=== PATIENT | male | born 1970 | race Caucasian/White ===

== ENCOUNTER 2016-04-13 20:04 | Inpatient (IN) | payer OTHER ==
[2016-04-13] MEDS ORDERED: Ondansetron INJ* 2 MG/ML VIAL IV ONE (20:39)
[2016-04-13] MEDS ORDERED: NS 0.9% 1000 ML* 1,000 ML IV ONE (20:39)
[2016-04-13] MEDS ORDERED: Morphine INJ* 4 MG/ML 1 ML CARPUJECT IV ONE (20:39)
[2016-04-13] MEDS ORDERED: HYDROmorphone INJ* 1 MG/ML CARPUJECT SYRINGE IV SLOW PU ONE ×3 (20:53→22:13)
--- NOTE | 2016-04-13 20:53 | ED ---
Pepe Looney Erika, scribed for Wagner Karimi MD on 04/13/16 at 2050 . Abdominal Pain/Male - HPI Summary HPI Summary: Patient is a 45-year-old male presenting to the ED with a CC of constant, diffuse abdominal pain starting this morning. Pt reports pain began to significantly worsen around 18:00 today, after he took Pepto. Pt also reports diarrhea 10x/day for the past week, for which he tried taking imodium. He notes nausea, and denies vomiting. - History of Current Complaint Chief Complaint: EDAbdPain Stated Complaint: ABD PAIN Time Seen by Provider: 04/13/16 20:29 Hx Obtained From: Patient Onset/Duration: Gradual Onset, Lasting Hours, Worse Since Timing: Constant Severity Initially: Mild Severity Currently: Moderate Pain Intensity: 9 Pain Scale Used: 0-10 Numeric Location: Diffuse Aggravating Factor(s): Other: - possibly Pepto Alleviating Factor(s): Nothing Associated Signs And Symptoms: Positive: Nausea, Diarrhea. Negative: Vomiting - Allergies/Home Medications Allergies/Adverse Reactions: Allergies Allergy/AdvReac Type Severity Reaction Status Date / Time No Known Allergies Allergy Verified 01/06/16 14:38 PMH/Surg Hx/FS Hx/Imm Hx Cardiovascular History: Reports: Hx Hypertension Denies: Hx Pacemaker/ICD Sensory History: Denies: Hx Hearing Aid Psychiatric History: Denies: Hx Panic Disorder - Surgical History Surgery Procedure, Year, and Place: RIGHT KNEE ORTHO X 4 ; BACK 2000 ; LEFT SHOULDER 2011 ; RIGHT SHOULDER 11/22/2015 - Immunization History Date of Tetanus Vaccine: up to date Date of Influenza Vaccine: not yet Infectious Disease History: No Infectious Disease History: Denies: Traveled Outside the [place] in Last 30 Days - Family History Known Family History: Positive: Hypertension, Diabetes Negative: Cardiac Disease - Social History Alcohol Use: Daily Alcohol Amount: 8 BEERS DAILY Substance Use Type: Reports: None Hx Tobacco Use: No Smoking Status (MU): Never Smoked Tobacco Have You Smoked in the Last Year: No Review of Systems Negative: Fever Positive: Abdominal Pain, Diarrhea, Nausea. Negative: Vomiting All Other Systems Reviewed And Are Negative: Yes Physical Exam Triage Information Reviewed: Yes Vital Signs On Initial Exam: Initial Vitals Temp Pulse Resp BP Pulse Ox 97.7 F 110 20 110/80 99 04/13/16 20:19 04/13/16 20:19 04/13/16 20:19 04/13/16 20:19 04/13/16 20:19 Vital Signs Reviewed: Yes Appearance: Positive: Well-Appearing, Pain Distress - moderate discomfort Skin: Positive: Warm, Dry Head/Face: Positive: Normal Head/Face Inspection Eyes: Positive: ARANZA ENT: Positive: Hearing grossly normal Neck: Positive: Supple Respiratory/Lung Sounds: Positive: Clear to Auscultation, Breath Sounds Present Cardiovascular: Positive: Normal Abdomen Description: Positive: Soft, Other: - moderate upper abd tenderness. Negative: Distended, Guarding Bowel Sounds: Positive: Present Musculoskeletal: Positive: Strength/ROM Intact Neurological: Positive: Sensory/Motor Intact, Alert, Oriented to Person Place, Time Psychiatric: Positive: Normal Diagnostics - Vital Signs Vital Signs Temp Pulse Resp BP Pulse Ox 04/13/16 20:19 97.7 F 110 20 110/80 99 - Laboratory Result Diagrams: 04/13/16 20:45 04/13/16 20:45 Lab Statement: Any lab studies that have been ordered have been reviewed, and results considered in the medical decision making process. Re-Evaluation - Re-Evaluation First Eval Re-Evaluation Time: 22:48 - results d/w pt, mildly improved Change: Improved Abdominal Pain Fem Course/Dx - Course Assessment/Plan: A 45 y/o M presents to the ED with a CC of abdominal pain starting today, and diarrhea 10x/day for the past week. Blood work reveals a lactic acid of 4.6 and lipase of 1204. I will discuss my findings with Dr. Mujica for admission. - Diagnoses Provider Diagnoses: Pancreatitis - Provider Notifications Discussed Care Of Patient With: Dr. Mujica (hospitalist) at 21:51 - agrees to admit, pending CT result Instructed by Provider To: Admit As Inpatient - Critical Care Time Critical Care Time: 30-74 min Discharge - Discharge Plan Condition: Fair Disposition: ADMITTED TO [facility] documentation as recorded by the Pepe fierro Erika accurately reflects the service I personally performed and the decisions made by me, Wagner Karimi MD.
[2016-04-13 20:59] LABS: Hematocrit 49 % (42-52); Hemoglobin 16.7 g/dl (14.0-18.0); Mean Corpuscular HGB Conc 34 g/dl (31-36); Mean Corpuscular Hemoglobin 33 pg (27-31); Mean Corpuscular Volume 95 fL (80-94); Mean Platelet Volume 8 um3 (7.4-10.4); Red Blood Count 5.15 10^6/ul (4.0-5.4); Red Cell Distribution Width 13 % (10.5-15)
[2016-04-13] MEDS ORDERED: HYDROmorphone INJ* 1 MG/ML CARPUJECT SYRINGE ONE (21:05)
[2016-04-13 21:07] LABS: Add Diff/Slide Review? Slide Review Added; Comments Flag Yes
[2016-04-13 21:16] LABS: ALT 31 U/L (7-52); AST 87 U/L (13-39); Alkaline Phosphatase 59 U/L (34-104); Anion Gap 15 mmol/L (2-11); BUN/Creatinine Ratio 12.8 (8-20); Blood Urea Nitrogen 15 mg/dL (6-24); C Reactive Protein < 1.00 mg/L (< 5.00); CO2 Carbon Dioxide 19 mmol/L (22-32); Calcium 8.3 mg/dL (8.6-10.3); Chloride 99 mmol/L (101-111); EGFR African American 85.9 (>60); EGFR Non-African American 66.8 (>60); Glucose 157 mg/dL (70-100); Magnesium 1.9 mg/dL (1.9-2.7); Sodium 133 mmol/L (133-145)
[2016-04-13] MEDS ORDERED: Iohexol 300* (CONTRAST) 10 ML SDV IV ONE (21:21)
[2016-04-13 21:36] LABS: Lipase 1204 U/L (11.0-82.0)
[2016-04-13 22:32] LABS: Alcohol 326 mg/dL (<10)
--- NOTE | 2016-04-13 23:13 | RAD ---
INDICATION: Lower abdominal pain. Diarrhea for one week. COMPARISON: None. TECHNIQUE: Multidetector CT images were obtained from the lung bases to the ischial tuberosities with 141 mL Omnipaque 300 IV and oral contrast. Multiplanar reformation. REPORT: The visualized inferior thorax is remarkable for cardiomegaly and mild dependent subsegmental atelectasis. Diffuse decreased density of the liver consistent with fatty infiltration. No focal hepatic lesions or biliary dilatation. Moderately distended gallbladder without suspicious CT finding. Severe peripancreatic inflammatory change and small volume of nonloculated anterior pararenal space retroperitoneal fluid without evidence for a loculated fluid collection. Suggestion of approximate 3 cm transverse by 2.1 cm AP hypoenhancing region at the head of the pancreas concerning for potential necrosis in setting of acute pancreatitis. Extension of the inflammatory process to the small bowel mesentery as well as the gastrohepatic and gastrosplenic ligaments. Unremarkable spleen. Moderate gastric distention with enteric contrast. Negative for small bowel dilatation or mural thickening. Unremarkable appendix visualized extending medially anterior from the cecum. Decompressed colon. Small volume of ascites tracks down RIGHT paracolic gutter from the peripancreatic inflammation. Negative for free air. Negative for hernias. Unremarkable adrenal glands. Symmetric nephrograms and pyelograms. Negative for focal renal lesions or hydronephrosis. Unremarkable ureters and moderately distended urinary bladder. Negative for lymphadenopathy. Normal diameter abdominal aorta and iliac arteries. Partial physiologic distention of the IVC. Normal opacification of the portal, splenic, and superior mesenteric veins. IMPRESSION: 1. Acute pancreatitis with significant peripancreatic inflammation and suggestion of potential pancreatic necrosis involving approximate 15 - 20% of the pancreas. 2. Small volume of nonloculated anterior pararenal space retroperitoneal fluid with intraperitoneal extension down the RIGHT paracolic gutter. Negative for loculated peripancreatic fluid. 3. Fatty infiltration of the liver. 4. Negative for biliary dilatation. Results discussed with Dr. Karimi 04/13/2016 11:06 PM EST
[2016-04-14] MEDS ORDERED: Acetaminophen TAB* 325 MG PO PRN (00:03)
[2016-04-14] MEDS ORDERED: Thiamine IV* 100 MG/ML 2 ML VIAL IM ONE (00:03)
[2016-04-14] MEDS: HYDROmorphone INJ* 2 MG/ML CARPUJECT SYRINGE IV SLOW PU PRN ×6 (00:10→20:01)
[2016-04-14] MEDS ORDERED: NS 0.9% 1000 ML* 1,000 ML IV SCH ×2 (00:15→10:30)
[2016-04-14] MEDS ORDERED: NS 0.9% w/ 20 Meq KCL 1000 ML* 1,000 ML IV SCH ×2 (01:00→10:08)
[2016-04-14] MEDS: LORazepam INJ* 2 MG/ML 1 ML VIAL IV SCH ×9 (01:44→22:09)
[2016-04-14 02:54] LABS: Urine Bilirubin Negative (Negative); Urine Glucose Negative (Negative); Urine Nitrite Negative (Negative)
--- NOTE | 2016-04-14 03:32 | HP ---
HISTORY AND PHYSICAL: DATE OF ADMISSION: 04/14/16 CHIEF COMPLAINT: Abdominal pain. HISTORY OF PRESENT ILLNESS: The patient is a 45-year-old gentleman who said this started this morning when he woke up with stomachache, but it never left, stayed constant throughout the day and then became worse, about 5 or 6 p.m. where it started to become 9/10 in severity. The pain in the abdomen as a sharp pain. He also had diarrhea today. No nausea or vomiting today. No fevers or chills. He was unable to eat today because of the pain. He does admit to drinking alcohol daily. In the ED, the patient was evaluated and found to have lipase of 1000 and a CAT scan consistent with pancreatitis. PAST MEDICAL HISTORY: Significant for high blood pressure. PAST SURGICAL HISTORY: Five surgeries to his right knee with no hardware, low back surgery to L4-L5, shoulder surgeries bilaterally. CURRENT MEDICATIONS: 1. Hydrochlorothiazide 12.5 mg daily. 2. Amlodipine/benazepril 5/20 one tablet daily. ALLERGIES: He has no known drug allergies. FAMILY HISTORY: Reviewed and noncontributory. SOCIAL HISTORY: No tobacco or drug use. He states he drinks alcohol daily. His is his healthcare proxy. REVIEW OF SYSTEMS: A 14-point review of system was completed with the patient. All pertinent positives and negatives are in the history of present illness, otherwise negative. PHYSICAL EXAMINATION GENERAL: Pleasant gentleman lying in bed, in no acute distress. VITAL SIGNS: Heart rate 102 beats per minute, respiratory rate 16 breaths per minute, pulse ox 95%, blood pressure 139/84, and temperature 97.7 degrees. HEENT: Normocephalic and atraumatic. Pupils equal, round, reactive to light. Moist mucous membranes. NECK: Supple. No JVD, bruits, palpable thyroid, or lymphadenopathy. CHEST: Clear to auscultation and percussion bilaterally. CARDIOVASCULAR: S1 and S2 appreciated. Regular rate and rhythm. ABDOMEN: Positive bowel sounds in all 4 quadrants. Soft, nontender, and nondistended. No hepatosplenomegaly. EXTREMITIES: No cyanosis, clubbing, or edema. +2 peripheral pulses bilaterally. NEUROLOGIC: Alert and oriented x3, moves all extremities. SKIN: No rashes or abnormalities. LABORATORY DATA/DIAGNOSTIC STUDIES: White count 13, hemoglobin 16.7, hematocrit 49, and platelets 224. Sodium 133, potassium 3.0, CO2 19, BUN 15, creat 1.17, glucose 157, lactic acid 4.6, total bili 1.2, AST is 87, ALT is 31, lipase is 204, serum alcohol 326. CT of the abdomen and pelvis shows acute pancreatitis with significant peripancreatic inflammation suggestive of potential pancreatic necrosis involving approximately 15% to 20% of the pancreas, small volume of non- loculated anterior pararenal space, retroperitoneal fluid with intraperitoneal extension down the right paracolic gutter. Negative for loculated pancreatic fluid, fatty infiltration of liver, negative for biliary dilatation. ASSESSMENT AND PLAN: 1. Pancreatitis. Make the patient n.p.o., Dilaudid p.r.n. for pain, Zofran p.r.n. for nausea, normal saline with 20 mEq K at 125 cc an hour, recheck lipase in the a.m., recheck basic metabolic profile in the a.m. 2. Alcohol abuse. Concerned this patient could go an alcohol withdrawal, placed on [facility] protocol, counseled the patient on alcohol use. He understands what he is doing to himself and will consider stopping. 3. Hypertension. Continue current regimen. 4. FEN. N.p.o. normal saline with 20 mEq of KCl as noted. 5. Lactic acidosis. Recheck in the morning. 6. The patient is a full code. TIME SPENT: Over 80 minutes was spent on this H and P, more than 40 minutes were spent in direct [id number] contact with the patient in evaluation, physical exam, and counselling and coordination of care. CC: Gloria Catalan MD * [id number]/[facility] #: [id number] [facility] CAMPUSDelicia
[2016-04-14] MEDS: Ondansetron INJ* 2 MG/ML VIAL IV PRN ×4 (03:49→20:01)
[2016-04-14] MEDS: Heparin VIAL(*) 5000 UNITS/ML VIAL (FIVE THOUSAND) SUBCUT SCH ×3 (05:29→22:09)
[2016-04-14 05:54] LABS: BUN/Creatinine Ratio 14.5 (8-20); Calcium 7.6 mg/dL (8.6-10.3); EGFR African American 80.4 (>60); EGFR Non-African American 62.5 (>60); Potassium 3.7 mmol/L (3.5-5.0)
[2016-04-14] MEDS ORDERED: Lisinopril TAB* 10 MG PO SCH (09:00)
[2016-04-14] MEDS ORDERED: amLODIPine TAB* 5 MG PO SCH (09:00)
[2016-04-14] MEDS ORDERED: Hydrochlorothiazide TAB* 25 MG PO SCH (09:00)
[2016-04-14] MEDS: Multivitamins/Minerals TAB PO SCH (09:17)
[2016-04-14] MEDS: Thiamine TAB* 100 MG TAB PO SCH (09:17)
[2016-04-14] MEDS: Folic Acid TAB* 1 MG PO SCH (09:18)
[2016-04-14] MEDS ORDERED: NS 0.9% 1000 ML* 1,000 ML IV ONE (10:10)
[2016-04-14] MEDS ORDERED: NS 0.9% 1000 ML* 2,000 ML IV ONE (10:14)
--- NOTE | 2016-04-14 10:39 | PN ---
Subjective Date of Service: 04/14/16 Interval History: Patient seen this morning. A bit lethargic but appropriate. Asking for water. Still with abdominal pain. No nausea/vomiting on the floor. He cannot tell me how much he has been drinking (12 beers/day in the past) but he says he has been sneaking vodka past his . Says his last drink was on 04/12 but EtOH was 326 on admission on 04/13 evening. Family History: Unchanged from Admission Social History: Unchanged from Admission Past Medical History: Unchanged from Admission Objective Active Medications: Acetaminophen (Tylenol Tab*) 650 mg PO Q4H PRN Amlodipine Besylate (Norvasc Tab*) 5 mg PO DAILY [facility] Folic Acid (Folvite Tab*) 1 mg PO DAILY [facility] Heparin Sodium (Porcine) (Heparin Vial(*)) 5,000 units SUBCUT Q8HR FREDDY Hydrochlorothiazide (Hydrodiuril Tab*) 12.5 mg PO DAILY [facility] Hydromorphone HCl (Dilaudid Iv*) 2 mg IV SLOW PU Q4H PRN Sodium Chloride (Ns 0.9% 1000 Ml*) 2,000 mls @ 1,000 mls/hr IV .PER RATE ONE Sodium Chloride (Ns 0.9% 1000 Ml*) 1,000 mls @ 200 mls/hr IV PER RATE FREDDY Lisinopril (Prinivil Tab*) 20 mg PO DAILY [facility] Lorazepam (Ativan Inj*) 0 mg IV .PER WAM SCORE FREDDY Lorazepam (Ativan Inj*) 1 mg IV Q8H FREDDY Multivitamins/Minerals (Theragran/Minerals Tab*) 1 tab PO DAILY [facility] Ondansetron HCl (Zofran Inj*) 4 mg IV Q4H PRN Thiamine HCl (Vitamin B-1 Tab*) 100 mg PO DAILY [facility] Vital Signs 04/14/16 04/14/16 04/14/16 01:11 01:44 01:55 Temperature 98.1 F Pulse Rate 105 Respiratory 16 16 16 Rate Blood Pressure 147/106 (mmHg) O2 Sat by Pulse 99 Oximetry 04/14/16 04/14/16 04/14/16 02:02 02:44 03:20 Temperature Pulse Rate 113 Respiratory 16 16 18 Rate Blood Pressure 151/99 (mmHg) O2 Sat by Pulse 95 Oximetry 04/14/16 04/14/16 09:04 09:18 Temperature 98.4 F Pulse Rate 135 Respiratory 14 16 Rate Blood Pressure 137/89 (mmHg) O2 Sat by Pulse 95 Oximetry Oxygen Devices in Use Now: None Appearance: Middle-aged, obese, M, laying in bed in mild distress, slightly lethargic Eyes: No Scleral Icterus Ears/Nose/Mouth/Throat: - - Dry MM Neck: NL Appearance and Movements; NL JVP Respiratory: Symmetrical Chest Expansion and Respiratory Effort, Clear to Auscultation Cardiovascular: NL Sounds; No Murmurs; No JVD, - - Tachycardic Abdominal: - - Soft, distended, TTP throughout, BS+, no rebound/guarding Lymphatic: No Cervical Adenopathy Extremities: No Edema Skin: No Rash or Ulcers Neurological: - - Lethargic but oriented x3 Result Diagrams: 04/13/16 20:45 04/14/16 05:05 Assess/Plan/Problems-Billing Assessment: Severe acute pancreatitis with necrosis in a 45 yo M with hx of EtOH abuse and HTN - Patient Problems (1) Acute pancreatic necrosis Current Visit: Yes Comment: Lipase trending down but tachycardia and lactic acidosis persist. I think he is under-resuscitated, will give 2L bolus now and increase NS to 200 cc/hr. GI consult. Will transfer patient to ICU for closer monitoring. No clear signs of infection at this point, will hold on ABx but will get GI input. NPO except ice chips. Recheck lactate and BMP this afternoon. (2) Alcohol withdrawal Current Visit: Yes Comment: Scoring slightly on WAM. Continue prn ativan, thiamine, folate, MVM. (3) HTN (hypertension) Current Visit: No Comment: Continue home medications. (4) DVT prophylaxis Current Visit: No Comment: HSQ
[2016-04-14 14:03] LABS: Hematocrit 49 % (42-52); Hemoglobin 16.7 g/dl (14.0-18.0); Mean Corpuscular HGB Conc 34 g/dl (31-36); Mean Corpuscular Hemoglobin 33 pg (27-31); Mean Corpuscular Volume 96 fL (80-94); Mean Platelet Volume 8 um3 (7.4-10.4); Red Cell Distribution Width 13 % (10.5-15); White Blood Count 19.7 10^3/ul (3.5-10.8)
[2016-04-14 14:18] LABS: BUN/Creatinine Ratio 14.5 (8-20); Blood Urea Nitrogen 22 mg/dL (6-24); Calcium 7.6 mg/dL (8.6-10.3); Chloride 105 mmol/L (101-111); EGFR African American 63.5 (>60); EGFR Non-African American 49.4 (>60); Glucose 147 mg/dL (70-100); Sodium 134 mmol/L (133-145)
--- NOTE | 2016-04-14 14:24 | PN ---
Progress Note - Progress Note Note: Critical Care Medicine Consultation Asked to see this 45 yo male with known EtOH abuse who was admitted with severe pancreatitis. Patient moved to ICU short while ago. Per patient was a former drinker of beer but more recently she has found vodka bottles at home. Developed progressive abdominal pain at home over the prior day and apparently had been experiencing diarrhea over the prior week. On admission his EtOH level was elevated and CT Scan revealed pancreatic inflammation with evidence of necrosis involving 15-20% of the pancreas. Patient had received a liter of IV fluids overnight and these have been increased now. He has been receiving Ativan in small doses for EtOH withdrawal. NKDA PMH HTN Soc , negative for tobacco and drugs SBP 124 HR 130-140 reg RR 20 SpO2 95-96 Skin no diaphoresis, no cyanosis Sclerae anicteric Oral mucosa pink Lungs with good air entry, no wheezes, no rhonchi Cor RRR tachy, no rub, no murmur Abd mild distension Ext no edema Neuro tremulous with movements WBC 19.7 Hgb 16.7 HCT 49 Plt 169 HCO3 14 Creat 1.5 Lactate 3.5 (formerly 5.0) Ca 7.6 Lipase 490 (formerly 1204) Bili 1.2 AlkPhos 59 AST 87 ALT 31 Urine SG 1.032 IMP: Clinical Toxicity as a consequence of both severe pancreatitis and EtOH withdrawal Suspect patient still quite behind on fluids after a week of diarrhea and sequestration into abdomen due to pancreatitis as supported by concentrated H/H and concentrated urine Lactic acidosis improved with augmentation of fluids...need to continue to "catch up" Narrowing of strong ion difference consistent with component of hyperchloremic acidosis due NS infusions PLAN/REC: Continued aggressive IV fluids Am ordering PICC line for additional IV access Once additional access in place to order bicarb gtt Collect blood cultures Meropenem ordered empirically Continue benzodiazepines to assist in abating EtOH withdrawal Keep HOB raised NPO for now DVT prophyl
[2016-04-14 14:26] LABS: CO2 Carbon Dioxide 14 mmol/L (22-32)
[2016-04-14 14:41] LABS: PCO2 Arterial 32 mmHg (35-45)
[2016-04-14] MEDS: Meropenem 1 GM PREMIX(*) 1 GM/50 ML BAG IV SCH (15:45)
[2016-04-14] MEDS ORDERED: Sodium Bicarbonate 8.4% IV* 150 MEQ in D5W 1000 ML BAG* 1,000 ML IVPB SCH ×2 (16:30→17:03)
--- NOTE | 2016-04-14 16:43 | CONS ---
GASTROENTEROLOGY CONSULTATION DATE OF CONSULT: 04/14/2016. INDICATION: Acute pancreatitis. HISTORY OF PRESENT ILLNESS: Mr. Fierro is a 45-year-old alcoholic who presents to the ED last night with worsening abdominal pain, diarrhea, and anorexia. He was unable to eat because of the pain. His states that he had been drinking beer, however had switched over to vodka. He drinks on a daily basis. Most of the information is gathered from his . He has never had pancreatitis in the past; however, he has been having symptoms for the past few weeks. PAST MEDICAL HISTORY: Significant for hypertension. PAST SURGICAL HISTORY: Numerous orthopedic surgeries. MEDICATIONS: Amlodipine Benazepril and Hydrochlorothiazide. ALLERGIES: None. FAMILY HISTORY: No alcoholism in the family. SOCIAL HISTORY: No smoking or IV drug use, but he drinks alcohol on a regular basis. REVIEW OF SYSTEMS: Twelve systems were reviewed. Other than that mentioned in the HPI were unremarkable. PHYSICAL EXAM: General: Slightly ill-appearing male in no apparent distress. He is alert and oriented. Vital Signs: Temperature 99.2, blood [id number]/97, respiratory rate 21, pulse 144. Heart: Regular rate and rhythm, tachycardic. Lungs: Clear to auscultation. Abdomen: Obese, hypoactive bowel sounds, soft, mildly distended. No rebound, no guarding, tender throughout. Skin: Warm and dry. LAB DATA OF NOTE/DIAGNOSTIC STUDIES: AST is 87, ALT 31; white count elevated at 19.7, hemoglobin 16.7, platelets 169; sodium 134, BUN 22, creatinine 1.52, glucose 157, lipase went from 1204 to 490, his lactate went from 5 to 3.8, calcium 7.6. He has a CT from yesterday that shows acute pancreatitis with approximately 15 to 20 percent necrosis. ASSESSMENT AND PLAN: This is a 45-year-old gentleman with acute alcoholic pancreatitis. Currently his Abebe score is only 1. We do not have an LDH to properly calculate it, however. He does have an elevated white count. He has fairly severe pancreatitis by CT criteria. Currently, he is getting fluid at 200 an hour which is very appropriate. He has pain control. He is NPO. He was started empirically on antibiotics. We will continue to monitor him very closely and we should recalculate his [place] score tomorrow. [id number]/[facility] #: [id number] [facility]
[2016-04-14] MEDS: Sodium Bicarbonate 8.4% IV* 150 MEQ in D5W 1000 ML BAG* 1,000 ML IVPB SCH ×2 (18:24→22:21)
[2016-04-14 19:01] LABS: Albumin 2.9 g/dL (3.2-5.2); BUN/Creatinine Ratio 12.2 (8-20); Calcium 6.7 mg/dL (8.6-10.3); EGFR African American 49.4 (>60); EGFR Non-African American 38.4 (>60); Globulin 2.2 g/dL (2-4); Potassium 3.9 mmol/L (3.5-5.0); Total Bilirubin 5.7 mg/dL (0.2-1.0); Total Protein 5.1 g/dL (6.4-8.9)
[2016-04-15] MEDS: Meropenem 1 GM PREMIX(*) 1 GM/50 ML BAG IV SCH
[2016-04-15] MEDS: LORazepam INJ* 2 MG/ML 1 ML VIAL IV SCH ×13 (00:01→23:48)
[2016-04-15] MEDS: HYDROmorphone INJ* 2 MG/ML CARPUJECT SYRINGE IV SLOW PU PRN ×5 (00:15→20:09)
[2016-04-15] MEDS: Sodium Bicarbonate 8.4% IV* 150 MEQ in D5W 1000 ML BAG* 1,000 ML IVPB SCH ×3 (03:59→16:24)
[2016-04-15 05:12] LABS: Hematocrit 45 % (42-52); Hemoglobin 15.3 g/dl (14.0-18.0); Mean Corpuscular HGB Conc 34 g/dl (31-36); Mean Corpuscular Hemoglobin 33 pg (27-31); Mean Corpuscular Volume 96 fL (80-94); Mean Platelet Volume 9 um3 (7.4-10.4); Red Blood Count 4.66 10^6/ul (4.0-5.4); Red Cell Distribution Width 13 % (10.5-15); White Blood Count 14.6 10^3/ul (3.5-10.8)
[2016-04-15 05:14] LABS: Add Diff/Slide Review? Slide Review Added; Comments Flag Yes
[2016-04-15 05:23] LABS: Albumin 2.8 g/dL (3.2-5.2); BUN/Creatinine Ratio 10.5 (8-20); Calcium 6.7 mg/dL (8.6-10.3); EGFR African American 29.6 (>60); Globulin 2.6 g/dL (2-4); Potassium 3.7 mmol/L (3.5-5.0); Total Bilirubin 4.9 mg/dL (0.2-1.0); Total Protein 5.4 g/dL (6.4-8.9)
[2016-04-15] MEDS: Ondansetron INJ* 2 MG/ML VIAL IV PRN ×3 (05:58→20:09)
[2016-04-15] MEDS: Heparin VIAL(*) 5000 UNITS/ML VIAL (FIVE THOUSAND) SUBCUT SCH ×3 (05:58→21:32)
[2016-04-15] MEDS ORDERED: Meropenem 1 GM PREMIX(*) 1 GM/50 ML BAG IV SCH (08:00)
--- NOTE | 2016-04-15 08:25 | PN ---
Progress Note - Progress Note Note: [facility] Progress Note Calm at present SBP [address] on monitor RR 20-25 SpO2 94-95 (NC) UO ~1175 ml I/Os (+)2.2 liters Skin no diaphoresis, no cyanosis Oral mucosa pink Lungs with good air entry, no wheezes, (+) rhonchi Cor RRR tachy, no rub, no murmur Abd mild-mod distension, BS present Ext mild edema Rt hand PIV LUE PIV WBC 14.6 Hgb 15.3 Plt 128 HCO3 19 BUN/Creat 31/2.95 Lactate 3.7 Ca 6.7 Bili 4.9 AST 1034 ALT 135 Alb 2.8 IMP: Clinical Toxicity as a consequence of both severe pancreatitis and EtOH withdrawal Lactic acidosis improved initially, now at a plateau Metabolic acidosis better with change of IV fluids Acute Kidney Injury EtOH dependence going through withdrawal Hyperbilirubinemia/Cholestasis Hypocalcemia and Transaminitis c/w severe pancreatitis PLAN/REC: Continued IV fluids with bicarb PICC line for additional IV access Dose adjust Meropenem down to reflect decline in renal function Continue benzodiazepines to assist in abating EtOH withdrawal Analgesia PRN Keep HOB raised NPO for now DVT prophyl Abd Sonogram Trend Lactate, LFTs, BMP Check Mg and Phos Check UA, Urine -lytes and osm Discussed with Dr Best
[2016-04-15] MEDS: Meropenem 500MG PREMIX(*) 500 MG/50 ML BAG IV SCH ×3 (08:29→23:49)
[2016-04-15 09:54] LABS: Urine Bacteria Absent (Absent); Urine Bilirubin 1+ (Negative); Urine Glucose 1+(50 mg/dL) (Negative); Urine Nitrite Negative (Negative)
--- NOTE | 2016-04-15 09:55 | PN ---
Subjective Date of Service: 04/15/16 Interval History: Patient seen this morning shortly after he received Dilaudid and he was lethargic. At this time denied pain but was clearly tender to palpation. and mother at bedside updated. Family History: Unchanged from Admission Social History: Unchanged from Admission Past Medical History: Unchanged from Admission Objective Active Medications: Acetaminophen (Tylenol Tab*) 650 mg PO Q4H PRN PRN Reason: PAIN Heparin Sodium (Porcine) (Heparin Vial(*)) 5,000 units SUBCUT Q8HR [facility] Last Admin: 04/15/16 05:58 Dose: 5,000 units Hydromorphone HCl (Dilaudid Iv*) 2 mg IV SLOW PU Q4H PRN PRN Reason: PAIN Last Admin: 04/15/16 09:29 Dose: 2 mg Sodium Bicarbonate 150 meq/ (Dextrose) 1,150 mls @ 200 mls/hr IVPB Q6H [facility] Last Admin: 04/15/16 03:59 Dose: 200 mls/hr Lactated Ringer's (Lactated Ringers 1000 Ml Bag*) 1,000 mls @ 0 mls/hr IV WIDE OPEN [facility] PRN Reason: Wide Open Stop: 04/15/16 23:59 Last Admin: 04/15/16 05:38 Dose: 999 mls/hr Meropenem (Merrem 500mg Premix(*)) 500 mg in 50 mls @ 100 mls/hr IV Q8H [facility] Last Admin: 04/15/16 08:29 Dose: 100 mls/hr Lorazepam (Ativan Inj*) 0 mg IV .PER WAM SCORE [facility] PRN Reason: Protocol Last Admin: 04/15/16 08:06 Dose: 5 mg Lorazepam (Ativan Inj*) 1 mg IV Q12H [facility] PRN Reason: Taper Stop: 04/16/16 20:59 Last Admin: 04/15/16 05:57 Dose: Not Given Ondansetron HCl (Zofran Inj*) 4 mg IV Q4H PRN PRN Reason: NAUSEA Last Admin: 04/15/16 09:32 Dose: 4 mg Pantoprazole Sodium (Protonix Iv*) 40 mg IV Q24H [facility] Vital Signs 04/14/16 04/14/16 04/14/16 10:18 11:15 11:18 Temperature Pulse Rate 129 Respiratory 19 19 Rate Blood Pressure 126/87 (mmHg) O2 Sat by Pulse 95 Oximetry 04/14/16 04/14/16 04/14/16 16:45 16:51 16:54 Temperature Pulse Rate 147 Respiratory 18 18 17 Rate Blood Pressure 100/79 (mmHg) O2 Sat by Pulse 93 Oximetry 04/15/16 04/15/16 04/15/16 00:15 01:00 02:00 Temperature Pulse Rate Respiratory 16 22 16 Rate Blood Pressure 124/86 118/88 (mmHg) O2 Sat by Pulse 92 93 Oximetry 04/15/16 04/15/16 04/15/16 02:09 03:00 03:53 Temperature Pulse Rate Respiratory 18 19 20 Rate Blood Pressure 115/84 (mmHg) O2 Sat by Pulse 93 Oximetry 04/15/16 04/15/16 04/15/16 08:15 08:30 08:45 Temperature 101.4 F 101.3 F 101.0 F Pulse Rate 128 128 119 Respiratory 21 19 19 Rate Blood Pressure 135/89 145/95 155/99 (mmHg) O2 Sat by Pulse 95 94 94 Oximetry Oxygen Devices in Use Now: Nasal Cannula Appearance: Middle-aged, M, laying in bed, lethargic Eyes: No Scleral Icterus Ears/Nose/Mouth/Throat: - - Dry MM Neck: NL Appearance and Movements; NL JVP Respiratory: Symmetrical Chest Expansion and Respiratory Effort, - - Some diminised BS in bases Cardiovascular: - - Tachycardic Abdominal: - - Obese, distended, soft, TTP diffusely, BS+, no rebound/guarding Lymphatic: No Cervical Adenopathy Extremities: No Edema Skin: No Rash or Ulcers Neurological: - - Lethargic, no focal deficits Lines/Tubes/Other Access: Clean, Dry and Intact Hendrix Result Diagrams: 04/15/16 05:00 04/15/16 05:00 Microbiology and Other Data: Microbiology 04/14/16 12:00 Nasal Screen MRSA (PCR)([facility]) - Final Nasal Mrsa Negative Assess/Plan/Problems-Billing Assessment: Severe acute pancreatitis with necrosis, lactic acidosis, LUPIS, transaminitis in a 45 yo M with hx of EtOH abuse and HTN - Patient Problems (1) Acute pancreatic necrosis Current Visit: Yes Comment: Appreciate, ICU and GI assistance. Lactic acid persistent, received additional 1L bolus this morning. Continue IVF at 200 cc/ hr. Will continue to trend lactate. Will get RUQ US to evaluate for any obstruction with elevated LFTs and bili which seem to be trending down. Continue Meropenem. (2) Alcohol withdrawal Current Visit: Yes Comment: Continue ativan taper and prn as per protocol. (3) LUPIS (acute kidney injury) Current Visit: Yes Comment: Renal fucntion worsening from severe pancreatitis. Continue to trend and continue aggressive fluid repletion. UA and urine electrolytes ordered by Dr. Avitia and pending. (4) Metabolic acidosis Current Visit: Yes Comment: 2/2 NS infusion, lactic acidosis. Improving with bicarb gtt, continue. (5) HTN (hypertension) Current Visit: No Comment: Holding home medications. (6) DVT prophylaxis Current Visit: No Comment: HSQ
[2016-04-15 09:56] LABS: Magnesium 1.2 mg/dL (1.9-2.7)
[2016-04-15 09:57] LABS: Urine Random Chloride 22 mmol/L; Urine Random Potassium 78.9 mmol/L; Urine Random Sodium < 18 mmol/L
[2016-04-15] MEDS: Pantoprazole IV* 40 MG IV SCH (10:45)
[2016-04-15] MEDS ORDERED: Magnesium Sulfate IV* 3 GM in NS 0.9% 100 ML* 100 ML IVPB ONE (10:47)
[2016-04-15] MEDS ORDERED: Potassium Phosphate IV* 10 MMOLE in NS 0.9% 250 ML* 250 ML IVPB ONE (10:48)
[2016-04-15 11:01] LABS: Albumin 2.6 g/dL (3.2-5.2); Calcium 6.6 mg/dL (8.6-10.3); EGFR African American 32.1 (>60); EGFR Non-African American 24.9 (>60); Globulin 2.3 g/dL (2-4); Potassium 3.3 mmol/L (3.5-5.0); Total Bilirubin 4.2 mg/dL (0.2-1.0); Total Protein 4.9 g/dL (6.4-8.9)
--- NOTE | 2016-04-15 11:28 | RAD ---
INDICATION: Right upper quadrant pain. COMPARISON: Comparison is made with a prior CT study of the abdomen and pelvis from April 13, 2016. TECHNIQUE: Multiple real-time images of the right upper quadrant were obtained. FINDINGS: The gallbladder appear normal. No gallbladder wall thickening or pericholecystic fluid is present. No intra or extrahepatic ductal distention is present. The common bile duct measured 0.2 cm in diameter. The liver is mildly enlarged and increased in echogenicity consistent with fatty infiltration correlating with the prior CT study. No significant focal abnormality is seen. The pancreas is obscured by overlying bowel gas. The right kidney is normal in size without evidence for hydronephrosis. There is a small amount of free intraperitoneal fluid correlating with the prior CT study and the patient's history of pancreatitis. IMPRESSION: 1. NORMAL EXAMINATION OF THE GALLBLADDER. 2. MILD HEPATOMEGALY AND FINDINGS CONSISTENT WITH FATTY INFILTRATION. 3. SMALL AMOUNT OF FREE INTRAPERITONEAL FLUID.
[2016-04-15 16:57] LABS: Albumin 2.7 g/dL (3.2-5.2); Calcium 6.8 mg/dL (8.6-10.3); EGFR African American 33.6 (>60); EGFR Non-African American 26.1 (>60); Globulin 2.3 g/dL (2-4); Potassium 3.2 mmol/L (3.5-5.0); Total Bilirubin 3.7 mg/dL (0.2-1.0)
[2016-04-15] MEDS ORDERED: Insulin REGULAR(*) 1 UNITS UNIT SUBCUT ONE (17:18)
[2016-04-15] MEDS ORDERED: Insulin REGULAR(*) 1 UNITS UNIT ONE (17:21)
[2016-04-15] MEDS: NS 0.9% 1000 ML* 1,000 ML IV SCH ×2 (17:25→22:23)
[2016-04-15] MEDS: Insulin REGULAR(*) 1 UNITS UNIT SUBCUT SCH ×2 (17:28→23:49)
[2016-04-16] MEDS: Ondansetron INJ* 2 MG/ML VIAL IV PRN
[2016-04-16] MEDS: HYDROmorphone INJ* 2 MG/ML CARPUJECT SYRINGE IV SLOW PU PRN ×6 (00:21→22:57)
[2016-04-16] MEDS: Acetaminophen ADULT LIQ* 650 MG/20.3 ML UDC PO PRN ×2 (00:21→04:04)
[2016-04-16] MEDS: NS 0.9% 1000 ML* 1,000 ML IV SCH ×4 (03:11→19:37)
[2016-04-16] MEDS: LORazepam INJ* 2 MG/ML 1 ML VIAL IV SCH ×13 (04:01→23:46)
[2016-04-16] MEDS: Insulin REGULAR(*) 1 UNITS UNIT SUBCUT SCH ×4 (05:57→23:45)
[2016-04-16] MEDS: Heparin VIAL(*) 5000 UNITS/ML VIAL (FIVE THOUSAND) SUBCUT SCH ×3 (05:59→21:47)
[2016-04-16 06:29] LABS: Hematocrit 37 % (42-52); Hemoglobin 12.6 g/dl (14.0-18.0); Mean Corpuscular HGB Conc 34 g/dl (31-36); Mean Corpuscular Hemoglobin 33 pg (27-31); Mean Corpuscular Volume 97 fL (80-94); Mean Platelet Volume 9 um3 (7.4-10.4); Red Cell Distribution Width 13 % (10.5-15); White Blood Count 11.3 10^3/ul (3.5-10.8)
[2016-04-16 06:36] LABS: Add Diff/Slide Review? Slide Review Added; Comments Flag Yes
[2016-04-16 06:43] LABS: Albumin 2.6 g/dL (3.2-5.2); BUN/Creatinine Ratio 18.7 (8-20); Calcium 6.8 mg/dL (8.6-10.3); EGFR African American 45.5 (>60); EGFR Non-African American 35.4 (>60); Globulin 2.8 g/dL (2-4); Total Bilirubin 2.2 mg/dL (0.2-1.0); Total Protein 5.4 g/dL (6.4-8.9)
[2016-04-16 06:47] LABS: Potassium 3.5 mmol/L (3.5-5.0)
--- NOTE | 2016-04-16 07:56 | PN ---
Progress Note - Progress Note Note: [facility] Progress Note Resting calmly SBP [address] on monitor RR 12 Temp 100.0 SpO2 95 (NC) UO ~1225 ml I/Os (+)2.8 liters Skin no diaphoresis, no cyanosis Oral mucosa pink Lungs with good air entry, no wheezes Cor RRR tachy, no rub, no murmur Abd mild-mod distension, few BS noted Ext mild edema RUE PICC LUE PIV WBC 11.3 Hgb 12.6 Plt 100 HCO3 30 BUN/Creat 38/2.0 Lactate 2.4 Ca 6.8 Bili 2.0 AST 88 ALT 51 Alb 2.6 Urine Na <18 Urine SG 1.036 Abd Sono..no biliary ductal or GB pathology noted IMP: SIRS secondary to Severe Pancreatitis ....clinical picture and toxicity subsiding ....Lactic acid improved further ....tachycardia subsiding ....Transaminitis and Hyperbilirubinemia subsiding....conceivably also could have had contribution of alcoholic hepatitis in addition to pancreatitis ....Hypocalcemia stable Acute Kidney Injury.....subsiding EtOH dependence going through withdrawal...manageable Metabolic alkalosis secondary to bicarb gtt which was discontinued ytdy afternoon/evening and IV NS resumed Hypokalemia, Hypomagnesemia, and Hypophosphatemia....supplemented ytdy Urine Na and SG ytdy suggest patient was still hypovolemic Hyperglycemia...due to toxic syndrome plus may become diabetic as a consequence of pancreatic necrosis Also given patient's diarrhea for a week pre-admission would look for signs of pancreatic exocrine deficiency as may need pancreatic enzyme tbs pre- meals Would expect evolution to a pancreatic pseudocyst over time which might need drainage by Interventional radiology or General Surgery PLAN/REC: Continue IV hydration with NS Meropenem ...dose adjust in relation to renal indices...can decide on cont'd therapy vs discontinuation after next CT Scan CT Scan Abdomen in next few days for follow-up...as long as all is improving would allow hopefully for full recovery of renal function so as to obtain a CT with contrast to better assess pancreatic viability Benzodiazepines to assist in abating EtOH withdrawal Analgesia PRN Keep HOB raised DVT prophyl Track Mg & Phos intermittently and supplement accordingly Glycemic control with Insulin as needed Discussed with Dr Best...will no longer follow actively at this point. Dr Martínez assumes coverage of ICU tomorrow should condition change and further CCM related input desired.
[2016-04-16 08:10] LABS: Eosinophils % 1 % (0-6); Immature Granulocytes 11 % (0-9); Neutrophil % 70 % (38-83)
[2016-04-16 08:11] LABS: RBC Morphology Normal (Normal)
[2016-04-16] MEDS: Meropenem 500MG PREMIX(*) 500 MG/50 ML BAG IV SCH ×3 (08:48→23:26)
[2016-04-16] MEDS: Pantoprazole IV* 40 MG IV SCH (08:48)
--- NOTE | 2016-04-16 09:09 | PN ---
Subjective Date of Service: 04/16/16 Interval History: Patient seen this morning. Lethargic, denies pain at this time, thought he was at home. Recently received ativan. Mother at bedside giving moist swabs. Family History: Unchanged from Admission Social History: Unchanged from Admission Past Medical History: Unchanged from Admission Objective Active Medications: Acetaminophen (Tylenol Adult Liq*) 650 mg PO Q4H PRN Heparin Sodium (Porcine) (Heparin Vial(*)) 5,000 units SUBCUT Q8HR [facility] Heparin Sodium (Porcine) (Heparin Flush Picc/Ml/Cvc(*)) 1 - 3 ml FLUSH 0600, 1800 [facility] Hydromorphone HCl (Dilaudid Iv*) 2 mg IV SLOW PU Q4H PRN Meropenem (Merrem 500mg Premix(*)) 500 mg in 50 mls @ 100 mls/hr IV Q8H [facility] Sodium Chloride (Ns 0.9% 1000 Ml*) 1,000 mls @ 200 mls/hr IV PER RATE [facility] Insulin Human Regular (Insulin Regular(*)) 0 - 8 units SUBCUT FS Q6 ICU [facility] Lorazepam (Ativan Inj*) 0 mg IV .PER WAM SCORE [facility] Lorazepam (Ativan Inj*) 0.5 mg IV Q12H [facility] Ondansetron HCl (Zofran Inj*) 4 mg IV Q4H PRN Pantoprazole Sodium (Protonix Iv*) 40 mg IV Q24H [facility] Vital Signs 04/15/16 04/15/16 04/15/16 09:15 09:29 09:30 Temperature 101.1 F 101.1 F Pulse Rate 128 131 Respiratory 20 23 25 Rate Blood Pressure 148/93 139/108 (mmHg) O2 Sat by Pulse 94 95 Oximetry 04/15/16 04/15/16 04/15/16 09:45 10:00 10:30 Temperature 101.2 F 101.3 F 101.5 F Pulse Rate 130 132 132 Respiratory 14 16 15 Rate Blood Pressure 121/89 108/77 135/79 (mmHg) O2 Sat by Pulse 95 95 95 Oximetry 04/15/16 04/15/16 04/15/16 10:45 11:00 11:15 Temperature 101.5 F 101.3 F 101.0 F Pulse Rate 127 126 125 Respiratory 22 14 23 Rate Blood Pressure 113/78 117/86 110/80 (mmHg) O2 Sat by Pulse 94 94 95 Oximetry 04/15/16 04/15/16 04/15/16 11:30 11:45 12:00 Temperature 100.8 F 101.0 F 100.9 F Pulse Rate 127 123 126 Respiratory 18 15 14 Rate Blood Pressure 122/78 120/71 125/89 (mmHg) O2 Sat by Pulse 95 94 94 Oximetry 04/15/16 04/15/16 04/15/16 12:15 12:30 12:33 Temperature 100.6 F 100.6 F Pulse Rate 125 120 Respiratory 20 16 19 Rate Blood Pressure 120/80 128/84 (mmHg) O2 Sat by Pulse 95 95 Oximetry 04/15/16 04/15/16 04/15/16 12:45 13:00 13:15 Temperature 100.7 F 100.7 F 100.8 F Pulse Rate 125 127 125 Respiratory 17 18 18 Rate Blood Pressure 121/83 136/98 115/78 (mmHg) O2 Sat by Pulse 93 93 94 Oximetry 04/15/16 04/15/16 04/15/16 13:30 13:45 14:00 Temperature 100.8 F 100.7 F 100.9 F Pulse Rate 125 125 129 Respiratory 16 16 19 Rate Blood Pressure 114/82 118/81 108/80 (mmHg) O2 Sat by Pulse 93 93 93 Oximetry 04/15/16 04/15/16 04/15/16 14:25 14:30 15:00 Temperature 101.0 F 100.8 F Pulse Rate 130 124 Respiratory 19 20 19 Rate Blood Pressure 128/86 128/74 (mmHg) O2 Sat by Pulse 94 93 Oximetry 04/15/16 04/15/16 04/15/16 15:30 16:00 16:13 Temperature 100.9 F 100.8 F Pulse Rate 128 126 Respiratory 21 18 22 Rate Blood Pressure 119/82 127/90 (mmHg) O2 Sat by Pulse 93 93 Oximetry 04/15/16 04/15/16 04/15/16 16:15 16:30 16:57 Temperature 100.8 F Pulse Rate 124 Respiratory 22 15 14 Rate Blood Pressure 113/69 (mmHg) O2 Sat by Pulse 92 Oximetry 04/15/16 04/15/16 04/15/16 17:00 17:30 18:00 Temperature 100.9 F 100.9 F 100.9 F Pulse Rate 122 125 125 Respiratory 12 15 15 Rate Blood Pressure 104/71 117/81 109/86 (mmHg) O2 Sat by Pulse 94 93 93 Oximetry 04/15/16 04/15/16 04/15/16 18:30 19:00 19:30 Temperature 100.9 F 100.9 F 100.9 F Pulse Rate 121 Respiratory 28 14 14 Rate Blood Pressure 109/77 113/79 107/76 (mmHg) O2 Sat by Pulse 94 93 93 Oximetry 04/15/16 04/15/16 04/15/16 20:00 20:09 20:30 Temperature 100.9 F 101.2 F Pulse Rate 123 Respiratory 19 26 11 Rate Blood Pressure 119/80 113/79 (mmHg) O2 Sat by Pulse 92 93 Oximetry 04/15/16 04/15/16 04/15/16 20:48 21:00 21:30 Temperature 101.4 F 101.4 F Pulse Rate Respiratory 29 11 16 Rate Blood Pressure 107/84 115/77 (mmHg) O2 Sat by Pulse 93 93 Oximetry 04/15/16 04/15/16 04/15/16 22:00 22:30 23:00 Temperature 101.5 F 101.6 F 101.5 F Pulse Rate Respiratory 12 13 12 Rate Blood Pressure 115/83 117/89 109/76 (mmHg) O2 Sat by Pulse 93 92 92 Oximetry 04/15/16 04/15/16 04/16/16 23:30 23:48 00:00 Temperature 101.6 F 101.6 F Pulse Rate 125 Respiratory 16 16 13 Rate Blood Pressure 125/84 (mmHg) O2 Sat by Pulse 93 92 Oximetry 04/16/16 04/16/16 04/16/16 00:01 00:09 00:21 Temperature 101.6 F 101.5 F Pulse Rate 129 Respiratory 18 15 14 Rate Blood Pressure 144/82 (mmHg) O2 Sat by Pulse 94 93 Oximetry 04/16/16 04/16/16 04/16/16 00:30 01:00 01:30 Temperature 101.4 F 101.4 F 101.2 F Pulse Rate Respiratory 14 9 15 Rate Blood Pressure 127/95 112/88 120/90 (mmHg) O2 Sat by Pulse 92 93 94 Oximetry 04/16/16 04/16/16 04/16/16 02:00 02:30 03:00 Temperature 100.9 F 100.8 F 100.6 F Pulse Rate Respiratory 10 13 15 Rate Blood Pressure 128/86 105/90 135/87 (mmHg) O2 Sat by Pulse 94 96 94 Oximetry 04/16/16 04/16/16 04/16/16 03:45 04:00 04:01 Temperature 100.3 F Pulse Rate Respiratory 16 12 16 Rate Blood Pressure 138/79 (mmHg) O2 Sat by Pulse 93 Oximetry 04/16/16 04/16/16 04/16/16 04:30 04:31 05:00 Temperature 100.3 F Pulse Rate Respiratory 18 18 9 Rate Blood Pressure 123/88 (mmHg) O2 Sat by Pulse 94 Oximetry 04/16/16 04/16/16 04/16/16 05:47 05:59 06:00 Temperature 100.4 F Pulse Rate Respiratory 16 14 10 Rate Blood Pressure 123/95 (mmHg) O2 Sat by Pulse 95 Oximetry 04/16/16 04/16/16 04/16/16 07:00 07:28 08:00 Temperature 100.2 F 99.9 F Pulse Rate 109 122 Respiratory 9 18 Rate Blood Pressure 112/92 147/94 (mmHg) O2 Sat by Pulse 95 94 93 Oximetry 04/16/16 08:20 Temperature Pulse Rate Respiratory 14 Rate Blood Pressure (mmHg) O2 Sat by Pulse Oximetry Oxygen Devices in Use Now: Nasal Cannula Appearance: Middle-aged, M, laying in bed, lethargic Eyes: No Scleral Icterus Ears/Nose/Mouth/Throat: - - Dry MM Neck: NL Appearance and Movements; NL JVP Respiratory: Symmetrical Chest Expansion and Respiratory Effort, - - diminshed in bases Cardiovascular: NL Sounds; No Murmurs; No JVD, - - Tachycardia Abdominal: - - Soft, distended, non-tender, BS hypoactive Lymphatic: No Cervical Adenopathy Extremities: - - Some abdominal edema, not much in LEs Skin: No Rash or Ulcers Neurological: - - Lethargic, no focal deficits Result Diagrams: 04/16/16 06:15 04/16/16 06:15 Microbiology and Other Data: Microbiology 04/14/16 12:00 Nasal Screen MRSA (PCR)(ALEENA) - Final Nasal Mrsa Negative Assess/Plan/Problems-Billing Assessment: Severe acute pancreatitis with necrosis, lactic acidosis, LUPIS, transaminitis in a 45 yo M with hx of EtOH abuse and HTN - Patient Problems (1) Acute pancreatic necrosis Current Visit: Yes Comment: Appreciate, ICU and GI assistance. Continue IVF at 200 cc/hr, changed to NS with resolution of acidosis and hyperglycemia. Started on regular insulin sliding scale. LFTs trending down. Continue Meropenem. HR slowly improving. Consider post-pyloric (N-J) DHT at some point in the next few days. CT abd/pelvis with contrast once renal function returns to baseline. (2) Alcohol withdrawal Current Visit: Yes Comment: Continue ativan taper and prn as per protocol. Still requiring significant doses of Ativan. (3) LUPIS (acute kidney injury) Current Visit: Yes Comment: Renal function improving, continue aggressive fluid repletion. FeNa c/w pre-renal. (4) Metabolic acidosis Current Visit: Yes Comment: Resolved, stopped bicarb (5) HTN (hypertension) Current Visit: No Comment: Holding home medications. (6) Electrolyte abnormality Current Visit: Yes Comment: Monitor K, Mg, Ph. Replete as needed. (7) DVT prophylaxis Current Visit: No Comment: HSQ
[2016-04-16 11:00] LABS: Magnesium 2.2 mg/dL (1.9-2.7); Phosphorus 2.4 mg/dL (2.5-5.0)
[2016-04-16] MEDS: Thiamine TAB* 100 MG TAB PO SCH (21:31)
[2016-04-16] MEDS: Folic Acid TAB* 1 MG PO SCH (21:31)
[2016-04-16] MEDS: Multivitamins/Minerals TAB PO SCH (21:31)
[2016-04-17] MEDS: NS 0.9% 1000 ML* 1,000 ML IV SCH ×4 (00:54→21:43)
[2016-04-17] MEDS: LORazepam INJ* 2 MG/ML 1 ML VIAL IV SCH ×7 (01:54→23:28)
[2016-04-17] MEDS: HYDROmorphone INJ* 2 MG/ML CARPUJECT SYRINGE IV SLOW PU PRN (02:41)
[2016-04-17] MEDS: Heparin VIAL(*) 5000 UNITS/ML VIAL (FIVE THOUSAND) SUBCUT SCH ×3 (05:41→21:27)
[2016-04-17] MEDS: Insulin REGULAR(*) 1 UNITS UNIT SUBCUT SCH ×4 (06:06→23:23)
[2016-04-17 06:39] LABS: Hematocrit 30 % (42-52); Hemoglobin 10.7 g/dl (14.0-18.0); Mean Corpuscular HGB Conc 35 g/dl (31-36); Mean Corpuscular Hemoglobin 34 pg (27-31); Mean Corpuscular Volume 97 fL (80-94); Mean Platelet Volume 9 um3 (7.4-10.4); Red Blood Count 3.13 10^6/ul (4.0-5.4); Red Cell Distribution Width 13 % (10.5-15); White Blood Count 10.8 10^3/ul (3.5-10.8)
[2016-04-17 06:40] LABS: Add Diff/Slide Review? Slide Review Added; Comments Flag Yes
[2016-04-17 06:41] LABS: ALT 28 U/L (7-52); Albumin 2.5 g/dL (3.2-5.2); Alkaline Phosphatase 66 U/L (34-104); BUN/Creatinine Ratio 21.4 (8-20); Blood Urea Nitrogen 21 mg/dL (6-24); CO2 Carbon Dioxide 30 mmol/L (22-32); Chloride 108 mmol/L (101-111); EGFR African American 105.4 (>60); Globulin 2.8 g/dL (2-4); Glucose 145 mg/dL (70-100); Sodium 144 mmol/L (133-145); Total Protein 5.3 g/dL (6.4-8.9)
[2016-04-17] MEDS: Meropenem 500MG PREMIX(*) 500 MG/50 ML BAG IV SCH ×3 (08:59→23:27)
--- NOTE | 2016-04-17 09:51 | PN ---
Subjective Date of Service: 04/17/16 Interval History: Seen with and mother at bedside They feel he is more verbal today but remains confused Pt rates abdominal pain as 8/10 in severity Still confused, thinks his is his uncle. Family History: Unchanged from Admission Social History: Unchanged from Admission Past Medical History: Unchanged from Admission Objective Active Medications: Acetaminophen (Tylenol Adult Liq*) 650 mg PO Q4H PRN PRN Reason: PAIN Last Admin: 04/16/16 04:04 Dose: 650 mg Heparin Sodium (Porcine) (Heparin Vial(*)) 5,000 units SUBCUT Q8HR [facility] Last Admin: 04/17/16 05:41 Dose: 5,000 units Heparin Sodium (Porcine) (Heparin Flush Picc/Ml/Cvc(*)) 1 - 3 ml FLUSH 0600, 1800 [facility] PRN Reason: Protocol Last Admin: 04/17/16 05:44 Dose: 2 ml Hydromorphone HCl (Dilaudid Iv*) 2 mg IV SLOW PU Q4H PRN PRN Reason: PAIN Last Admin: 04/17/16 02:41 Dose: 2 mg Meropenem (Merrem 500mg Premix(*)) 500 mg in 50 mls @ 100 mls/hr IV Q8H [facility] Last Admin: 04/17/16 08:59 Dose: 100 mls/hr Sodium Chloride (Ns 0.9% 1000 Ml*) 1,000 mls @ 200 mls/hr IV PER RATE [facility] Last Admin: 04/17/16 05:42 Dose: 200 mls/hr Potassium Chloride (Potassium Chloride 20 Meq/100 Ml Ivpremix*) 20 meq in 100 mls @ 50 mls/hr IV Q2H [facility] Stop: 04/17/16 13:59 Insulin Human Regular (Insulin Regular(*)) 0 - 8 units SUBCUT FS Q6 ICU [facility] PRN Reason: Protocol Last Admin: 04/17/16 06:06 Dose: 2 units Lactulose (Lactulose*) 30 ml PO TID [facility] Last Admin: 04/17/16 04:27 Dose: 30 ml Lorazepam (Ativan Inj*) 0 mg IV .PER WAM SCORE [facility] PRN Reason: Protocol Last Admin: 04/17/16 08:36 Dose: 4 mg Ondansetron HCl (Zofran Inj*) 4 mg IV Q4H PRN PRN Reason: NAUSEA Last Admin: 04/16/16 00:00 Dose: 4 mg Pantoprazole Sodium (Protonix Iv*) 40 mg IV Q24H [facility] Last Admin: 04/16/16 08:48 Dose: 40 mg Vital Signs 04/16/16 04/16/16 04/16/16 10:00 10:22 11:00 Temperature 100.1 F 100.3 F Pulse Rate 116 121 Respiratory 11 11 15 Rate Blood Pressure 144/96 134/85 (mmHg) O2 Sat by Pulse 92 92 Oximetry 04/16/16 04/16/16 04/16/16 11:14 11:37 12:00 Temperature 100.7 F Pulse Rate 127 Respiratory 13 13 17 Rate Blood Pressure 137/98 (mmHg) O2 Sat by Pulse 93 Oximetry 04/16/16 04/16/16 04/16/16 12:55 13:00 14:00 Temperature 101.3 F 101.1 F Pulse Rate 127 131 Respiratory 17 19 25 Rate Blood Pressure 140/87 154/76 (mmHg) O2 Sat by Pulse 92 93 Oximetry 04/16/16 04/16/16 04/16/16 15:00 15:02 15:56 Temperature 101.4 F 101.6 F Pulse Rate 128 132 Respiratory 12 15 19 Rate Blood Pressure 148/124 150/86 (mmHg) O2 Sat by Pulse 95 86 Oximetry 04/16/16 04/16/16 04/16/16 16:00 16:21 16:22 Temperature 101.7 F Pulse Rate 138 Respiratory 18 12 12 Rate Blood Pressure (mmHg) O2 Sat by Pulse 93 Oximetry 04/16/16 04/16/16 04/16/16 17:00 18:00 18:51 Temperature 101.6 F 101.6 F Pulse Rate 127 125 Respiratory 17 22 20 Rate Blood Pressure 157/97 143/85 (mmHg) O2 Sat by Pulse 93 93 Oximetry 04/16/16 04/16/16 04/16/16 19:00 19:36 19:37 Temperature 101.5 F Pulse Rate Respiratory 27 22 22 Rate Blood Pressure 146/87 (mmHg) O2 Sat by Pulse 93 Oximetry 04/16/16 04/16/16 04/16/16 19:58 19:59 20:17 Temperature 101.5 F Pulse Rate Respiratory 22 14 Rate Blood Pressure (mmHg) O2 Sat by Pulse 92 93 Oximetry 04/16/16 04/16/16 04/16/16 21:00 22:00 22:57 Temperature 100.7 F 100.3 F Pulse Rate Respiratory 12 25 22 Rate Blood Pressure 153/96 (mmHg) O2 Sat by Pulse 94 95 Oximetry 04/16/16 04/16/16 04/16/16 23:00 23:33 23:37 Temperature 100.6 F 100.5 F Pulse Rate Respiratory 21 16 13 Rate Blood Pressure 154/88 163/105 (mmHg) O2 Sat by Pulse 92 96 Oximetry 04/16/16 04/16/16 04/17/16 23:40 23:46 00:00 Temperature 100.5 F 100.4 F Pulse Rate Respiratory 17 16 17 Rate Blood Pressure 154/101 (mmHg) O2 Sat by Pulse 96 96 Oximetry 04/17/16 04/17/16 04/17/16 00:01 00:11 00:36 Temperature 100.4 F 100.3 F 100.2 F Pulse Rate Respiratory 17 9 15 Rate Blood Pressure 160/107 153/96 (mmHg) O2 Sat by Pulse 98 96 96 Oximetry 04/17/16 04/17/16 04/17/16 01:00 01:41 01:54 Temperature 100.3 F 100.3 F Pulse Rate Respiratory 19 18 16 Rate Blood Pressure 149/102 (mmHg) O2 Sat by Pulse 99 97 Oximetry 04/17/16 04/17/16 04/17/16 02:00 02:41 03:00 Temperature 100.4 F 100.4 F Pulse Rate Respiratory 17 16 11 Rate Blood Pressure 128/84 149/101 (mmHg) O2 Sat by Pulse 96 98 Oximetry 04/17/16 04/17/16 04/17/16 03:09 04:00 04:04 Temperature 99.9 F 99.9 F Pulse Rate Respiratory 12 16 Rate Blood Pressure 128/84 153/101 (mmHg) O2 Sat by Pulse 96 97 Oximetry 04/17/16 04/17/16 04/17/16 04:28 05:00 05:57 Temperature 100.1 F Pulse Rate Respiratory 18 14 16 Rate Blood Pressure 142/109 (mmHg) O2 Sat by Pulse 96 Oximetry 04/17/16 04/17/16 04/17/16 06:00 06:06 07:00 Temperature 100.0 F 100.0 F Pulse Rate 110 Respiratory 17 18 17 Rate Blood Pressure 149/106 (mmHg) O2 Sat by Pulse 97 98 Oximetry 04/17/16 04/17/16 04/17/16 08:00 08:16 08:36 Temperature 100.0 F Pulse Rate 120 Respiratory 24 16 21 Rate Blood Pressure (mmHg) O2 Sat by Pulse 95 Oximetry 04/17/16 04/17/16 04/17/16 09:00 09:05 09:34 Temperature 100.1 F 100.1 F Pulse Rate 113 111 Respiratory 19 18 16 Rate Blood Pressure 154/99 (mmHg) O2 Sat by Pulse 95 96 Oximetry Oxygen Devices in Use Now: Nasal Cannula Appearance: 30 deg in bed, interactive, NAD Eyes: PERRLA, - - trace scleral icterus Neck: NL Appearance and Movements; NL JVP, Trachea Midline Respiratory: Symmetrical Chest Expansion and Respiratory Effort, - - decreased in bases b/l Cardiovascular: - - tachy, tegular, no mrg Abdominal: - - distened, no TTP, no rebound/guarding Extremities: - - trace LE edema Skin: No Rash or Ulcers Neurological: - - AOx1 to self, thinks he is in [place], thinks his mother and are his uncles, moves all extremities, minimal tremor Result Diagrams: 04/17/16 05:54 04/17/16 06:59 Microbiology and Other Data: Microbiology 04/14/16 12:00 Nasal Screen MRSA (PCR)(ALEENA) - Final Nasal Mrsa Negative Assess/Plan/Problems-Billing Assessment: 45 yo M with hx of active EtOH abuse and HTN p/w severe acute pancreatitis with necrosis based on CT, lactic acidosis, LUPIS, transaminitis - Patient Problems (1) Acute pancreatic necrosis Comment: Continue IVF at 200 cc/hr Dilaudid for pain control. Remains NPO. Doubt [place] tube would stay in place with current lvl of aggitation from etoh withdrawal. C/w regular insulin sliding scale. Pancreatic necrosis now on Meropenem day 3 (not clear there was ever concern for infected necrosis) Plan on repeat CT abd/pelvis with contrast tomorrow (2) Alcohol withdrawal Comment: WAM with ativan protocol Reportedly drinking at least 12 beers/day in addition to unknown quantity of vodka (3) Transaminitis Comment: In distribution of alcoholic hepatitis which also fits clinical picture continue to trend (4) LUPIS (acute kidney injury) Comment: Renal function improving, continue aggressive fluid repletion (5) Metabolic acidosis Comment: Resolved, stopped bicarb (6) DVT prophylaxis Comment: HSQ
[2016-04-17] MEDS: Pantoprazole IV* 40 MG IV SCH (11:25)
[2016-04-17] MEDS: KCL 20 MEQ/100 ML IVPREMIX* 20 MEQ/100 ML BAG IV SCH ×2 (11:25→14:14)
[2016-04-18] MEDS: Acetaminophen ADULT LIQ* 650 MG/20.3 ML UDC PO PRN ×3 (00:31→16:28)
[2016-04-18] MEDS: HYDROmorphone INJ* 2 MG/ML CARPUJECT SYRINGE IV SLOW PU PRN ×5 (00:45→20:37)
[2016-04-18] MEDS: LORazepam INJ* 2 MG/ML 1 ML VIAL IV SCH ×7 (03:22→23:50)
[2016-04-18] MEDS: NS 0.9% 1000 ML* 1,000 ML IV SCH ×3 (03:42→17:34)
[2016-04-18 05:51] LABS: Hematocrit 33 % (42-52); Hemoglobin 11.1 g/dl (14.0-18.0); Mean Corpuscular HGB Conc 34 g/dl (31-36); Mean Corpuscular Hemoglobin 34 pg (27-31); Mean Corpuscular Volume 98 fL (80-94); Mean Platelet Volume 9 um3 (7.4-10.4); Red Blood Count 3.31 10^6/ul (4.0-5.4); Red Cell Distribution Width 13 % (10.5-15); White Blood Count 10.8 10^3/ul (3.5-10.8)
[2016-04-18 05:53] LABS: Add Diff/Slide Review? Slide Review Added; Comments Flag Yes
[2016-04-18] MEDS: Heparin VIAL(*) 5000 UNITS/ML VIAL (FIVE THOUSAND) SUBCUT SCH ×3 (05:56→20:40)
[2016-04-18] MEDS: Insulin REGULAR(*) 1 UNITS UNIT SUBCUT SCH ×4 (05:57→23:53)
[2016-04-18 06:12] LABS: Albumin 2.4 g/dL (3.2-5.2); BUN/Creatinine Ratio 21.3 (8-20); Calcium 7.5 mg/dL (8.6-10.3); Direct Bilirubin 0.5 mg/dL (0.03-0.18); EGFR African American 143.6 (>60); EGFR Non-African American 111.6 (>60); Globulin 2.7 g/dL (2-4); Indirect Bilirubin 0.9 mg/dL (0.3-1.0); Potassium 2.9 mmol/L (3.5-5.0); Total Bilirubin 1.4 mg/dL (0.2-1.0); Total Protein 5.1 g/dL (6.4-8.9)
[2016-04-18] MEDS: Meropenem 500MG PREMIX(*) 500 MG/50 ML BAG IV SCH (08:11)
[2016-04-18] MEDS: Pantoprazole IV* 40 MG IV SCH (08:56)
[2016-04-18] MEDS: KCL 10 MEQ/50 ML IVPREMIX* 10 MEQ/50 ML BAG IV SCH ×3 (10:43→13:46)
--- NOTE | 2016-04-18 10:50 | PN ---
Subjective Date of Service: 04/18/16 Interval History: Seen and examined with and mother at bedside Endorses abdominal pain States "I want a beer" + BMs noted that are not recorded in I/Os Family History: Unchanged from Admission Social History: Unchanged from Admission Past Medical History: Unchanged from Admission Objective Active Medications: Acetaminophen (Tylenol Adult Liq*) 650 mg PO Q4H PRN PRN Reason: PAIN Last Admin: 04/18/16 09:07 Dose: 650 mg Heparin Sodium (Porcine) (Heparin Vial(*)) 5,000 units SUBCUT Q8HR [facility] Last Admin: 04/18/16 05:56 Dose: 5,000 units Heparin Sodium (Porcine) (Heparin Flush Picc/Ml/Cvc(*)) 1 - 3 ml FLUSH 0600, 1800 [facility] PRN Reason: Protocol Last Admin: 04/18/16 05:52 Dose: 2 ml Hydromorphone HCl (Dilaudid Iv*) 2 mg IV SLOW PU Q4H PRN PRN Reason: PAIN Last Admin: 04/18/16 05:58 Dose: 2 mg Sodium Chloride (Ns 0.9% 1000 Ml*) 1,000 mls @ 200 mls/hr IV PER RATE [facility] Last Admin: 04/18/16 09:03 Dose: 200 mls/hr Potassium Chloride (Potassium Chloride 10 Meq/50 Ml Ivpremix*) 10 meq in 50 mls @ 50 mls/hr IV Q1H [facility] Stop: 04/18/16 13:59 Insulin Human Regular (Insulin Regular(*)) 0 - 8 units SUBCUT FS Q6 ICU [facility] PRN Reason: Protocol Last Admin: 04/18/16 05:57 Dose: 2 units Lactulose (Lactulose*) 30 ml PO TID [facility] Lorazepam (Ativan Inj*) 0 mg IV .PER WAM SCORE [facility] PRN Reason: Protocol Ondansetron HCl (Zofran Inj*) 4 mg IV Q4H PRN PRN Reason: NAUSEA Last Admin: 04/16/16 00:00 Dose: 4 mg Pantoprazole Sodium (Protonix Iv*) 40 mg IV Q24H [facility] Last Admin: 04/18/16 08:56 Dose: 40 mg Vital Signs 04/17/16 04/17/16 04/17/16 11:00 11:27 12:00 Temperature 100.0 F 100.1 F Pulse Rate 113 112 Respiratory 20 16 19 Rate Blood Pressure 157/98 135/83 (mmHg) O2 Sat by Pulse 95 97 Oximetry 04/17/16 04/17/16 04/17/16 12:30 12:33 13:00 Temperature 99.9 F Pulse Rate 111 Respiratory 22 18 18 Rate Blood Pressure (mmHg) O2 Sat by Pulse 94 Oximetry 04/17/16 04/17/16 04/17/16 13:02 13:48 14:00 Temperature 100.1 F 100.2 F Pulse Rate 113 112 Respiratory 21 26 22 Rate Blood Pressure 156/101 144/77 (mmHg) O2 Sat by Pulse 94 96 Oximetry 04/17/16 04/17/16 04/17/16 14:06 15:00 16:00 Temperature 100.3 F 100.5 F Pulse Rate 115 114 Respiratory 20 28 26 Rate Blood Pressure 155/100 153/94 (mmHg) O2 Sat by Pulse 96 96 Oximetry 04/17/16 04/17/16 04/17/16 16:51 17:00 18:00 Temperature 100.6 F 100.7 F Pulse Rate 114 112 Respiratory 22 22 22 Rate Blood Pressure 148/91 166/102 (mmHg) O2 Sat by Pulse 95 96 Oximetry 04/17/16 04/17/16 04/17/16 19:00 19:02 20:00 Temperature 100.9 F 101.2 F Pulse Rate 119 112 Respiratory 20 22 18 Rate Blood Pressure 152/104 (mmHg) O2 Sat by Pulse 97 96 Oximetry 04/17/16 04/17/16 04/17/16 21:00 21:31 22:00 Temperature 101.0 F 101.2 F Pulse Rate 110 116 Respiratory 22 19 18 Rate Blood Pressure 144/97 (mmHg) O2 Sat by Pulse 97 99 Oximetry 04/17/16 04/17/16 04/17/16 22:01 23:00 23:14 Temperature 101.2 F 101.3 F 101.4 F Pulse Rate 112 109 114 Respiratory 20 25 22 Rate Blood Pressure 153/102 140/96 (mmHg) O2 Sat by Pulse 98 97 98 Oximetry 04/17/16 04/18/16 04/18/16 23:28 00:00 00:02 Temperature 101.4 F 101.4 F Pulse Rate 110 114 Respiratory 25 22 18 Rate Blood Pressure 129/83 (mmHg) O2 Sat by Pulse 97 98 Oximetry 04/18/16 04/18/16 04/18/16 00:45 01:00 01:44 Temperature 101.4 F Pulse Rate 102 Respiratory 22 13 Rate Blood Pressure 134/72 (mmHg) O2 Sat by Pulse 96 98 Oximetry 04/18/16 04/18/16 04/18/16 02:00 02:11 03:00 Temperature 101.0 F 100.9 F 100.6 F Pulse Rate 95 98 110 Respiratory 9 9 15 Rate Blood Pressure 115/91 125/78 (mmHg) O2 Sat by Pulse 96 97 99 Oximetry 04/18/16 04/18/16 04/18/16 03:22 04:00 04:15 Temperature 99.9 F 99.8 F Pulse Rate 106 101 Respiratory 19 14 17 Rate Blood Pressure 153/101 150/92 (mmHg) O2 Sat by Pulse 97 94 Oximetry 04/18/16 04/18/16 04/18/16 05:00 05:54 05:58 Temperature 99.9 F Pulse Rate 109 Respiratory 22 24 21 Rate Blood Pressure 145/98 (mmHg) O2 Sat by Pulse 94 Oximetry 04/18/16 04/18/16 04/18/16 06:00 07:00 08:00 Temperature 99.5 F 99.3 F Pulse Rate 95 94 Respiratory 10 8 10 Rate Blood Pressure 136/92 (mmHg) O2 Sat by Pulse 96 97 Oximetry 04/18/16 04/18/16 09:00 10:00 Temperature 99.2 F 99.3 F Pulse Rate 93 107 Respiratory 9 18 Rate Blood Pressure (mmHg) O2 Sat by Pulse 95 97 Oximetry Oxygen Devices in Use Now: Nasal Cannula Appearance: lying 30 deg, NAD Eyes: No Scleral Icterus, PERRLA Ears/Nose/Mouth/Throat: Clear Oropharnyx, Mucous Membranes Moist, - Neck: NL Appearance and Movements; NL JVP, Trachea Midline Respiratory: Symmetrical Chest Expansion and Respiratory Effort, Clear to Auscultation, - - decreased in bases Cardiovascular: NL Sounds; No Murmurs; No JVD, - - tachy Abdominal: - - distended, mild TTP, +bs. no rebound/guarding Neurological: - - knows name and year, thinks he is in a boat, can name and mother today improved from yesterday. No tremor/asterixis Result Diagrams: 04/18/16 05:35 04/18/16 05:35 Microbiology and Other Data: Microbiology 04/14/16 12:00 Nasal Screen MRSA (PCR)([facility]) - Final Nasal Mrsa Negative Assess/Plan/Problems-Billing Assessment: 45 yo M with hx of active EtOH abuse and HTN p/w severe acute pancreatitis with necrosis based on CT, lactic acidosis, LUPIS, transaminitis - Patient Problems (1) Acute pancreatic necrosis Comment: Continue IVF at 200 cc/hr Dilaudid for pain control. Remains NPO. Doubt [place] tube would stay in place with current lvl of aggitation from etoh withdrawal. C/w regular insulin sliding scale. Pancreatic necrosis now on s/p Meropenem x 3 days (not clear there was ever concern for infected necrosis) - discontinued abx 04/18/[address] abd/pelvis with contrast - hold now 2/2 concern for renal injury and in setting of improving pancreatitis symptoms (2) Alcohol withdrawal Comment: WAM with ativan protocol - decrease dosing given with WAM protocol Reportedly drinking at least 12 beers/day in addition to unknown quantity of vodka (3) Transaminitis Comment: In distribution of alcoholic hepatitis which also fits clinical picture continue to trend QOD (4) LUPIS (acute kidney injury) Comment: Renal function improving, continue aggressive fluid repletion (5) Metabolic acidosis Comment: Resolved, stopped bicarb (6) DVT prophylaxis Comment: HSQ
[2016-04-18] MEDS ORDERED: LORazepam INJ* 2 MG/ML 1 ML VIAL IV ONE (22:56)
[2016-04-19] MEDS: Ondansetron INJ* 2 MG/ML VIAL IV PRN ×3 (00:34→12:34)
[2016-04-19] MEDS: LORazepam INJ* 2 MG/ML 1 ML VIAL IV SCH ×10 (01:29→22:26)
[2016-04-19] MEDS: Acetaminophen ADULT LIQ* 650 MG/20.3 ML UDC PO PRN (03:25)
[2016-04-19] MEDS: NS 0.9% 1000 ML* 1,000 ML IV SCH (04:56)
[2016-04-19 05:03] LABS: Hematocrit 32 % (42-52); Hemoglobin 10.6 g/dl (14.0-18.0); Mean Corpuscular HGB Conc 33 g/dl (31-36); Mean Corpuscular Hemoglobin 33 pg (27-31); Mean Corpuscular Volume 99 fL (80-94); Mean Platelet Volume 8 um3 (7.4-10.4); Red Cell Distribution Width 14 % (10.5-15)
[2016-04-19 05:04] LABS: Add Diff/Slide Review? Slide Review Added; Comments Flag Yes
[2016-04-19 05:20] LABS: BUN/Creatinine Ratio 16.4 (8-20); Calcium 7.5 mg/dL (8.6-10.3); EGFR African American 163.5 (>60); EGFR Non-African American 127.1 (>60); Potassium 2.6 mmol/L (3.5-5.0)
[2016-04-19 05:46] LABS: Immature Granulocytes 4 % (0-9); Metamyelocytes % 1 % (0-2); Myelocytes % 2 % (0-1); Neutrophil % 66 % (38-83)
[2016-04-19 05:47] LABS: RBC Morphology Normal (Normal)
[2016-04-19 05:48] LABS: Toxic Granulation 1+
[2016-04-19] MEDS: Insulin REGULAR(*) 1 UNITS UNIT SUBCUT SCH ×4 (05:59→23:59)
[2016-04-19] MEDS: KCL 20 MEQ/100 ML IVPREMIX* 20 MEQ/100 ML BAG IV SCH ×5 (06:02→22:26)
[2016-04-19] MEDS: Heparin VIAL(*) 5000 UNITS/ML VIAL (FIVE THOUSAND) SUBCUT SCH ×3 (06:05→22:26)
[2016-04-19] MEDS ORDERED: Potassium Chlor TAB* 20 MEQ TAB.ER PO ONE ×2 (08:24→17:16)
[2016-04-19] MEDS: Pantoprazole IV* 40 MG IV SCH (08:53)
[2016-04-19] MEDS ORDERED: Iohexol 300* (CONTRAST) 10 ML SDV IV ONE (13:57)
--- NOTE | 2016-04-19 15:11 | RAD ---
CLINICAL HISTORY: Pancreatic necrosis COMPARISON: April 13, 2016 TECHNIQUE: Multiple contiguous axial CT scans were obtained of the abdomen and pelvis after the administration of intravenous contrast. Coronal and sagittal multiplanar reformations are submitted for review. Oral contrast was administered. Delayed images were obtained through the abdomen FINDINGS: The study is limited by patient motion artifact. LUNG BASES: There are moderate bilateral pleural effusions with bibasilar atelectasis. LIVER: The liver is diffusely low in attenuation compared to the spleen. There are no focal hepatic parenchymal masses. BILE DUCTS: There is no intrahepatic or extrahepatic biliary dilatation. GALLBLADDER: The gallbladder is normal, without pericholecystic inflammatory change. PANCREAS: The pancreas is diffusely edematous with stranding of the peripancreatic fat. There are no loculated fluid collections. There is fluid tracking along the anterior pararenal fascia on the left. The portal vein and splenic arteries are patent. SPLEEN: Normal in size and appearance. UPPER GI TRACT: Evaluation of the gastrointestinal tract is limited by incomplete gastric distention. The upper GI tract is unremarkable. SMALL BOWEL AND MESENTERY: There is mild distention of the small bowel without transition point. COLON: The colon is normal in contour, course, caliber. There is no pericolonic inflammatory change. ADRENALS: Normal bilaterally. KIDNEYS: The kidneys are normal in shape, size, contour, and axis. There is no hydronephrosis or nephrolithiasis. BLADDER: The bladder is collapsed rounded Hendrix catheter. PELVIC ORGANS: The prostate gland is normal. The seminal vesicles are symmetric. AORTA: The aorta is normal. IVC: Unremarkable LYMPH NODES: There is no lymphadenopathy by size criteria. ABDOMINAL WALL: There is no evidence for abdominal wall hernia. BONES AND SOFT TISSUES: Mild degenerative changes are noted. There is diffuse subcutaneous edema. OTHER: None IMPRESSION: 1. PERIPANCREATIC INFLAMMATORY CHANGE AND EDEMA WITH FLUID TRACKING ALONG THE RETROPERITONEUM, CONSISTENT WITH HISTORY OF PANCREATITIS.. THERE IS NO LOCULATED FLUID COLLECTION. 2. BILATERAL PLEURAL EFFUSIONS WITH BIBASILAR ATELECTASIS. 3. FATTY INFILTRATION OF LIVER. 4. DIFFUSE SMALL BOWEL DISTENTION WITHOUT TRANSITION POINT SUGGESTIVE OF AN ILEUS PATTERN
[2016-04-19 16:48] LABS: BUN/Creatinine Ratio 13.2 (8-20); EGFR African American 160.7 (>60)
[2016-04-19 16:49] LABS: Potassium 2.7 mmol/L (3.5-5.0)
--- NOTE | 2016-04-19 17:50 | PN ---
Subjective Date of Service: 04/19/16 Interval History: Pain improved Feels thirsty Denies SOB, cough Endorses that he was drinking up to 12 beers daily in addition to vodka and whiskey Daughter and at bedside think his mental status is improved today Family History: Unchanged from Admission Social History: Unchanged from Admission Past Medical History: Unchanged from Admission Objective Active Medications: Acetaminophen (Tylenol Adult Liq*) 650 mg PO Q4H PRN PRN Reason: PAIN Last Admin: 04/19/16 03:25 Dose: 650 mg Heparin Sodium (Porcine) (Heparin Vial(*)) 5,000 units SUBCUT Q8HR [facility] Last Admin: 04/19/16 14:06 Dose: 5,000 units Heparin Sodium (Porcine) (Heparin Flush Picc/Ml/Cvc(*)) 1 - 3 ml FLUSH 0600, 1800 [facility] PRN Reason: Protocol Last Admin: 04/19/16 05:20 Dose: Not Given Hydromorphone HCl (Dilaudid Iv*) 2 mg IV SLOW PU Q4H PRN PRN Reason: PAIN Last Admin: 04/18/16 20:37 Dose: 2 mg Lactated Ringer's (Lactated Ringers 1000 Ml Bag*) 1,000 mls @ 100 mls/hr IV PER RATE [facility] Last Admin: 04/19/16 15:46 Dose: 100 mls/hr Potassium Chloride (Potassium Chloride 20 Meq/100 Ml Ivpremix*) 20 meq in 100 mls @ 50 mls/hr IV Q2H [facility] Stop: 04/19/16 23:59 Last Admin: 04/19/16 17:44 Dose: 50 mls/hr Insulin Human Regular (Insulin Regular(*)) 0 - 8 units SUBCUT FS Q6 ICU [facility] PRN Reason: Protocol Last Admin: 04/19/16 12:35 Dose: 2 units Lactulose (Lactulose*) 30 ml PO BID [facility] Lorazepam (Ativan Inj*) 0 mg IV .PER WAM SCORE [facility] PRN Reason: Protocol Last Admin: 04/19/16 17:42 Dose: 2 mg Ondansetron HCl (Zofran Inj*) 4 mg IV Q4H PRN PRN Reason: NAUSEA Last Admin: 04/19/16 12:34 Dose: 4 mg Pantoprazole Sodium (Protonix Iv*) 40 mg IV Q24H [facility] Last Admin: 04/19/16 08:53 Dose: 40 mg Vital Signs 04/18/16 04/18/16 04/18/16 18:00 19:00 20:00 Temperature 100.4 F 100.3 F 100.2 F Pulse Rate 107 114 108 Respiratory 8 19 20 Rate Blood Pressure 118/84 153/106 149/90 (mmHg) O2 Sat by Pulse 95 93 92 Oximetry 04/18/16 04/18/16 04/18/16 20:01 20:37 21:00 Temperature 100.3 F Pulse Rate 104 Respiratory 25 20 24 Rate Blood Pressure 140/76 (mmHg) O2 Sat by Pulse 90 Oximetry 04/18/16 04/18/16 04/18/16 21:50 22:00 23:00 Temperature 100.6 F 100.9 F Pulse Rate 113 118 Respiratory 21 18 22 Rate Blood Pressure 174/103 159/95 (mmHg) O2 Sat by Pulse 90 89 Oximetry 04/18/16 04/18/16 04/18/16 23:06 23:14 23:39 Temperature 101.0 F Pulse Rate Respiratory 23 23 27 Rate Blood Pressure (mmHg) O2 Sat by Pulse Oximetry 04/18/16 04/19/16 04/19/16 23:50 00:00 00:01 Temperature 101.1 F 101.1 F Pulse Rate 114 117 Respiratory 26 27 27 Rate Blood Pressure 165/127 (mmHg) O2 Sat by Pulse 95 95 Oximetry 04/19/16 04/19/16 04/19/16 00:54 01:00 01:29 Temperature 101.4 F 101.4 F Pulse Rate 118 112 Respiratory 26 20 27 Rate Blood Pressure 172/97 160/79 (mmHg) O2 Sat by Pulse 94 95 Oximetry 04/19/16 04/19/16 04/19/16 02:00 03:00 03:12 Temperature 101.4 F 101.7 F Pulse Rate 109 98 Respiratory 21 24 14 Rate Blood Pressure 171/91 145/77 (mmHg) O2 Sat by Pulse 96 96 Oximetry 04/19/16 04/19/16 04/19/16 03:41 04:00 04:25 Temperature 101.8 F Pulse Rate 101 Respiratory 18 25 Rate Blood Pressure 162/91 (mmHg) O2 Sat by Pulse 97 94 Oximetry 04/19/16 04/19/16 04/19/16 05:00 05:18 06:00 Temperature 101.2 F Pulse Rate 100 Respiratory 18 28 22 Rate Blood Pressure 130/86 127/90 (mmHg) O2 Sat by Pulse 97 Oximetry 04/19/16 04/19/16 04/19/16 06:54 07:00 07:05 Temperature 101.3 F 101.3 F Pulse Rate 84 102 Respiratory 19 24 26 Rate Blood Pressure 161/97 (mmHg) O2 Sat by Pulse 97 97 Oximetry 04/19/16 04/19/16 04/19/16 07:07 08:00 08:11 Temperature 101.0 F 101.1 F Pulse Rate 95 99 Respiratory 24 28 Rate Blood Pressure 172/89 149/86 (mmHg) O2 Sat by Pulse 91 91 Oximetry 04/19/16 04/19/16 04/19/16 09:00 09:47 10:00 Temperature 101.1 F 101.0 F Pulse Rate 90 89 Respiratory 30 27 30 Rate Blood Pressure 153/81 (mmHg) O2 Sat by Pulse 92 93 Oximetry 04/19/16 04/19/16 04/19/16 10:21 11:00 11:36 Temperature 101.0 F 100.8 F 100.9 F Pulse Rate 94 81 Respiratory 25 26 24 Rate Blood Pressure 147/85 147/76 157/77 (mmHg) O2 Sat by Pulse 94 96 Oximetry 04/19/16 04/19/16 04/19/16 12:00 13:00 14:00 Temperature 100.5 F 100.8 F Pulse Rate 81 95 Respiratory 23 19 27 Rate Blood Pressure 149/65 (mmHg) O2 Sat by Pulse 97 96 Oximetry 04/19/16 04/19/16 04/19/16 14:02 15:00 15:45 Temperature 100.8 F 100.7 F Pulse Rate 84 89 Respiratory 28 32 32 Rate Blood Pressure 151/84 121/98 (mmHg) O2 Sat by Pulse 96 92 Oximetry 04/19/16 17:42 Temperature Pulse Rate Respiratory 26 Rate Blood Pressure (mmHg) O2 Sat by Pulse Oximetry Oxygen Devices in Use Now: Nasal Cannula Appearance: NAD Eyes: No Scleral Icterus, PERRLA Ears/Nose/Mouth/Throat: Clear Oropharnyx, Mucous Membranes Moist Neck: NL Appearance and Movements; NL JVP, Trachea Midline Respiratory: Symmetrical Chest Expansion and Respiratory Effort, - - decreased in bases Cardiovascular: NL Sounds; No Murmurs; No JVD, RRR Abdominal: - - tympanic, very mild TTP, distended, +bs Lymphatic: No Cervical Adenopathy Extremities: - - 1+ le edema and 2+ scrotal edema Neurological: Alert and Oriented x 3, - - no tremor or astirixus Result Diagrams: 04/19/16 04:43 04/19/16 16:10 Microbiology and Other Data: Microbiology 04/14/16 12:00 Nasal Screen MRSA (PCR)([facility]) - Final Nasal Mrsa Negative Assess/Plan/Problems-Billing Assessment: 45 yo M with hx of active EtOH abuse and HTN p/w severe acute pancreatitis with necrosis based on CT, lactic acidosis, LUPIS, transaminitis - Patient Problems (1) Acute pancreatic necrosis Comment: decrease IVF to 100 cc/hr Change NS to LR in setting of hypernatremia Dilaudid for pain control. Remains NPO. Doubt NJ tube would stay in place with current lvl of aggitation from etoh withdrawal. C/w regular insulin sliding scale. Pancreatic necrosis now on s/p Meropenem x 3 days (not clear there was ever concern for infected necrosis) - discontinued abx 04/18/[address] abd/pelvis with contrast - without e/o necrosis (2) Alcohol withdrawal Comment: WAM with ativan protocol - decrease dosing given with WAM protocol Reportedly drinking at least 12 beers/day in addition to unknown quantity of vodka (3) Transaminitis Comment: In distribution of alcoholic hepatitis which also fits clinical picture continue to trend QOD (4) LUPIS (acute kidney injury) Comment: Renal function improving, continue aggressive fluid repletion (5) Metabolic acidosis Comment: Resolved, stopped bicarb (6) Hypokalemia Comment: replete and trend (7) DVT prophylaxis Comment: HSQ
[2016-04-19] MEDS: HYDROmorphone INJ* 2 MG/ML CARPUJECT SYRINGE IV SLOW PU PRN (18:42)
[2016-04-20] MEDS: LORazepam INJ* 2 MG/ML 1 ML VIAL IV SCH ×5 (00:55→18:18)
[2016-04-20] MEDS: HYDROmorphone INJ* 2 MG/ML CARPUJECT SYRINGE IV SLOW PU PRN ×2 (04:07→18:45)
[2016-04-20 05:01] LABS: Hematocrit 30 % (42-52); Hemoglobin 10.1 g/dl (14.0-18.0); Mean Corpuscular HGB Conc 34 g/dl (31-36); Mean Corpuscular Hemoglobin 33 pg (27-31); Mean Corpuscular Volume 98 fL (80-94); Mean Platelet Volume 8 um3 (7.4-10.4); Red Blood Count 3.05 10^6/ul (4.0-5.4); Red Cell Distribution Width 14 % (10.5-15); White Blood Count 10.3 10^3/ul (3.5-10.8)
[2016-04-20 05:05] LABS: Add Diff/Slide Review? Slide Review Added; Comments Flag Yes
[2016-04-20 05:16] LABS: BUN/Creatinine Ratio 11.3 (8-20); Calcium 7.8 mg/dL (8.6-10.3); EGFR African American 178.8 (>60); EGFR Non-African American 139.1 (>60)
[2016-04-20 05:18] LABS: Potassium 2.7 mmol/L (3.5-5.0)
[2016-04-20] MEDS: Insulin REGULAR(*) 1 UNITS UNIT SUBCUT SCH ×3 (05:34→19:17)
[2016-04-20] MEDS: Heparin VIAL(*) 5000 UNITS/ML VIAL (FIVE THOUSAND) SUBCUT SCH ×3 (05:38→22:23)
[2016-04-20] MEDS: KCL 20 MEQ/100 ML IVPREMIX* 20 MEQ/100 ML BAG IV SCH ×2 (05:38→09:08)
[2016-04-20] MEDS: NS 0.45% 1000 ML BAG* 1,000 ML IV SCH ×2 (09:08→17:49)
[2016-04-20] MEDS: Pantoprazole IV* 40 MG IV SCH (09:08)
[2016-04-20] MEDS: Potassium Chlor TAB* 20 MEQ TAB.ER PO SCH ×3 (09:08→13:57)
--- NOTE | 2016-04-20 17:51 | PN ---
Subjective Date of Service: 04/20/16 Interval History: Seen and examined with and mother at bedside They think he is more lucid today Pt is denying any pain but is asking for alcohol Family History: Unchanged from Admission Social History: Unchanged from Admission Past Medical History: Unchanged from Admission Objective Active Medications: Acetaminophen (Tylenol Adult Liq*) 650 mg PO Q4H PRN PRN Reason: PAIN Last Admin: 04/19/16 03:25 Dose: 650 mg Heparin Sodium (Porcine) (Heparin Vial(*)) 5,000 units SUBCUT Q8HR [facility] Last Admin: 04/20/16 13:56 Dose: 5,000 units Hydromorphone HCl (Dilaudid Iv*) 2 mg IV SLOW PU Q4H PRN PRN Reason: PAIN Last Admin: 04/20/16 04:07 Dose: 2 mg Sodium Chloride (Ns 0.45% 1000 Ml Bag*) 1,000 mls @ 125 mls/hr IV PER RATE [facility] Last Admin: 04/20/16 09:08 Dose: 125 mls/hr Insulin Human Regular (Insulin Regular(*)) 0 - 8 units SUBCUT FS Q6 ICU [facility] PRN Reason: Protocol Last Admin: 04/20/16 13:57 Dose: Not Given Lorazepam (Ativan Inj*) 0 mg IV .PER WAM SCORE [facility] PRN Reason: Protocol Last Admin: 04/20/16 13:56 Dose: 1 mg Ondansetron HCl (Zofran Inj*) 4 mg IV Q4H PRN PRN Reason: NAUSEA Last Admin: 04/19/16 12:34 Dose: 4 mg Pantoprazole Sodium (Protonix Iv*) 40 mg IV Q24H [facility] Last Admin: 04/20/16 09:08 Dose: 40 mg Vital Signs 04/19/16 04/19/16 04/19/16 18:00 18:42 19:00 Temperature 101.0 F Pulse Rate 101 90 Respiratory 31 18 Rate Blood Pressure 172/97 140/78 (mmHg) O2 Sat by Pulse 94 91 Oximetry 04/19/16 04/19/16 04/19/16 20:00 20:14 20:46 Temperature 100.3 F Pulse Rate 77 Respiratory 13 17 24 Rate Blood Pressure 130/89 (mmHg) O2 Sat by Pulse 93 Oximetry 04/19/16 04/19/16 04/19/16 20:56 21:00 21:29 Temperature 100.1 F Pulse Rate 87 Respiratory 19 15 15 Rate Blood Pressure 128/77 (mmHg) O2 Sat by Pulse 93 Oximetry 04/19/16 04/19/16 04/19/16 22:00 22:21 22:26 Temperature 100.2 F Pulse Rate Respiratory 20 16 26 Rate Blood Pressure (mmHg) O2 Sat by Pulse Oximetry 04/19/16 04/19/16 04/19/16 22:40 23:00 23:59 Temperature 100.2 F 100.2 F 100.1 F Pulse Rate 86 93 88 Respiratory 19 20 22 Rate Blood Pressure 159/90 128/97 (mmHg) O2 Sat by Pulse 96 94 97 Oximetry 04/20/16 04/20/16 04/20/16 00:00 00:01 00:48 Temperature 100.1 F Pulse Rate 85 Respiratory 15 23 15 Rate Blood Pressure (mmHg) O2 Sat by Pulse 95 Oximetry 04/20/16 04/20/16 04/20/16 00:55 01:00 01:01 Temperature 100.3 F 100.3 F Pulse Rate 101 102 Respiratory 24 21 20 Rate Blood Pressure 158/96 (mmHg) O2 Sat by Pulse 98 93 Oximetry 04/20/16 04/20/16 04/20/16 02:00 03:00 03:09 Temperature 100.4 F 100.4 F Pulse Rate 77 82 Respiratory 21 23 20 Rate Blood Pressure 148/85 182/75 (mmHg) O2 Sat by Pulse 96 96 Oximetry 04/20/16 04/20/16 04/20/16 03:46 04:00 04:07 Temperature Pulse Rate 79 Respiratory 20 28 25 Rate Blood Pressure (mmHg) O2 Sat by Pulse 96 Oximetry 04/20/16 04/20/16 04/20/16 04:11 04:23 05:00 Temperature 99.8 F Pulse Rate 88 Respiratory 17 16 17 Rate Blood Pressure 134/86 (mmHg) O2 Sat by Pulse 97 Oximetry 04/20/16 04/20/16 04/20/16 05:42 06:00 06:20 Temperature 98.9 F Pulse Rate 86 Respiratory 19 18 12 Rate Blood Pressure 128/94 (mmHg) O2 Sat by Pulse 97 Oximetry 04/20/16 04/20/16 04/20/16 07:00 08:00 09:00 Temperature 98.8 F 99.2 F 99.5 F Pulse Rate 84 80 83 Respiratory 17 14 21 Rate Blood Pressure 128/78 125/78 (mmHg) O2 Sat by Pulse 99 95 95 Oximetry 04/20/16 04/20/16 04/20/16 09:58 10:00 11:00 Temperature 99.5 F 99.5 F 99.9 F Pulse Rate 88 78 85 Respiratory 20 21 18 Rate Blood Pressure 121/71 110/71 (mmHg) O2 Sat by Pulse 92 96 94 Oximetry 04/20/16 04/20/16 04/20/16 12:00 12:07 13:00 Temperature 99.9 F 100.0 F 99.9 F Pulse Rate 95 92 85 Respiratory 21 20 22 Rate Blood Pressure 143/79 153/92 (mmHg) O2 Sat by Pulse 97 95 96 Oximetry 04/20/16 04/20/16 04/20/16 13:47 13:56 14:00 Temperature Pulse Rate Respiratory 24 24 24 Rate Blood Pressure (mmHg) O2 Sat by Pulse Oximetry 04/20/16 04/20/16 15:00 16:15 Temperature 98.5 F 98.5 F Pulse Rate 80 74 Respiratory 22 18 Rate Blood Pressure 152/81 155/87 (mmHg) O2 Sat by Pulse 98 98 Oximetry Oxygen Devices in Use Now: None Appearance: NAD, interactive today Eyes: No Scleral Icterus, PERRLA Ears/Nose/Mouth/Throat: Clear Oropharnyx, Mucous Membranes Moist Neck: NL Appearance and Movements; NL JVP, Trachea Midline Respiratory: Symmetrical Chest Expansion and Respiratory Effort, Clear to Auscultation Cardiovascular: NL Sounds; No Murmurs; No JVD, RRR Abdominal: NL Sounds; No Tenderness; No Distention, No Hepatosplenomegaly, - - + distention, +tympanic Lymphatic: No Cervical Adenopathy, No Axillary Adenopathy Extremities: - - no LE edema, +scrotal edema Neurological: - - AOx2 to self and [facility] but could not say this was a hospital nor why he was here. Result Diagrams: 04/20/16 04:49 04/20/16 04:49 Microbiology and Other Data: Microbiology 04/14/16 12:00 Nasal Screen MRSA (PCR)([facility]EE[facility]) - Final Nasal Mrsa Negative Assess/Plan/Problems-Billing Assessment: 45 yo M with hx of active EtOH abuse and HTN p/w severe acute pancreatitis with necrosis based on CT, lactic acidosis, LUPIS, transaminitis - Patient Problems (1) Acute pancreatic necrosis Comment: change fluids to 1/2NS Dilaudid for pain control. Advance diet to clears C/w regular insulin sliding scale. Pancreatic necrosis on presenting CT not evident on repeat 04/19/16 completed Meropenem x 3 days (not clear there was ever concern for infected necrosis) - discontinued abx 04/18/16 (2) Toxic metabolic encephalopathy Comment: Acute and present on admission 2/2 systemic illness from severe pancreatitis in combination with alcohol withdrawal. Improving with therapy for pancreatitis and etoh withdrawal (3) Alcohol withdrawal Comment: WAM with ativan protocol - decrease dosing given with WAM protocol Reportedly drinking at least 12 beers/day in addition to unknown quantity of vodka (4) Transaminitis Comment: In distribution of alcoholic hepatitis which also fits clinical picture continue to trend QOD (5) LUPIS (acute kidney injury) Comment: Renal function improving, (6) Metabolic acidosis Comment: Resolved, stopped bicarb (7) Hypokalemia Comment: replete and trend (8) DVT prophylaxis Comment: HSQ
[2016-04-20 18:30] LABS: BUN/Creatinine Ratio 10.3 (8-20); EGFR African American 160.7 (>60); Potassium 2.9 mmol/L (3.5-5.0)
[2016-04-21] MEDS: LORazepam INJ* 2 MG/ML 1 ML VIAL IV SCH ×5 (00:31→07:17)
[2016-04-21] MEDS: Acetaminophen ADULT LIQ* 650 MG/20.3 ML UDC PO PRN ×2 (00:38→23:42)
[2016-04-21] MEDS: Insulin REGULAR(*) 1 UNITS UNIT SUBCUT SCH ×3 (01:06→12:42)
[2016-04-21] MEDS: NS 0.45% 1000 ML BAG* 1,000 ML IV SCH (02:13)
[2016-04-21] MEDS ORDERED: Diphenoxylat/Atrop 2.5-0.025M* 1 TAB PO ONE (02:58)
[2016-04-21] MEDS ORDERED: Diphenoxylat/Atrop 2.5-0.025M* 1 TAB PO PRN (02:58)
[2016-04-21] MEDS: Heparin VIAL(*) 5000 UNITS/ML VIAL (FIVE THOUSAND) SUBCUT SCH ×3 (06:07→23:34)
[2016-04-21 07:08] LABS: Hematocrit 30 % (42-52); Hemoglobin 10.2 g/dl (14.0-18.0); Mean Corpuscular HGB Conc 34 g/dl (31-36); Mean Corpuscular Hemoglobin 34 pg (27-31); Mean Corpuscular Volume 98 fL (80-94); Mean Platelet Volume 8 um3 (7.4-10.4); Red Blood Count 3.03 10^6/ul (4.0-5.4); Red Cell Distribution Width 13 % (10.5-15); White Blood Count 12.7 10^3/ul (3.5-10.8)
[2016-04-21 07:19] LABS: Albumin 2.5 g/dL (3.2-5.2); BUN/Creatinine Ratio 7.8 (8-20); Calcium 7.7 mg/dL (8.6-10.3); EGFR African American 172.4 (>60); EGFR Non-African American 134.1 (>60); Globulin 2.7 g/dL (2-4); Magnesium 1.8 mg/dL (1.9-2.7); Total Protein 5.2 g/dL (6.4-8.9)
[2016-04-21 07:20] LABS: Direct Bilirubin 0.4 mg/dL (0.03-0.18); Indirect Bilirubin 0.7 mg/dL (0.3-1.0); Total Bilirubin 1.1 mg/dL (0.2-1.0)
[2016-04-21 07:34] LABS: Potassium 2.7 mmol/L (3.5-5.0)
[2016-04-21] MEDS ORDERED: D5W 1/2 NS KCl 20 Meq 1000 ML* 1,000 ML IV SCH (08:00)
[2016-04-21] MEDS ORDERED: Potassium Chlor TAB* 20 MEQ TAB.ER PO ONE ×2 (08:20→23:00)
[2016-04-21] MEDS ORDERED: Potassium Chlor TAB* 20 MEQ TAB.ER PO SCH (10:00)
[2016-04-21] MEDS: Potassium Chlor TAB* 20 MEQ TAB.ER PO SCH ×4 (10:41→23:33)
[2016-04-21] MEDS: Pantoprazole IV* 40 MG IV SCH (11:09)
[2016-04-21] MEDS: KCL 20 MEQ/100 ML IVPREMIX* 20 MEQ/100 ML BAG IV SCH ×3 (11:10→18:07)
[2016-04-21] MEDS ORDERED: Dextrose 50% Syringe 50 ML* 25 GM/50 ML SYRINGE IV PUSH PRN (14:19)
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
[2016-04-21] MEDS: Insulin LISPRO* 1 UNITS UNIT SUBCUT SCH ×2 (17:46→23:34)
[2016-04-21 22:20] LABS: BUN/Creatinine Ratio 6.2 (8-20); Calcium 7.7 mg/dL (8.6-10.3); EGFR African American 169.3 (>60); EGFR Non-African American 131.7 (>60)
[2016-04-22] MEDS: Nystatin TOP POWDER* 15 GM BTL TOPICAL SCH ×3 (01:06→22:13)
[2016-04-22] MEDS: LORazepam INJ* 2 MG/ML 1 ML VIAL IV SCH ×3 (01:07→06:09)
[2016-04-22] MEDS: Heparin VIAL(*) 5000 UNITS/ML VIAL (FIVE THOUSAND) SUBCUT SCH ×3 (05:52→22:13)
[2016-04-22 05:54] LABS: BUN/Creatinine Ratio 4.8 (8-20); Calcium 7.7 mg/dL (8.6-10.3); EGFR African American 178.8 (>60); EGFR Non-African American 139.1 (>60); Magnesium 1.8 mg/dL (1.9-2.7)
[2016-04-22 05:57] LABS: Potassium 2.7 mmol/L (3.5-5.0)
[2016-04-22] MEDS: Insulin LISPRO* 1 UNITS UNIT SUBCUT SCH ×4 (08:54→22:13)
[2016-04-22] MEDS: Pantoprazole IV* 40 MG IV SCH (08:55)
[2016-04-22] MEDS: KCL 20 MEQ/100 ML IVPREMIX* 100 ML BAG IV SCH ×2 (08:55→11:05)
[2016-04-22] MEDS ORDERED: Potassium Chlor TAB* 20 MEQ TAB.ER PO ONE (09:26)
[2016-04-22] MEDS: KCL 20 MEQ/100 ML IVPREMIX* 20 MEQ/100 ML BAG IV SCH ×5 (11:05→19:17)
--- NOTE | 2016-04-22 15:17 | PN ---
Subjective Date of Service: 04/22/16 Interval History: Much more alert and interactive. Tolerated full liquid diet. No abdominal pain. Diarrhea continues. Per mother he was asking for liquor today. Family History: Unchanged from Admission Social History: Unchanged from Admission Past Medical History: Unchanged from Admission Objective Active Medications: Acetaminophen (Tylenol Adult Liq*) 650 mg PO Q4H PRN PRN Reason: PAIN Last Admin: 04/21/16 23:42 Dose: 650 mg Dextrose (D50w Syringe 50 Ml*) 12.5 gm IV PUSH .FOR FS < 60 - SS PRN PRN Reason: FS < 60 Heparin Sodium (Porcine) (Heparin Vial(*)) 5,000 units SUBCUT Q8HR [facility] Last Admin: 04/22/16 14:03 Dose: 5,000 units Potassium Chloride (Potassium Chloride 20 Meq/100 Ml Ivpremix*) 20 meq in 100 mls @ 50 mls/hr IV Q2H [facility] Stop: 04/22/16 19:59 Last Admin: 04/22/16 14:03 Dose: 50 mls/hr Insulin Human Lispro (Humalog*) 0 units SUBCUT ACHS [facility] PRN Reason: Protocol Last Admin: 04/22/16 12:23 Dose: 2 units Lorazepam (Ativan Inj*) 0 mg IV .PER WAM SCORE [facility] PRN Reason: Protocol Last Admin: 04/22/16 06:09 Dose: 1 mg Nystatin (Nystatin Top Powder*) 1 applic TOPICAL BID [facility] Last Admin: 04/22/16 08:54 Dose: 1 apply Ondansetron HCl (Zofran Inj*) 4 mg IV Q4H PRN PRN Reason: NAUSEA Last Admin: 04/19/16 12:34 Dose: 4 mg Pantoprazole Sodium (Protonix Iv*) 40 mg IV Q24H [facility] Last Admin: 04/22/16 08:55 Dose: 40 mg Vital Signs 04/21/16 04/21/16 04/21/16 16:10 18:34 20:00 Temperature 98.4 F 98.5 F Pulse Rate 105 112 Respiratory 18 Rate Blood Pressure 155/88 147/83 (mmHg) O2 Sat by Pulse 95 95 Oximetry 04/21/16 04/21/16 04/22/16 20:08 22:17 00:00 Temperature 98.3 F 99.1 F Pulse Rate 99 90 Respiratory 18 Rate Blood Pressure 130/111 156/89 (mmHg) O2 Sat by Pulse 96 98 Oximetry 04/22/16 04/22/16 04/22/16 00:23 01:07 02:00 Temperature 99.6 F 97.3 F Pulse Rate 100 85 Respiratory 16 18 24 Rate Blood Pressure 154/81 151/81 (mmHg) O2 Sat by Pulse 97 95 Oximetry 04/22/16 04/22/16 04/22/16 02:07 02:51 03:51 Temperature Pulse Rate Respiratory 24 2 24 Rate Blood Pressure (mmHg) O2 Sat by Pulse Oximetry 04/22/16 04/22/16 04/22/16 04:00 04:05 05:59 Temperature 98.7 F Pulse Rate 84 Respiratory 24 16 26 Rate Blood Pressure 139/85 (mmHg) O2 Sat by Pulse 97 Oximetry 04/22/16 04/22/16 04/22/16 06:09 06:27 07:08 Temperature 97.9 F Pulse Rate 83 Respiratory 26 16 16 Rate Blood Pressure 157/83 (mmHg) O2 Sat by Pulse 97 Oximetry 04/22/16 04/22/16 04/22/16 07:54 08:00 10:53 Temperature 99.8 F 99.3 F Pulse Rate 78 104 Respiratory 16 16 18 Rate Blood Pressure 148/87 116/61 (mmHg) O2 Sat by Pulse 96 98 Oximetry 04/22/16 12:22 Temperature 98.6 F Pulse Rate 99 Respiratory 16 Rate Blood Pressure 137/69 (mmHg) O2 Sat by Pulse 95 Oximetry Oxygen Devices in Use Now: None Appearance: sitting up, interactive, NAD Eyes: No Scleral Icterus, PERRLA Ears/Nose/Mouth/Throat: Clear Oropharnyx, Mucous Membranes Moist Neck: NL Appearance and Movements; NL JVP, Trachea Midline Respiratory: Symmetrical Chest Expansion and Respiratory Effort, Clear to Auscultation Cardiovascular: NL Sounds; No Murmurs; No JVD, RRR Abdominal: - - soft, mild distention, NTTP, +bs Lymphatic: No Cervical Adenopathy Extremities: - - 1+ le edema, large scrotal edema Neurological: Alert and Oriented x 3 Result Diagrams: 04/21/16 07:00 04/22/16 04:54 Microbiology and Other Data: Microbiology 04/14/16 12:00 Nasal Screen MRSA (PCR)(ALEENA) - Final Nasal Mrsa Negative Assess/Plan/Problems-Billing Assessment: 45 yo M with hx of active EtOH abuse and HTN p/w severe acute pancreatitis with necrosis based on CT, lactic acidosis, LUPIS, transaminitis with stay complicated by loose stools, ileus, encephalopathy and hypokalemia - Patient Problems (1) Ileus Comment: suspected based on CT findings as well as abdominal distention Resolving with passage of loose stools. minimize narcotics advance diet to soft 04/22/16 If nausea or vomiting or change in abdominal exam will repeat abdominal XR (2) Acute pancreatic necrosis Comment: stop fluids 04/21/16 Dilaudid for pain control. Advance diet to soft 04/22/16 change insulin to lispro with meals Pancreatic necrosis on presenting CT not evident on repeat 04/19/16 completed Meropenem x 3 days (not clear there was ever concern for infected necrosis) - discontinued abx 04/18/16 (3) Toxic metabolic encephalopathy Comment: Acute and present on admission 2/2 systemic illness from severe pancreatitis in combination with alcohol withdrawal. Improving with therapy for pancreatitis and etoh withdrawal (4) Alcohol withdrawal Comment: WAM with ativan protocol - decreased dosing given with WAM protocol again on 04/21/16 Reportedly drinking at least 30 beers/day in addition to unknown quantity of vodka (5) Transaminitis Comment: In distribution of alcoholic hepatitis which also fits clinical picture largely resolved (6) LUPIS (acute kidney injury) Comment: Renal function resolved (7) Metabolic acidosis Comment: Resolved, stopped bicarb (8) Hypokalemia Comment: Suspect total volume depetion in addition to large amount of urinary output and diarrhea replete and trend (9) DVT prophylaxis Comment: HSQ
[2016-04-22] MEDS ORDERED: Spironolactone TAB* 25 MG PO SCH (15:45)
[2016-04-22] MEDS: Pancrelipase CAP* 5,000 UNITS CAP PO SCH (16:21)
[2016-04-23] MEDS: Heparin VIAL(*) 5000 UNITS/ML VIAL (FIVE THOUSAND) SUBCUT SCH ×3 (06:25→21:44)
[2016-04-23 06:26] LABS: BUN/Creatinine Ratio 4.6 (8-20); Calcium 7.9 mg/dL (8.6-10.3); EGFR African American 169.3 (>60); EGFR Non-African American 131.7 (>60); Magnesium 1.8 mg/dL (1.9-2.7)
[2016-04-23 06:28] LABS: Potassium 2.7 mmol/L (3.5-5.0)
[2016-04-23] MEDS: Pantoprazole IV* 40 MG IV SCH (08:41)
[2016-04-23] MEDS: Potassium Chlor TAB* 20 MEQ TAB.ER PO SCH ×5 (08:41→17:24)
[2016-04-23] MEDS: Insulin LISPRO* 1 UNITS UNIT SUBCUT SCH ×4 (08:42→20:30)
[2016-04-23] MEDS: Pancrelipase CAP* 5,000 UNITS CAP PO SCH ×3 (08:42→17:24)
[2016-04-23] MEDS: Nystatin TOP POWDER* 15 GM BTL TOPICAL SCH ×2 (08:48→20:30)
[2016-04-23] MEDS ORDERED: Spironolactone TAB* 25 MG PO SCH (09:00)
[2016-04-23] MEDS ORDERED: Magnesium Sulfate 2 GM IV* 2 GM/50 ML BAG IVPB ONE (12:30)
--- NOTE | 2016-04-23 14:46 | PN ---
Subjective Date of Service: 04/23/16 Interval History: Seen with mother present Feels much better today Tolerating soft diet Has diarrhea after every meal but not in between Denies pain Last ativan >24hrs prior Family History: Unchanged from Admission Social History: Unchanged from Admission Past Medical History: Unchanged from Admission Objective Active Medications: Acetaminophen (Tylenol Adult Liq*) 650 mg PO Q4H PRN PRN Reason: PAIN Last Admin: 04/21/16 23:42 Dose: 650 mg Amiloride HCl (Midamor Tab*) 10 mg PO DAILY [facility] Dextrose (D50w Syringe 50 Ml*) 12.5 gm IV PUSH .FOR FS < 60 - SS PRN PRN Reason: FS < 60 Heparin Sodium (Porcine) (Heparin Vial(*)) 5,000 units SUBCUT Q8HR [facility] Last Admin: 04/23/16 13:50 Dose: 5,000 units Insulin Human Lispro (Humalog*) 0 units SUBCUT ACHS [facility] PRN Reason: Protocol Last Admin: 04/23/16 13:50 Dose: 2 units Lorazepam (Ativan Inj*) 0 mg IV .PER WAM SCORE [facility] PRN Reason: Protocol Last Admin: 04/22/16 06:09 Dose: 1 mg Nystatin (Nystatin Top Powder*) 1 applic TOPICAL BID [facility] Last Admin: 04/23/16 08:48 Dose: 1 apply Ondansetron HCl (Zofran Inj*) 4 mg IV Q4H PRN PRN Reason: NAUSEA Last Admin: 04/19/16 12:34 Dose: 4 mg Pancrelipase (Zenpep Delayed Cap*) 5,000 units PO TID WITH MEALS [facility] Last Admin: 04/23/16 12:04 Dose: 5,000 units Pantoprazole Sodium (Protonix Iv*) 40 mg IV Q24H [facility] Last Admin: 04/23/16 08:41 Dose: 40 mg Potassium Chloride (Klor Con Er Tab*) 40 meq PO Q2H [facility] Stop: 04/23/16 17:01 Last Admin: 04/23/16 13:50 Dose: 40 meq Vital Signs 04/22/16 04/22/16 04/22/16 15:14 16:10 20:00 Temperature 98.2 F 98.5 F Pulse Rate 84 81 Respiratory 18 17 18 Rate Blood Pressure 154/88 154/79 (mmHg) O2 Sat by Pulse 95 95 Oximetry 04/22/16 04/22/16 04/22/16 20:03 23:36 23:52 Temperature 98.0 F 99.5 F Pulse Rate 81 82 81 Respiratory 17 16 Rate Blood Pressure 156/102 162/95 156/90 (mmHg) O2 Sat by Pulse 97 96 Oximetry 04/23/16 04/23/16 04/23/16 04:19 07:34 08:00 Temperature 98.3 F 98.1 F Pulse Rate 77 78 Respiratory 16 16 16 Rate Blood Pressure 155/85 154/92 (mmHg) O2 Sat by Pulse 95 96 Oximetry Oxygen Devices in Use Now: None Appearance: NAD Eyes: No Scleral Icterus, PERRLA Ears/Nose/Mouth/Throat: NL Teeth, Lips, Gums, Clear Oropharnyx, Mucous Membranes Moist Neck: NL Appearance and Movements; NL JVP, Trachea Midline Respiratory: Symmetrical Chest Expansion and Respiratory Effort, Clear to Auscultation Cardiovascular: NL Sounds; No Murmurs; No JVD, RRR Abdominal: - - soft, NTTP, mild distention, +bs Lymphatic: No Cervical Adenopathy Extremities: - - 1+ le edema, scrotal edema with erythema Neurological: Alert and Oriented x 3 Result Diagrams: 04/21/16 07:00 04/23/16 04:56 Microbiology and Other Data: Microbiology 04/14/16 12:00 Nasal Screen MRSA (PCR)(ALEENA) - Final Nasal Mrsa Negative Assess/Plan/Problems-Billing Assessment: 45 yo M with hx of active EtOH abuse and HTN p/w severe acute pancreatitis with necrosis based on CT, lactic acidosis, LUPIS, transaminitis with stay complicated by loose stools, ileus, encephalopathy and hypokalemia - Patient Problems (1) Hypokalemia Comment: Suspect total volume depetion in addition to large amount of urinary output and diarrhea change spironolactone to amiloride after discussion with Dr. Mary PO potassium 40mew q2hrs x 5 doses today then recheck BMP. Replete additionally as needed. (2) Acute pancreatic necrosis Comment: stopped fluids 04/21/16 Dilaudid discontinued Advance diet to regular 04/23/16 in evening change insulin to lispro with meals Pancreatic necrosis on presenting CT not evident on repeat 04/19/16 (3) Toxic metabolic encephalopathy Comment: Acute and present on admission 2/2 systemic illness from severe pancreatitis in combination with alcohol withdrawal. Resolved with therapy for pancreatitis and etoh withdrawal (4) Ileus Comment: resolved (5) Alcohol withdrawal Comment: WAM on MAR if needed for ativan for symptoms but WAM assessments stopped Resolved Reportedly drinking at least 30 beers/day in addition to unknown quantity of vodka We have been aggressive in attempting to help bridge pt back to community with support of social insurance adviser but to this point he has remained resistant to help (6) Transaminitis Comment: In distribution of alcoholic hepatitis which also fits clinical picture largely resolved (7) LUPIS (acute kidney injury) Comment: Renal function resolved (8) Metabolic acidosis Comment: Resolved, stopped bicarb (9) DVT prophylaxis Comment: HSQ Status and Disposition: Pancreatitis and etoh withdrawal resolved but has remained with severe hypokalemia despite aggressive replacement both IV and PO.
[2016-04-23] MEDS: aMILoride TAB* 5 MG PO SCH (15:32)
[2016-04-23 16:17] LABS: BUN/Creatinine Ratio 4.9 (8-20); Calcium 8.1 mg/dL (8.6-10.3); EGFR African American 182.2 (>60); EGFR Non-African American 141.7 (>60); Potassium 2.9 mmol/L (3.5-5.0)
[2016-04-23] MEDS: KCL 20 MEQ/100 ML IVPREMIX* 20 MEQ/100 ML BAG IV SCH ×3 (17:24→23:11)
[2016-04-23] MEDS ORDERED: Potassium Chlor TAB* 20 MEQ TAB.ER PO ONE (21:00)
[2016-04-24] MEDS: Heparin VIAL(*) 5000 UNITS/ML VIAL (FIVE THOUSAND) SUBCUT SCH ×3 (05:25→22:32)
[2016-04-24] MEDS: Pantoprazole IV* 40 MG IV SCH (09:15)
[2016-04-24] MEDS: Insulin LISPRO* 1 UNITS UNIT SUBCUT SCH ×4 (09:15→22:29)
[2016-04-24] MEDS: Nystatin TOP POWDER* 15 GM BTL TOPICAL SCH ×2 (09:15→23:06)
[2016-04-24] MEDS: aMILoride TAB* 5 MG PO SCH (09:16)
[2016-04-24] MEDS: Pancrelipase CAP* 5,000 UNITS CAP PO SCH ×3 (09:16→17:17)
[2016-04-24 10:16] LABS: BUN/Creatinine Ratio 4.3 (8-20); Calcium 8.4 mg/dL (8.6-10.3); EGFR African American 155.5 (>60); EGFR Non-African American 120.9 (>60); Potassium 3.7 mmol/L (3.5-5.0)
--- NOTE | 2016-04-24 18:06 | PN ---
Subjective Date of Service: 04/24/16 Interval History: Pt feels well. Still c/o bloating and large loose stool 3x/day. Family History: Unchanged from Admission Social History: Unchanged from Admission Past Medical History: Unchanged from Admission Objective Active Medications: Acetaminophen (Tylenol Adult Liq*) 650 mg PO Q4H PRN PRN Reason: PAIN Last Admin: 04/21/16 23:42 Dose: 650 mg Amiloride HCl (Midamor Tab*) 10 mg PO DAILY [facility] Last Admin: 04/24/16 09:16 Dose: 10 mg Dextrose (D50w Syringe 50 Ml*) 12.5 gm IV PUSH .FOR FS < 60 - SS PRN PRN Reason: FS < 60 Heparin Sodium (Porcine) (Heparin Vial(*)) 5,000 units SUBCUT Q8HR [facility] Last Admin: 04/24/16 14:35 Dose: 5,000 units Insulin Human Lispro (Humalog*) 0 units SUBCUT ACHS [facility] PRN Reason: Protocol Last Admin: 04/24/16 17:17 Dose: 2 units Lorazepam (Ativan Inj*) 0 mg IV .PER WAM SCORE [facility] PRN Reason: Protocol Last Admin: 04/22/16 06:09 Dose: 1 mg Nystatin (Nystatin Top Powder*) 1 applic TOPICAL BID [facility] Last Admin: 04/24/16 09:15 Dose: 1 apply Ondansetron HCl (Zofran Inj*) 4 mg IV Q4H PRN PRN Reason: NAUSEA Last Admin: 04/19/16 12:34 Dose: 4 mg Pancrelipase (Zenpep Delayed Cap*) 10,000 units PO AC [facility] Pantoprazole Sodium (Protonix Iv*) 40 mg IV Q24H [facility] Last Admin: 04/24/16 09:15 Dose: 40 mg Vital Signs 04/23/16 04/23/16 04/24/16 20:00 23:28 07:27 Temperature 99.0 F 99.4 F Pulse Rate 86 80 Respiratory 20 16 16 Rate Blood Pressure 154/77 151/87 (mmHg) O2 Sat by Pulse 97 97 Oximetry 04/24/16 04/24/16 04/24/16 08:00 11:33 15:44 Temperature 98.9 F 98.3 F Pulse Rate 79 84 Respiratory 16 17 17 Rate Blood Pressure 146/83 152/91 (mmHg) O2 Sat by Pulse 98 99 Oximetry Oxygen Devices in Use Now: None Appearance: 45 yo M in nAd, aAOx3 Eyes: No Scleral Icterus, PERRLA Ears/Nose/Mouth/Throat: NL Teeth, Lips, Gums, Mucous Membranes Moist Neck: NL Appearance and Movements; NL JVP, Trachea Midline Respiratory: Symmetrical Chest Expansion and Respiratory Effort, Clear to Auscultation Cardiovascular: NL Sounds; No Murmurs; No JVD, RRR Abdominal: - - distended, tympanic, NT, BS+ Lymphatic: No Cervical Adenopathy Extremities: No Edema, No Clubbing, Cyanosis Skin: No Rash or Ulcers, No Nodules or Sclerosis Neurological: Alert and Oriented x 3, NL Muscle Strength and Tone Result Diagrams: 04/21/16 07:00 04/24/16 09:42 Microbiology and Other Data: Microbiology 04/14/16 12:00 Nasal Screen MRSA (PCR)(ALEENA) - Final Nasal Mrsa Negative Assess/Plan/Problems-Billing Assessment: 45 yo M with hx of active EtOH abuse and HTN p/w severe acute pancreatitis with necrosis based on CT, lactic acidosis, LUPIS, transaminitis with stay complicated by loose stools, ileus, encephalopathy and hypokalemia - Patient Problems (1) Hypokalemia Comment: Suspect total volume depetion in addition to large amount of urinary output and diarrhea cont amiloride Resolving (2) Acute pancreatic necrosis Comment: Now with diarrhea and bloating due to pancreatic insufficency as well as hyperglycemia-suspect DM, HbA1C pending will increase pancrelipaze (3) Toxic metabolic encephalopathy Comment: Acute and present on admission 2/2 systemic illness from severe pancreatitis in combination with alcohol withdrawal. Resolved with therapy for pancreatitis and etoh withdrawal (4) Ileus Comment: resolved (5) Metabolic acidosis Comment: Resolved, stopped bicarb (6) LUPIS (acute kidney injury) Comment: resolved (7) Transaminitis Comment: In distribution of alcoholic hepatitis which also fits clinical picture largely resolved (8) HTN (hypertension) Comment: Holding home medications. (9) Alcohol withdrawal Comment: Resolved Reportedly drinking at least 30 beers/day in addition to unknown quantity of vodka (10) DVT prophylaxis Comment: HSQ Status and Disposition: Pancreatitis and etoh withdrawal resolved but has remained with severe hypokalemia despite aggressive replacement both IV and PO.
[2016-04-25 01:58] VITALS: BP 166/88
[2016-04-25] MEDS: Heparin VIAL(*) 5000 UNITS/ML VIAL (FIVE THOUSAND) SUBCUT SCH (06:19)
[2016-04-25 06:54] LABS: BUN/Creatinine Ratio 4.1 (8-20); Calcium 8.4 mg/dL (8.6-10.3); EGFR African American 148.1 (>60); EGFR Non-African American 115.2 (>60); Potassium 3.3 mmol/L (3.5-5.0)
[2016-04-25] MEDS ORDERED: Potassium Chlor TAB* 20 MEQ TAB.ER PO ONE (08:54)
[2016-04-25] MEDS: Insulin LISPRO* 1 UNITS UNIT SUBCUT SCH ×2 (08:55→12:48)
[2016-04-25] MEDS: Pancrelipase CAP* 5,000 UNITS CAP PO SCH ×2 (08:56→12:48)
[2016-04-25] MEDS: Pantoprazole IV* 40 MG IV SCH (08:56)
[2016-04-25] MEDS: aMILoride TAB* 5 MG PO SCH (08:57)
--- NOTE | 2016-04-26 05:39 | DS ---
DISCHARGE SUMMARY: DATE OF ADMISSION: 04/24/16 DATE OF DISCHARGE: 04/25/16 PRIMARY CARE PROVIDER: Dr. Gloria Catalan. DISCHARGE DIAGNOSES: 1. Acute alcoholic pancreatitis with pancreatic necrosis and subsequent development of diabetes, diet controlled as well as pancreatic insufficiency. 2. Acute kidney injury due to the above mentioned, resolved. 3. Metabolic acidosis due to the above mentioned, resolved. 4. Alcohol withdrawal, status post treatment, resolved. 5. Mild alcoholic hepatitis. 6. Ileus as complication of pancreatitis, resolved. 7. Toxic metabolic encephalopathy due to complication of pancreatitis, resolved. 8. Hypokalemia. MEDICATIONS AT DISCHARGE: Include: 1. Pancrelipase 8400 units p.o. 3 times a day. 2. Amiloride 5 mg daily. 3. Potassium chloride 20 mEq p.o. daily for a total of 7 days. LABORATORY DATA AND STUDIES PERFORMED DURING THE HOSPITAL STAY: Included: On 04/21/16, white blood cell count of 12.7, hemoglobin 10.2, hematocrit of 30 , MCV of 98, and platelets of 162. On 04/25/16, sodium of 135, potassium 3.3, chloride 103, carbon dioxide 25, BUN 3, creatinine 0.73. Glucose level of 175 was documented on 04/25/16. Hemoglobin A1c was 5.4 documented on 04/25/16. Most recent liver function test obtained on 04/21/16 showed total bilirubin of 1.1, direct bilirubin of 0.4, AST of 25, ALT of 15, alkaline phosphatase of 63. Total protein was 5.2 and albumin 2.5. Abdomen and pelvis obtained 04/19/16 impression: "peripancreatic inflammatory change and edema with fluid tracking along the retroperitoneum consistent with history of pancreatitis. There was no loculated fluid collection. Bilateral pleural effusions with bibasilar atelectasis. Fatty infiltration of the liver. Diffuse small bowel distention without transition point suggestive of an ileus pattern." Initial CT of the abdomen was obtained on 04/13/16 impression: "acute pancreatitis with significant peripancreatic inflammation and suggestion of potential pancreatic necrosis involving approximately 15% to 20% of the pancreas. Small volume of non- loculated anterior pararenal space and retroperitoneal fluid with intraperitoneal extension down to the right paracolic gutter. Negative for peripancreatic fluid. Fatty infiltration of the liver. Negative for biliary dilatation." CONSULTANTS DURING THE HOSPITAL STAY: Included: 1. Dr. Cuevas from Gastroenterology. 2. Bag Mender. PHYSICAL EXAMINATION AT THE TIME OF DISCHARGE: Blood pressure 166/88, heart rate of 83 and regular, respiratory rate 16, oxygen saturation 98% on room air , temperature 99.0. General: The patient is a pleasant 45-year-old obese male with a BMI of 32 who is in no acute distress. Awake, alert, and oriented x3. HEENT: Head atraumatic, normocephalic. Eyes: Pupils equal, round, and reactive to light and accommodation. Oropharynx clear. Mucosa moist. Neck: Supple. No JVD. No bruits bilaterally. Cardiovascular: Regular rate and rhythm. No murmurs. Respiratory: Clear to auscultation bilaterally. Abdomen: Distended, soft, protuberant, nontender. Bowel sounds are present in all 4 quadrants. Extremities: There is no edema. Pulses +2 bilaterally. There is no clubbing or cyanosis. Psychiatric evaluation: Pleasant and cooperative with evaluation. Oriented x3 with no evidence of anxiety or depression. Neuro Evaluation: Speech clear. Cranial nerves II through XII are grossly intact. Motor strength is 5/5. HOSPITALIZATION COURSE: Gio Fierro is a 45-year-old male with history of alcohol abuse who presented complaining of abdominal pain on 04/13/16 and was noted to have acute pancreatitis. Although his lipase, the maximum level was 1204, he was noted to have severe pancreatic inflammation and possibly pancreatic necrosis on the CT scan. The patient was admitted to the hospital and treated initially in the intensive care unit. His hospitalization was complicated by alcohol withdrawal and toxic metabolic encephalopathy. He was treated with Ativan withdrawal protocol. He was seen by Dr. Cuevas for gastroenterology consultation. It was noted that the patient most likely has alcoholic pancreatitis. The patient's clinical status slowly improved. By the time of discharge, he was alert and oriented x3. He developed hyper-glycemia most likely due to pancreatic injury as well as diarrhea and bloating suggestive of pancreatic insufficiency. Due to that pancrelipase was started and titrated at the end of his hospital stay. Nevertheless, he still continues to have at least 3 large bowel movements a day. He also developed hypokalemia most likely due to frequent and large bowel movements and he is going to be placed on potassium supplement at discharge. In regards to his hyperglycemia, he most likely has diabetes. He may be able to control it with diet only since his sugars had been in the 170s to 150s range. The patient underwent diabetic nutrition evaluation. He is going to be discharged on diabetic diet only. Unfortunately, the early childhood educator aide was not available at the end of patient's hospital stay. In regards to patient's pancreatic insufficiency, his pancrelipase could be titrated up in regards to the dose. At discharge, the patient recommended to follow up with his primary care provider with already a scheduled appointment on 04/29/16 at 2:20 p.m. Also recommended the patient to follow up with alternative dispute resolution mediator within the next couple of weeks in regards to pancreatic insufficiency. Please note this is a short summary of the patient's long and complicated hospitalization. Please refer to further medical record for details. TIME SPENT: Approximately 40 minutes was spent on the patient's discharge. CC: Dr. Gloria Catalan; Dr. Cuevas * [id number]/CPS #: [id number] MTDD
--- NOTE | 2016-07-17 23:19 | ED ---
Pepe Looney Erika, scribed for Wagner Karimi MD on 04/13/16 at 2308 . Progress - Progress Note Progress Note: Discussed patient care with Dr. Oliva (radiology) at 23:07 - discuss CT results - pancreatitis Dr. Mujica (hospitalist) at 23:11 - updated with CT results. Pt is admitted. - Results/Orders Results/Orders: CT A/P w/ Read by Radiologist: IMPRESSION: 1. Acute pancreatitis with significant peripancreatic inflammation and suggestion of potential pancreatic necrosis involving approximate 15 - 20% of the pancreas. 2. Small volume of nonloculated anterior pararenal space retroperitoneal fluid with intraperitoneal extension down the RIGHT paracolic gutter. Negative for loculated peripancreatic fluid. 3. Fatty infiltration of the liver. 4. Negative for biliary dilatation. Results discussed with Dr. Karimi 04/13/2016 11:06 PM EST Re-Evaluation - Re-Evaluation First Eval Re-Evaluation Time: 22:48 - results d/w pt, mildly improved Change: Improved Course/Dx - Diagnoses Provider Diagnoses: Pancreatitis - Critical Care Time Critical Care Time: 30-74 min The documentation as recorded by the Pepe fierro Erika accurately reflects the service I personally performed and the decisions made by Sachi ann David, MD.
== END 2016-04-25 13:56 | disposition home or self-care (01) | DRG 438 ==
LOC: ED 20:04 → MED 04-14 00:37 → ICU 04-14 11:22 → MED 04-20 12:40
PROVIDERS: ADMIT Internal Medicine; ATTEND Internal Medicine
PROC: 02HV33Z Insertion of Infusion Device into Superior Vena Cava, Percutaneous Approach (ICD-10-PCS; principal; 2016-04-15)
DX: K85.21 Alcohol induced acute pancreatitis with uninfected necrosis (principal); K83.1 Obstruction of bile duct; G92 Toxic encephalopathy; N17.9 Acute kidney failure, unspecified; J90 Pleural effusion, not elsewhere classified; E87.2 Acidosis; F10.239 Alcohol dependence with withdrawal, unspecified; K56.7 Ileus, unspecified; J98.11 Atelectasis; I10 Essential (primary) hypertension; K86.89 Other specified diseases of pancreas; E80.6 Other disorders of bilirubin metabolism; E83.51 Hypocalcemia; R74.0 Nonspecific elevation of levels of transaminase and lactic acid dehydrogenase [LDH]; R53.83 Other fatigue; E87.6 Hypokalemia; E83.42 Hypomagnesemia; E83.39 Other disorders of phosphorus metabolism; E13.9 Other specified diabetes mellitus without complications; K70.10 Alcoholic hepatitis without ascites; Z82.49 Family history of ischemic heart disease and other diseases of the circulatory system; Z83.3 Family history of diabetes mellitus
CPT/HCPCS: 36415; 36600; 74177; 76705; 80048; 80053; 80076; 80320; 81003; 81015; 82140; 82330; 82436; 82803; 83036; 83605; 83690; 83735; 83935; 84100; 84133; 84300; 85025; 85610; 85730; 86140; 87040; 87045; 87046; 87493; 87641; 87899; 94660; 94760; 99284; A9270-GY; C1751; G0480; J1170; J1644; J2060; J2185; J2270; J2405; J3411; J3475; J3480; J7060; Q9967

== ENCOUNTER 2017-07-30 15:45 | Inpatient (IN) | payer OTHER ==
[2017-07-30] MEDS ORDERED: NS 0.9% 1000 ML* 1,000 ML IV ONE (16:00)
[2017-07-30] MEDS ORDERED: Diltiazem IV* 5 MG/ML 5 ML VIAL (for loading dose/IV Push) (25 MG) IV PUSH ONE (16:00)
[2017-07-30] MEDS: Diltiazem DRIP* 100 MG/100 ML ADDV.BAG IVPB ONE ×2 (16:23→23:23)
[2017-07-30 16:29] LABS: INR 0.86 (0.77-1.02)
[2017-07-30 16:39] LABS: ABS Basophils 0 10^3/ul (0-0.2); ABS Eosinophils 0 10^3/ul (0-0.6); ABS Lymphocytes 1.1 10^3/ul (1.0-4.8); ABS Neutrophils 4.8 10^3/ul (1.5-7.7); ABS Nucleated RBC 0 10^3/ul; Eosinophil % 0.1 % (0-6); Hematocrit 45 % (42-52); Hemoglobin 16.2 g/dl (14.0-18.0); Mean Corpuscular HGB Conc 36 g/dl (31-36); Mean Corpuscular Hemoglobin 32 pg (27-31); Mean Corpuscular Volume 89 fL (80-94); Mean Platelet Volume 7.7 um3 (7.4-10.4); Nucleated Red Blood Cells % 0; Platelet Count 238 10^3/ul (150-450); Red Blood Count 5.02 10^6/ul (4.0-5.4); Red Cell Distribution Width 13 % (10.5-15)
[2017-07-30 16:43] LABS: EGFR Non-African American 112.9 (>60)
[2017-07-30] MEDS ORDERED: Magnesium Sulfate 1 GM IV* 1 GM/100 ML BAG IV ONE (16:58)
[2017-07-30] MEDS ORDERED: Diltiazem IV VIAL* 125 MG/25 ML VIAL IV PUSH ONE (17:00)
--- NOTE | 2017-07-30 17:10 | RAD ---
INDICATION: Atrial fibrillation. COMPARISON: There are no prior studies available for comparison. TECHNIQUE: A portable view of the chest was obtained. FINDINGS: Cardiac and mediastinal contours appear to be within normal limits. The lungs are clear. No pleural effusion is seen. IMPRESSION: NO EVIDENCE FOR ACUTE DISEASE.
[2017-07-30] MEDS ORDERED: Acetaminophen TAB* 325 MG PO PRN ×2 (17:33)
[2017-07-30] MEDS ORDERED: Ondansetron INJ* 2 MG/ML VIAL IV PRN (17:33)
[2017-07-30] MEDS ORDERED: Magnesium Sulfate 2 GM IV* 2 GM/50 ML BAG IVPB ONE (17:33)
[2017-07-30] MEDS ORDERED: Thiamine IV 100 MG, Folic Acid IV* 1 MG, Multiple Vitamin IV ADULT* 10 ML in D5NS 0.9% ... IV ONE (17:33)
[2017-07-30] MEDS ORDERED: Dextrose 50% Syringe 50 ML* 25 GM/50 ML SYRINGE IV PUSH PRN (17:41)
[2017-07-30] MEDS ORDERED: Potassium Chlor TAB* 20 MEQ TAB.ER PO ONE (17:51)
[2017-07-30] MEDS ORDERED: Diltiazem DRIP* 100 MG/100 ML ADDV.BAG IVPB SCH (18:00)
[2017-07-30] MEDS ORDERED: LORazepam TAB(*) 1 MG PO SCH (18:00)
--- NOTE | 2017-07-30 18:52 | ED ---
Jennifer Looney Julia, scribed for Bebe Parish MD on 07/30/17 at 1606 . Palpitations / Dysrhythmia - HPI Summary HPI Summary: This patient is a 46 year old M presenting to [facility] from Dr. Snider office accompanied by his due a new onset of a-fib and RVR noticed during a screening before sx for his right knee at [facility]. Dr. Catalan noticed an irregular pulse and found a-fib at a rate of 145. PMHx includes pacreatitis, HTN and DM taking oral meds and insulin. He reports recently high blood glucose. He is currently asymptomatic. He denies CP and SOB. His only current complaint is right knee pain. He reports that he woke this morning with nausea and vomiting that is currently resolved. Medications and allergies reviewed this visit; no anti-coagulant use. - History of Current Complaint Chief Complaint: EDDysrhythmPalp Hx Obtained From: Patient, EMS, Other: - Dr. Catalan prior to pt being transported from her office by EMS Onset/Duration: Sudden Onset, Lasting Hours Timing: Constant Severity Initially: Severe Severity Currently: Severe Character: Fast, Irregular Aggravating: Nothing Alleviating: Nothing Associated Signs & Symptoms: Negative - Risk Factors Cardiac: Hypertension, Diabetes Atrial Fibrillation: Hypertension, Alcohol Abuse - Allergy/Home Medications Allergies/Adverse Reactions: Allergies Allergy/AdvReac Type Severity Reaction Status Date / Time No Known Allergies Allergy Verified 01/06/16 14:38 Home Medications: Home Medications Chlorthalidone TAB* [Hygroton TAB*] 25 mg PO DAILY 07/30/17 [History Confirmed 07/30/17] Glimepiride (NF) 4 mg PO BID 07/30/17 [History Confirmed 07/30/17] Hydrochlorothiazide TAB* [Hydrodiuril TAB*] 12.5 mg PO DAILY 07/30/17 [History Confirmed 07/30/17] Insulin Degludec [Tresiba Flextouch] 19 unit SUBCUT QAM 07/30/17 [History Confirmed 07/30/17] Losartan TAB* [Cozaar TAB*] 100 mg PO DAILY 07/30/17 [History Confirmed 07/30/17 ] Metformin ER (NF) 500 mg PO BID 07/30/17 [History Confirmed 07/30/17] Pantoprazole TAB (NF) [Protonix TAB (NF)] 40 mg PO DAILY 07/30/17 [History Confirmed 07/30/17] Rosuvastatin (NF) [Crestor] 20 mg PO DAILY 07/30/17 [History Confirmed 07/30/17] amLODIPine TAB* [Norvasc 5 mg TAB*] 5 mg PO DAILY 07/30/17 [History Confirmed ] PMH/Surg Hx/FS Hx/Imm Hx Previously Healthy: No Endocrine/Hematology History: Reports: Hx Diabetes Cardiovascular History: Reports: Hx Hypertension Denies: Hx Pacemaker/ICD Respiratory History: Reports: Hx Sleep Apnea GI History: Reports: Other GI Disorders - pancreatitis secondary to alcoholism History: Denies: Hx Renal Disease Musculoskeletal History: Reports: Other Musculoskeletal History - right knee ACL , infection, spine sx, shoulder sx Sensory History: Reports: Hx Contacts or Glasses Denies: Hx Hearing Aid Opthamlomology History: Reports: Hx Contacts or Glasses Psychiatric History: Reports: Hx Substance Abuse - alcohol, tobacco Denies: Hx Panic Disorder - Surgical History Surgery Procedure, Year, and Place: RIGHT KNEE ORTHO X 4 ; BACK 2000 ; LEFT SHOULDER 2011 ; RIGHT SHOULDER 11/22/2015 - Immunization History Date of Tetanus Vaccine: up to date Date of Influenza Vaccine: not yet Infectious Disease History: No Infectious Disease History: Denies: Traveled Outside the [place] in Last 30 Days - Family History Known Family History: Positive: Hypertension, Diabetes Negative: Cardiac Disease - Social History 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 Lives: With Family Alcohol Use: Daily Alcohol Amount: 8 BEERS DAILY Substance Use Type: Reports: None Substance Use Comment - Amount & Last Used: 04/13/16 Hx Tobacco Use: No Smoking Status (MU): Never Smoked Tobacco Amount Used/How Often: up to 2 cans a day Length of Time of Smoking/Using Tobacco: 30 years Have You Smoked in the Last Year: No Review of Systems Constitutional: Negative Negative: Palpitations - asymptomatic , Chest Pain Negative: Shortness Of Breath Gastrointestinal: Negative Positive: Myalgia - R knee pain Neurological: Negative Psychological: Normal All Other Systems Reviewed And Are Negative: Yes Physical Exam - Summary Physical Exam Summary: Appearance: well-appearing, no pain distress, Well-nourished, flushed, speaking in full sentences Skin: Warm, color reflects adequate perfusion Head: Normal Head/Face inspection Eyes: Conjunctiva clear ENT: Normal inspection Neck: Supple, no nodes, no JVD. Respiratory: Lungs clear, Normal breath sounds, no respiratory distress Cardio: Irreg irreg, 170-180 on monitor, No murmur, brisk capillary refill Abdomen: soft, nontender Bowel sounds: present Musculoskeletal: Strength Intact/ ROM intact. No calf tenderness. No edema. Psychological: Normal Neuro: Alert, muscle tone normal, no focal deficit Triage Information Reviewed: Yes Vital Signs On Initial Exam: Initial Vitals Temp Pulse Resp BP Pulse Ox 99.0 F 174 17 141/89 97 07/30/17 15:50 07/30/17 15:50 07/30/17 15:50 07/30/17 15:50 07/30/17 15:50 Vital Signs Reviewed: Yes Diagnostics - Vital Signs Vital Signs Temp Pulse Resp BP Pulse Ox 07/30/17 15:50 99.0 F 174 17 141/89 97 - Laboratory Result Diagrams: 07/30/17 16:00 07/30/17 16:00 Lab Statement: Any lab studies that have been ordered have been reviewed, and results considered in the medical decision making process. - Radiology CXR Radiology Interpretation Completed By: Radiologist - NO EVIDENCE FOR ACUTE DISEASE. ED Physician has reviewed this report. - EKG 1553 Cardiac Rate: Tachycardia - at 170 EKG Rhythm: Atrial Fibrillation ST Segment: Non-Specific Ectopy: None EKG Interpretation: nml IVCT, nml QTc, negative axis -13 1655 Cardiac Rate: Tachycardia - at 107 EKG Rhythm: Atrial Fibrillation ST Segment: Non-Specific Ectopy: None EKG Interpretation: nml IVCT, nml QTc, negative axis -20 EKG Comparison: Other - Slower compared to earlier EKG Re-Evaluation - Re-Evaluation 1 Re-Evaluation Time: 17:07 Change: Unchanged - Pt has no CP. A-fib at a rate of 122 on monitor, on cardizem drip at 5mg/hr. Pt agrees to admission. Course/Dx - Course Course Of Treatment: Pt presents with asymptomatic new onset a-fib with RVR, of unknown duration, from Dr. Catalan's office. Upon initial evaluation pt had no response to carotid massage or valsalva. An EKG a-fib, rate 170's. A second EKG reveals the same but at a slower rate, 120's after diltiazem 20mg IV bolus given. Pt is placed on a Cardizem drip at 5mg/hr. Pt is given Potassium, Magnesium 2 gms IV, Tylenol, and IV fluids. A CXR is of no acute concern. Bloodwork is obtained. Dr. Yeh agrees to admit patient. While waiting to be moved to the floor, at 1726, nursing staff informed Dr. Pollard of a heart rate of 190. (Dr. Parish was in with another patient). Dr. Pollard checked the patient who is feeling fine but had an elevated heart rate while standing to urinate. Cardizem drip was increased to 10 mg/hr, and hospitalist, Mac, advised. - Diagnoses Differential Diagnosis/HQI/PQRI: Positive: Cardiomyopathy, Coronary Artery Disease, Hypokalemia, Myocarditis Provider Diagnoses: New onset atrial fibrillation, Atrial fibrillation with RVR, Hyponatremia, Hypomagnesemia, Poorly controlled diabetes mellitus, Transaminitis - Physician Notifications Discussed Care Of Patient With: Yoshi Yeh - hospitalist Time Discussed With Above Provider: 17:02 Instructed by Provider To: Admit As Inpatient - Critical Care Time Critical Care Time: 30-74 min - 45 mins Discharge - Sign-Out/Discharge Documenting (check all that apply): Discharge - admit - Discharge Plan Condition: Stable Disposition: ADMITTED TO [facility] - Billing Disposition and Condition Condition: STABLE Disposition: [facility] [place] The documentation as recorded by the Jennifer fierro Julia accurately reflects the service I personally performed and the decisions made by , Bebe Parish MD.
--- NOTE | 2017-07-30 20:57 | CONS ---
CC: Dr. Catalan, [facility] in [place], [place] CARDIOLOGY CONSULTATION: DATE OF CONSULTATION: 07/30/17 REFERRING PHYSICIAN: Mac Rodriguez NP. REASON FOR CARDIOLOGY CONSULTATION: Incidentally noted rapid atrial fibrillation. HISTORY OF PRESENT ILLNESS: The patient has a torn right knee anterior cruciate ligament and is being considered for right knee tendon repair. He went to his primary care physician's office today for preoperative evaluation and apparently was found to have rapid atrial fibrillation with which he was asymptomatic with heart rates reportedly up to 180 beats per minute. The patient himself denies chest pain, shortness of breath, or palpitations including while he is being admitted to [facility] on diltiazem drip with a heart rate of 130 BPM at rest. The patient is accompanied by his . PAST MEDICAL HISTORY: Includes: 1. Pancreatitis from alcohol overuse. 2. Hypertension. 3. Diabetes. 4. Hyperlipidemia. 5. GERD. OUTPATIENT MEDICATIONS: 1. Norvasc 5 mg once a day. 2. Crestor 20 mg once a day. 3. Metformin 500 mg p.o. b.i.d. 4. Losartan 100 mg p.o. daily. 5. Chlorthalidone 25 mg p.o. daily. 6. Protonix 40 mg p.o. daily. 7. Hydrochlorothiazide 12.5 mg p.o. daily. 8. Glimepiride 4 mg p.o. b.i.d. ALLERGIES TO MEDICATIONS: None. He denies shrimp, seafood, or dye allergy. FAMILY HISTORY: His father had a history of stroke, rectal cancer and diabetes. No family history of cardiac disease. SOCIAL HISTORY: The patient does not smoke cigarettes. He chews tobacco. He drinks 6 to 8 beers per day. He does not use illicit drugs. He has been for almost 15 years. He has a daughter from whom he is estranged. 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 REVIEW OF SYSTEMS: He denies personal history of stroke, cancer, vomiting up blood, coughing up blood, bright red blood per rectum, any stomach ulcers, renal calculi, cholelithiasis, asthma, emphysema, pneumonia, tuberculosis. He does have sleep apnea for which he uses CPAP. He does not use home oxygen. He has diabetes, hypertension. He denies prior VT, congestive heart failure, cardiac surgery, cardiac murmurs, palpitations, prior AF diagnosis. He denies psychiatric illnesses. He denies lupus, psoriasis, seizures, Parkinson's disease, myasthenia gravis. He has had partial thyroidectomy by his description greater than 20 years ago for a mass, which was benign and he does not take thyroid replacement. He denies kidney disorders, liver disorders, claudication symptoms, pulmonary emboli, deep venous thrombosis, peripheral arterial disease , peripheral edema, GERD symptoms, although he is on a proton pump inhibitor. He also has a history of hyperlipidemia. All other review of systems are negative x14 except as described above. PHYSICAL EXAM: Height 6 feet 1 inches, weight 233 pounds. Temperature is 99 degrees Fahrenheit, blood pressure is 149/104 to 113/88, pulse is 116 to 127, O2 saturation is 92%. General Exam: He is a somewhat plethoric-appearing gentleman, in no acute distress. HEENT: Show the cranium is normocephalic and atraumatic. He has moist mucosal membranes. Neck veins are not distended. There are no carotid bruits. Visible skin is warm and perfused. Affect is appropriate. He appears oriented. No significant kyphoscoliosis on back exam. Lungs are clear to auscultation. No wheezes, no rales. Cardiac Exam: S1, S2. Irregular rate. Tachycardic. No significant murmurs, rubs, or gallops. PMI is nondisplaced. Abdomen is soft, nondistended, appears benign. Extremities with no more than trivial peripheral edema. Pulses appear grossly intact. DIAGNOSTIC STUDIES/LAB DATA: EKG is reviewed from 07/30/17 at 1655, with the patient on diltiazem drip, which shows atrial fibrillation and 107 beats per minute with leftward axis. He had a prior EKG completed 07/30/17 at 1553, which showed rapid atrial fibrillation, heart rate reported at 170 beats per minute with nonspecific ST and T-wave changes. He had a 12-lead EKG completed on 03/17/11, at 10:19, which showed normal sinus rhythm. White blood cell count 7, hematocrit 45, platelet count 238,000. INR is 0.86. D- dimer less than 200. Sodium 125, potassium 3.6, chloride 85, bicarbonate 23 , BUN 10, creatinine 0.74. AST 50, ALT 65. Troponin 0.02. TSH 2.31. IMPRESSION: Mr. Fierro is a pleasant 46-year-old gentleman with a history of diabetes, hypertension, OCTAVIO and alcohol overuse, who presents with asymptomatic rapid atrial fibrillation. I have discussed this in detail with the patient and his , and I am making the following recommendations with which they are in agreement. RECOMMENDATIONS: 1. Agree with continuation of diltiazem drip as well as NOAC given CHADS2-VASC score of at least 2. 2. Agree with normalization of electrolytes and aim to keep potassium greater than 4 and magnesium greater than 2. 3. If the patient remains in rapid atrial fibrillation, plan for transesophageal echocardiogram-guided cardioversion, 08/02/17, a.m. 4. Watch for alcohol withdrawal. 5. Further management as per the hospitalist medicine service and I have discussed the case with Mac Rodriguez NP. Dear Mr. Mac Rodriguez, many thanks for asking me to participate in the cardiovascular consultative care of Mr. Fierro. Please do not hesitate to contact me if you have any questions or concerns regarding the patient's cardiovascular consultative care. [id number]/CPS #: [id number] MTDD
--- NOTE | 2017-07-30 21:55 | HP ---
CC: Dr. Catalan; Dr. Jordan* HISTORY AND PHYSICAL: DATE OF ADMISSION: 07/30/17 PRIMARY CARE PROVIDER: Dr. Catalan. ATTENDING PHYSICIAN WHILE IN THE HOSPITAL: Yaritza Stein DO* (report is dictated by Mac Rodriguez NP) CHIEF COMPLAINT: Irregular heartbeat. HISTORY OF PRESENT ILLNESS: Mr. Fierro is a 46-year-old male patient, who has a history of pancreatitis, EtOH abuse, history of diabetes, hypertension, hyperlipidemia. He was here about a year ago with significant pancreatitis requiring ICU care. He comes in today. He was at his PCP's for a routine preoperative evaluation. He was to undergo knee surgery next week. 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 The patient was brought immediately over to the [facility] Emergency Room for further evaluation. It appeared that he was in atrial fibrillation. In discussion with the patient, he states that he had no feeling that he was in this. He had no palpitations. He states he did wake up last night, had one episode of nausea with diarrhea. He states he feels hungry now. He is not having any abdominal pain. He states that he has no pain at all like he did when he had the pancreatitis. He denies any chest pain or any shortness of breath. He denies having any abdominal pain or any shortness of breath, no chest pain, no palpitations at all. He states that he feels fine. He does not feel lightheaded. He does not feel like he is going to faint. He came in to the ED, again was noted to be in the AFib with RVR. He was started on a diltiazem drip and we were asked to evaluate for admission. PAST MEDICAL HISTORY: Significant for: 1. Pancreatitis. 2. EtOH abuse. 3. Diabetes. 4. Hypertension. 5. Hyperlipidemia. PAST SURGICAL HISTORY: 1. He has had 5 right knee surgeries. 2. He has had an L4-L5 back surgery. 3. He has had shoulder surgeries bilaterally. MEDICATIONS: Home medications include: 1. Cozaar 100 mg p.o. daily. 2. Chlorthalidone 25 mg a day. 3. Protonix 40 mg a day. 4. Hydrochlorothiazide 12.5 mg daily. 5. Glimepiride 4 mg p.o. b.i.d. 6. Insulin degludec 19 units subcu q.a.m. 6. Norvasc 5 mg daily. 7. Crestor 20 mg daily. 8. Metformin 500 mg p.o. b.i.d. ALLERGIES: His allergies to medications include no known drug allergies. FAMILY HISTORY: His mother had a history of hypertension as did the father. His father did have a history of TIA. SOCIAL HISTORY: He does not smoke. He does drink about 6 to 8 cans of beers a day. His surrogate decision maker is his . REVIEW OF SYSTEMS: There is no documented fever. He denied having any significant weight change. There is no double vision. No ear discharge. He denies having any rhinorrhea. There is no sore throat. No thyroid enlargement. He denied having any chest pain. There is no orthopnea. He denies having any nocturnal dyspnea. Denies having any abdominal pain. He states he did have some nausea with diarrhea last night, one episode. He denies having any loss of consciousness. No pruritus. No skin ulcerations. Review of 14 systems completed. All others negative. PHYSICAL EXAMINATION GENERAL: Mr. Fierro is a 46-year-old male patient. He is sitting in the ED stretcher. He does not appear to be in any acute distress, appears to be well nourished, well developed. VITAL SIGNS: Blood pressure 132/94, pulse 128, respirations were 18, O2 saturation 95%, temperature 99.0. HEENT: Head: Atraumatic, normocephalic. Eyes: EOMs are intact. Sclerae anicteric and not pale. Throat: Oral mucosa appears to be dry. No oropharyngeal erythema. NECK: Supple. LUNGS: Clear to auscultation bilaterally. There is no wheezes, rales or rhonchi. HEART: Heart sounds S1, S2. Irregularly irregular rate. No murmurs, rubs or gallops. He is tachycardic at about 130 when I evaluated him. ABDOMEN: Soft, it was flat, it was nontender. His bowel sounds were present. EXTREMITIES: Pulses were 2+ throughout. No peripheral edema. He is moving all 4 extremities with 5/5 strength. NEUROLOGIC: He is awake, alert, and oriented x3. He has no gross focal deficits. His skin is intact. DIAGNOSTIC STUDIES/LAB DATA: WBC of 7.0, RBC of 5.02, hemoglobin of 16.2, hematocrit 45, platelet count of 238,000. INR 0.86, PTT of 33.3, D-dimer less than 200. His sodium is 125, potassium is 3.6, chloride of 85, bicarb 23. BUN 10, creatinine of 0.74, glucose was 278, lactic 1.3, calcium 9.9, mag 1.8, total bili 0.9, AST 50, ALT 65, alk phos 184, CK 6.8, troponin 0.02, BNP at 252 , albumin of 4.7, TSH is normal at 2.31. He had an EKG. His initial EKG shows atrial fibrillation, rate of [address] depression. When he does slow down, it shows atrial fibrillation, ST depression improved, but no ST elevations were noted. The previous EKG from 2010 showed a normal sinus rhythm. Chest x-ray again was read as negative. Old medical records were reviewed. ASSESSMENT AND PLAN: Mr. Fierro is a 46-year-old male patient with multiple medical problems, coming into the ED today, found to be in atrial fibrillation with rapid ventricular response. He will be admitted admitted under inpatient status to our ICU for: 1. Atrial fibrillation with rapid ventricular response. I did touch base with Dr. Jordan. Unfortunately, I do not know the time of onset for this. My plan would be to try to get his potassium as close to 4 as possible. I am going to go ahead and replace this. I will also get his magnesium higher by giving him IV mag, I have ordered 2 mg. I will go ahead and also put him on a diltiazem drip, give him Xarelto. He will be n.p.o. after midnight on Wednesday into Wednesday for transesophageal echocardiography-guided cardioversion on Wednesday. That was the recommendation of Dr. Jordan. I have also explained to him the importance of quitting the alcohol as this is probably contributing to his atrial fibrillation with rapid ventricular response. We will continue his Xarelto for the time being. He does have a CHADS score of 2. 2. Hypertension and diabetes. He would be a candidate for anticoagulation. At this point, again we will continue rate control with diltiazem drip with titration orders and I would try to get his electrolytes corrected and continue to follow. 3. EtOH abuse. I have ordered the WAM protocol and I am going to give him a banana bag. 4. Diabetes. I have ordered a lispro sliding scale. 5. Hypertension. He will be on the diltiazem drip. I have held his Norvasc at this point. I have also held his Cozaar and his diuretics. 6. Hyponatremia. This is probably multifactorial. I sent off urine osmolality , serum osmolality, and also we will add on a random cortisol, but I suspect this is probably secondary to the chlorthalidone and also the hydrochlorothiazide and alcoholism. We will hydrate him. We will follow this. We will continue to monitor. 7. Hypomagnesemia, probably secondary to EtOH use. We will replace. 8. Hypokalemia. His potassium is 3.6. I am going to replace this to try to get it near 4. 9. Hyperlipidemia. Continue statin therapy. 10. DVT prophylaxis. He is on Xarelto. 11. Code status. Full code. 12. Fluids, electrolytes and nutrition. He can have a heart-healthy diet and n.p.o. Wednesday and to Wednesday for possible transesophageal echocardiography- guided cardioversion. TIME SEEN: On admission was 60 minutes. Greater than half the time was spent face- to-face with the patient obtaining my history and physical, other half time was spent going over the plan of care with the patient and implementing plan of care. I discussed the plan of care with my attending, Dr. Stein, she is in agreement. MAC RODRIGUEZ, LUCIEN [id number]/[facility] #: [id number] ILA
[2017-07-30] MEDS: KCL 10 MEQ/50 ML IVPREMIX* 10 MEQ/50 ML BAG IV SCH ×2 (22:32→23:23)
[2017-07-30] MEDS: Rivaroxaban TAB(*) 10 MG PO SCH (22:40)
[2017-07-30] MEDS: Diltiazem DRIP* 100 MG/100 ML ADDV.BAG IVPB SCH (22:56)
[2017-07-30] MEDS: NS 0.9% 1000 ML* 1,000 ML IV SCH (23:59)
[2017-07-31 00:19] LABS: Urine Appearance Clear; Urine Blood 1+ (Negative); Urine Color Yellow; Urine Ketones 1+ (Negative); Urine Protein Negative (Negative); Urine Specific Gravity 1.009 (1.010-1.030); Urine Urobilinogen Negative (Negative)
[2017-07-31 05:28] LABS: ABS Basophils 0 10^3/ul (0-0.2); ABS Eosinophils 0 10^3/ul (0-0.6); ABS Lymphocytes 1.4 10^3/ul (1.0-4.8); ABS Monocytes 0.8 10^3/ul (0-0.8); ABS Neutrophils 3.3 10^3/ul (1.5-7.7); ABS Nucleated RBC 0 10^3/ul; Eosinophil % 0.3 % (0-6); Hematocrit 42 % (42-52); Hemoglobin 14.9 g/dl (14.0-18.0); Lymphocyte % 25.5 % (25-47); Mean Corpuscular HGB Conc 35 g/dl (31-36); Mean Corpuscular Hemoglobin 32 pg (27-31); Mean Corpuscular Volume 91 fL (80-94); Mean Platelet Volume 7.6 um3 (7.4-10.4); Nucleated Red Blood Cells % 0; Platelet Count 207 10^3/ul (150-450); Red Blood Count 4.62 10^6/ul (4.0-5.4); Red Cell Distribution Width 13 % (10.5-15); White Blood Count 5.5 10^3/ul (3.5-10.8)
[2017-07-31 05:39] LABS: INR 1.12 (0.77-1.02)
[2017-07-31 05:44] LABS: EGFR Non-African American 114.7 (>60)
[2017-07-31] MEDS: Diltiazem DRIP* 100 MG/100 ML ADDV.BAG IVPB SCH ×2 (06:28→06:30)
[2017-07-31] MEDS: Omeprazole CAP* 20 MG PO SCH (07:40)
[2017-07-31] MEDS: Insulin GLARGINE(*) 1 UNITS UNIT SUBCUT SCH (09:36)
[2017-07-31] MEDS: Thiamine TAB* 100 MG TAB PO SCH (09:37)
[2017-07-31] MEDS: Multivitamins/Minerals TAB PO SCH (09:37)
[2017-07-31] MEDS: CMC: Rosuvastatin (NF) 20 MG TAB PO SCH (09:37)
[2017-07-31] MEDS: Insulin LISPRO* 1 UNITS UNIT SUBCUT SCH ×3 (09:37→17:18)
[2017-07-31] MEDS: Folic Acid TAB* 1 MG PO SCH (09:37)
[2017-07-31] MEDS: NS 0.9% 1000 ML* 1,000 ML IV SCH (10:29)
[2017-07-31] MEDS: Diltiazem CD CAP* 180 MG PO SCH (11:01)
[2017-07-31] MEDS: Metoprolol Tartrate TAB* 50 mg PO SCH ×2 (11:01→20:19)
--- NOTE | 2017-07-31 11:07 | PN ---
Subjective Date of Service: 07/31/17 Interval History: No c/o. He had a 2 minute spell of lightheadedness before his pre-op physical yesterday. Objective Active Medications: Acetaminophen (Tylenol Tab*) 650 mg PO Q4H PRN PRN Reason: FEVER/PAIN Dextrose (D50w Syringe 50 Ml*) 12.5 gm IV PUSH .FOR FS < 60 - SS PRN PRN Reason: FS < 60 Diltiazem HCl (Cardizem Cd Cap*) 180 mg PO DAILY [facility] Folic Acid (Folvite Tab*) 1 mg PO DAILY [facility] Last Admin: 07/31/17 09:37 Dose: Not Given Diltiazem HCl (Cardizem Iv Advan*) 100 mg in 100 mls @ 5 mls/hr IVPB ED ONCE ONE PRN Reason: 5 MG/HR Stop: 07/31/17 11:59 Last Admin: 07/30/17 23:23 Dose: 5 mls/hr Sodium Chloride (Ns 0.9% 1000 Ml*) 1,000 mls @ 100 mls/hr IV PER RATE [facility] Last Admin: 07/31/17 10:29 Dose: 100 mls/hr Insulin Glargine (Lantus(*)) 19 units SUBCUT QAM [facility] Last Admin: 07/31/17 09:36 Dose: 19 units Insulin Human Lispro (Humalog*) 0 units SUBCUT AC [facility] PRN Reason: Protocol Last Admin: 07/31/17 09:37 Dose: Not Given Lorazepam (Ativan Tab(*)) 0 - 6 mg PO .PER [facility] PROTOCOL [facility] PRN Reason: Protocol Metoprolol Tartrate (Lopressor Tab*) 50 mg PO Q12HR [facility] Multivitamins/Minerals (Theragran/Minerals Tab*) 1 tab PO DAILY [facility] Last Admin: 07/31/17 09:37 Dose: Not Given Omeprazole (Prilosec Cap*) 20 mg PO DAILY@0730 [facility] Last Admin: 07/31/17 07:40 Dose: 20 mg Ondansetron HCl (Zofran Inj*) 4 mg IV Q6H PRN PRN Reason: NAUSEA Rivaroxaban (Xarelto(*)) 20 mg PO DAILY@1700 [facility] Last Admin: 07/30/17 22:40 Dose: 20 mg Rosuvastatin Calcium (Crestor (Nf)) 20 mg PO DAILY [facility] Last Admin: 07/31/17 09:37 Dose: Not Given Thiamine HCl (Vitamin B-1 Tab*) 100 mg PO DAILY [facility] Last Admin: 07/31/17 09:37 Dose: Not Given Vital Signs - 8 hr 07/31/17 07/31/17 07/31/17 03:30 04:00 04:04 Temperature 97.8 F Pulse Rate 79 82 Respiratory 14 12 Rate Blood Pressure 104/65 103/68 (mmHg) O2 Sat by Pulse 95 95 Oximetry 07/31/17 07/31/17 07/31/17 04:31 05:00 05:01 Temperature Pulse Rate 69 76 72 Respiratory 12 14 12 Rate Blood Pressure 84/57 91/62 (mmHg) O2 Sat by Pulse 95 93 94 Oximetry 07/31/17 07/31/17 07/31/17 05:30 06:00 06:01 Temperature Pulse Rate 79 83 Respiratory 11 14 14 Rate Blood Pressure 109/78 (mmHg) O2 Sat by Pulse 92 95 Oximetry 07/31/17 07/31/17 07/31/17 06:31 07:00 07:01 Temperature 98.0 F Pulse Rate 84 82 90 Respiratory 12 15 15 Rate Blood Pressure 100/62 114/67 (mmHg) O2 Sat by Pulse 96 93 95 Oximetry 07/31/17 07/31/17 07/31/17 07:30 07:47 08:00 Temperature 98.0 F Pulse Rate 83 71 Respiratory 21 14 15 Rate Blood Pressure 110/77 107/71 (mmHg) O2 Sat by Pulse 95 94 Oximetry 07/31/17 07/31/17 07/31/17 08:30 09:00 09:30 Temperature Pulse Rate 80 72 84 Respiratory 17 15 14 Rate Blood Pressure 104/60 113/77 114/66 (mmHg) O2 Sat by Pulse 89 96 96 Oximetry 07/31/17 10:00 Temperature Pulse Rate 77 Respiratory 14 Rate Blood Pressure 100/70 (mmHg) O2 Sat by Pulse 96 Oximetry Oxygen Devices in Use Now: None Appearance: Alert, partly up in ICU bed. In good spirits. Looks comfortable. Eyes: No Scleral Icterus Respiratory: Symmetrical Chest Expansion and Respiratory Effort, Clear to Auscultation, Clear to Percussion Cardiovascular: NL Sounds; No Murmurs; No JVD, No Edema, - - irreg Extremities: No Edema, No Clubbing, Cyanosis, - Skin: No Nodules or Sclerosis, - - teagan complexion Neurological: Alert and Oriented x 3, NL Sensation Result Diagrams: 07/31/17 05:15 07/31/17 05:15 Microbiology and Other Data: Microbiology 07/30/17 19:00 Nasal Screen MRSA (PCR)(ALEENA) - Final Nasal Mrsa Not Detected Assess/Plan/Problems-Billing Assessment: - Patient Problems (1) Atrial fibrillation Current Visit: Yes Status: Acute Code(s): I48.91 - UNSPECIFIED ATRIAL FIBRILLATION SNOMED Code(s): 82645318 Comment: Change to po diltiazem and metoprolol, consider switching to latter alone. Continue rivaroxaban. (2) Diabetes Current Visit: Yes Status: Acute Code(s): E11.9 - TYPE 2 DIABETES MELLITUS WITHOUT COMPLICATIONS SNOMED Code(s): 86924628 Comment: Continue Lantus,SSI, hold metformin, glimepiride. (3) Sleep apnea Current Visit: Yes Status: Acute Code(s): G47.30 - SLEEP APNEA, UNSPECIFIED SNOMED Code(s): 01826500 Comment: Pt will bring in his CPAP. (4) Alcohol abuse Current Visit: No Status: Acute Code(s): F10.10 - ALCOHOL ABUSE, UNCOMPLICATED SNOMED Code(s): 31655267 Comment: Hx noted. No signs of withdrawal 07/31. (5) HTN (hypertension) Current Visit: No Status: Acute Code(s): I10 - ESSENTIAL (PRIMARY) HYPERTENSION SNOMED Code(s): 06560307 Comment: Continue diltiazem, metoprolol. Hold amlodipine. (6) Hyperlipemia Current Visit: Yes Status: Acute Code(s): E78.5 - HYPERLIPIDEMIA, UNSPECIFIED SNOMED Code(s): 69148537
[2017-07-31] MEDS: Rivaroxaban TAB(*) 10 MG PO SCH (17:18)
[2017-08-01 07:39] VITALS: BP 110/71
[2017-08-01] MEDS: CMC: Rosuvastatin (NF) 20 MG TAB PO SCH (08:45)
[2017-08-01] MEDS: Insulin LISPRO* 1 UNITS UNIT SUBCUT SCH (08:45)
[2017-08-01] MEDS: Diltiazem CD CAP* 180 MG PO SCH (08:45)
[2017-08-01] MEDS: Multivitamins/Minerals TAB PO SCH (08:45)
[2017-08-01] MEDS: Thiamine TAB* 100 MG TAB PO SCH (08:45)
[2017-08-01] MEDS: Insulin GLARGINE(*) 1 UNITS UNIT SUBCUT SCH (08:45)
[2017-08-01] MEDS: Folic Acid TAB* 1 MG PO SCH (08:45)
[2017-08-01] MEDS: Metoprolol Tartrate TAB* 50 mg PO SCH (08:45)
[2017-08-01] MEDS: Omeprazole CAP* 20 MG PO SCH (08:45)
[2017-08-01] MEDS ORDERED: Insulin GLARGINE(*) 1 UNITS UNIT SUBCUT ONE (09:13)
--- NOTE | 2017-08-01 10:35 | PN ---
Progress Note - Progress Note Date of Service: 08/01/17 Note: Time spent on discharge 50 minutes.
--- NOTE | 2017-08-01 13:29 | DS ---
CC: Dr. Gloria Catalan; Dr. Jordan DISCHARGE SUMMARY: DATE OF ADMISSION: DATE OF DISCHARGE: 08/01/17 HISTORY OF PRESENT ILLNESS: This 46-year-old man presented with an irregular heartbeat. He went for his preop evaluation. He is scheduled to have elective knee surgery next week when his preop EKG, his heart rate was about 180, and he was referred to the emergency room. He was in atrial fibrillation. He really had no palpitations and otherwise felt well. The patient got potassium, intravenous magnesium, and intravenous diltiazem. He was monitored in the ICU at first on 07/31/17. He spontaneously converted to normal sinus rhythm. He felt quite well. I note his TSH was within the normal range as were 3 troponin levels. The patient was started on rivaroxaban as well. The patient will follow up with Dr. Jordan. FINAL DIAGNOSES: 1. Atrial fibrillation with spontaneous conversion to normal sinus rhythm. 2. Hypertension. 3. Diabetes. 4. History of alcohol abuse. 5. Hyponatremia likely related to his thiazide diuretics. 6. Hyperlipidemia. DISCHARGE MEDICATIONS: 1. Metoprolol tartrate 50 mg b.i.d. 2. Rivaroxaban 20 mg daily. 3. Thiamine 100 mg daily. 4. Rosuvastatin 20 mg daily. 5. Metformin ER 500 mg b.i.d. 6. Insulin degludec 19 units every morning. 7. Pantoprazole 40 mg daily. 8. Glimepiride 4 mg b.i.d. [id number]/[facility] #: [id number] [facility]
[2017-08-02] MEDS ORDERED: Insulin GLARGINE(*) 1 UNITS UNIT SUBCUT SCH (09:00)
== END 2017-08-01 10:30 | disposition home or self-care (01) | DRG 309 ==
LOC: ED 15:45 → ICU 17:25 → MEDTELE 07-31 14:42
PROVIDERS: ADMIT Internal Medicine; ATTEND Internal Medicine
DX: I48.91 Unspecified atrial fibrillation (principal); E87.1 Hypo-osmolality and hyponatremia; I10 Essential (primary) hypertension; E11.9 Type 2 diabetes mellitus without complications; E78.5 Hyperlipidemia, unspecified; F10.11 Alcohol abuse, in remission; E83.42 Hypomagnesemia; E87.6 Hypokalemia; G47.30 Sleep apnea, unspecified; F10.10 Alcohol abuse, uncomplicated; F17.220 Nicotine dependence, chewing tobacco, uncomplicated; Z79.899 Other long term (current) drug therapy; Z79.84 Long term (current) use of oral hypoglycemic drugs; Z79.4 Long term (current) use of insulin; Z82.3 Family history of stroke; Z82.49 Family history of ischemic heart disease and other diseases of the circulatory system; Z80.0 Family history of malignant neoplasm of digestive organs
CPT/HCPCS: 36415; 71045; 80048; 80053; 80061; 80076; 81003; 81015; 82533; 82550; 82553; 82570; 83036; 83605; 83735; 83880; 83930; 83935; 84300; 84436; 84443; 84484; 85025; 85379; 85610; 85730; 87086; 87641; 93005; 99284; A9270-GY; J3411; J3475; J3480

== ENCOUNTER 2017-08-30 06:14 | Inpatient (IN) | payer OTHER ==
[2017-08-30] MEDS ORDERED: Metoprolol Tartrate IV* 1 MG/ML 5 ML VIAL IV ONE (06:32)
[2017-08-30] MEDS ORDERED: Metoclopramide IV* 5 MG/ML 2 ML VIAL IV ONE (06:56)
[2017-08-30] MEDS ORDERED: Morphine VIAL* 4 MG/ML VIAL (1 ml vial) IV ONE (06:56)
[2017-08-30 07:10] LABS: EGFR Non-African American 97.5 (>60)
[2017-08-30 07:27] LABS: ABS Basophils 0 10^3/ul (0-0.2); ABS Eosinophils 0 10^3/ul (0-0.6); ABS Monocytes 0.8 10^3/ul (0-0.8); ABS Neutrophils 7.6 10^3/ul (1.5-7.7); ABS Nucleated RBC 0 10^3/ul; Eosinophil % 0.4 % (0-6); Hematocrit 47 % (42-52); Hemoglobin 16.3 g/dl (14.0-18.0); Lymphocyte % 10.1 % (25-47); Mean Corpuscular HGB Conc 35 g/dl (31-36); Mean Corpuscular Hemoglobin 33 pg (27-31); Mean Corpuscular Volume 93 fL (80-94); Mean Platelet Volume 7.9 um3 (7.4-10.4); Nucleated Red Blood Cells % 0.2; Platelet Count 228 10^3/ul (150-450); Red Blood Count 5.03 10^6/ul (4.0-5.4); Red Cell Distribution Width 13 % (10.5-15); White Blood Count 9.4 10^3/ul (3.5-10.8)
[2017-08-30] MEDS ORDERED: NS 0.9% 1000 ML* 2,000 ML IV ONE (08:03)
--- NOTE | 2017-08-30 08:14 | ED ---
Abdominal Pain/Male - HPI Summary HPI Summary: Patient is a 46-year-old male with a history of alcohol-induced pancreatitis presenting to the ED with mid abdominal pain, nausea, vomiting, diarrhea 3 days. He states his last alcohol intake was Wednesday evening, stating he had " 2 beers." at bedside states he drinks alcohol daily. History of pancreatitis approximately 1 year ago and was hospitalized for one week. Also history of hypertension and has not taken his medications today. Denies any hematemesis, melena. He was seen approximately 1 month ago after he had a GI bug, states he vomited so hard that put him into A. fib. He was started on Xarelto and remains on that today. He denies any headache, visual changes, recent illness, fevers, sweats, chills. - History of Current Complaint Chief Complaint: EDAbdPain Stated Complaint: ABD PAIN Time Seen by Provider: 08/30/17 06:23 Hx Obtained From: Patient Onset/Duration: Sudden Onset Timing: Constant Severity Initially: Severe Severity Currently: Severe Pain Intensity: 8 Pain Scale Used: 0-10 Numeric Location: Diffuse, Epigastric, Umbilical Radiates: No Character: Sharp Aggravating Factor(s): Nothing Alleviating Factor(s): Nothing Associated Signs And Symptoms: Positive: Nausea, Vomiting, Diarrhea. Negative: Diaphoresis, Fever, Cough, Chest Pain, Dizzy, Back Pain, Blood in Stool, Urinary Symptoms, Decreased Appetite, Penile Discharge - Risk Factors Testicular Torsion: Negative Cardiac Risk Factors: Hypertension - Allergies/Home Medications Allergies/Adverse Reactions: Allergies Allergy/AdvReac Type Severity Reaction Status Date / Time No Known Allergies Allergy Verified 08/30/17 06:18 PMH/Surg Hx/FS Hx/Imm Hx Previously Healthy: Yes Endocrine/Hematology History: Reports: Hx Diabetes Cardiovascular History: Reports: Hx Hypercholesterolemia, Hx Hypertension Denies: Hx Pacemaker/ICD Respiratory History: Reports: Hx Sleep Apnea GI History: Reports: Other GI Disorders - pancreatitis secondary to alcoholism History: Denies: Hx Renal Disease Musculoskeletal History: Reports: Other Musculoskeletal History - right knee ACL , infection, spine sx, shoulder sx Sensory History: Reports: Hx Contacts or Glasses Denies: Hx Hearing Aid Opthamlomology History: Reports: Hx Contacts or Glasses Psychiatric History: Reports: Hx Substance Abuse - alcohol, tobacco Denies: Hx Panic Disorder - Surgical History Surgery Procedure, Year, and Place: RIGHT KNEE ORTHO X 4 ; BACK 2000 ; LEFT SHOULDER 2011 ; RIGHT SHOULDER 11/22/2015 Hx Anesthesia Reactions: No - Immunization History Date of Tetanus Vaccine: up to date Date of Influenza Vaccine: not yet Hx Pertussis Vaccination: No Immunizations Up to Date: Unable to Obtain/Confirm Infectious Disease History: No Infectious Disease History: Denies: Traveled Outside the [place] in Last 30 Days - Family History Known Family History: Positive: Hypertension, Diabetes Negative: Cardiac Disease - Social History Occupation: Employed Full-time Lives: With Family Alcohol Use: Daily Alcohol Amount: 8 BEERS DAILY Hx Substance Use: No Substance Use Type: Reports: None Substance Use Comment - Amount & Last Used: 04/13/16 Hx Tobacco Use: No Smoking Status (MU): Never Smoked Tobacco Type: Smokeless Tobacco Amount Used/How Often: up to 2 cans a day Length of Time of Smoking/Using Tobacco: 30 years Have You Smoked in the Last Year: No Review of Systems Constitutional: Negative Negative: Fever, Chills, Fatigue, Skin Diaphoresis ENT: Negative Cardiovascular: Negative Negative: Palpitations, Chest Pain Negative: Shortness Of Breath, Cough Positive: Abdominal Pain, Vomiting, Diarrhea, Nausea Genitourinary: Negative Positive: no symptoms reported, see HPI Skin: Negative Neurological: Negative All Other Systems Reviewed And Are Negative: Yes Physical Exam Triage Information Reviewed: Yes Vital Signs On Initial Exam: Initial Vitals Temp Pulse Resp BP Pulse Ox 97.5 F 90 20 162/124 98 08/30/17 06:15 08/30/17 06:15 08/30/17 06:15 08/30/17 06:15 08/30/17 06:15 Vital Signs Reviewed: Yes Appearance: Positive: Ill-Appearing Skin: Positive: Other - Erythematous face, at baseline Head/Face: Positive: Normal Head/Face Inspection Eyes: Positive: EOMI, ARANZA, Conjunctiva Clear Neck: Positive: Supple, No Lymphadenopathy Respiratory/Lung Sounds: Positive: Clear to Auscultation, Breath Sounds Present Cardiovascular: Positive: Normal, RRR, Pulses are Symmetrical in both Upper and Lower Extremities Abdomen Description: Positive: Nontender Musculoskeletal: Positive: Normal, Strength/ROM Intact Neurological: Positive: Sensory/Motor Intact, Alert, Oriented to Person Place, Time Psychiatric: Positive: Normal, Affect/Mood Appropriate Diagnostics - Vital Signs Vital Signs Temp Pulse Resp BP Pulse Ox 08/30/17 07:11 24 08/30/17 07:00 74 14 98 08/30/17 06:41 86 14 97 08/30/17 06:40 78 14 146/104 97 08/30/17 06:15 97.5 F 90 20 162/124 98 - Laboratory Lab Results: Lab Results 08/30/17 08/30/17 08/30/17 Range/Units 06:36 06:36 06:36 WBC 9.4 (3.5-10.8) 10^3/ul RBC 5.03 (4.0-5.4) 10^6/ul Hgb 16.3 (14.0-18.0) g/dl Hct 47 (42-52) % MCV 93 (80-94) fL MCH 33 H (27-31) pg MCHC 35 (31-36) g/dl RDW 13 (10.5-15) % Plt Count 228 (150-450) 10^3/ul MPV 7.9 (7.4-10.4) um3 Neut % (Auto) 81.0 (38-83) % Lymph % (Auto) 10.1 L (25-47) % [place] % (Auto) 8.2 H (0-7) % Eos % (Auto) 0.4 (0-6) % Baso % (Auto) 0.3 (0-2) % Absolute Neuts (auto) 7.6 (1.5-7.7) 10^3/ul Absolute Lymphs (auto) 1.0 (1.0-4.8) 10^3/ul Absolute Monos (auto) 0.8 (0-0.8) 10^3/ul Absolute Eos (auto) 0 (0-0.6) 10^3/ul Absolute Basos (auto) 0 (0-0.2) 10^3/ul Absolute Nucleated RBC 0 10^3/ul Nucleated RBC % 0.2 Sodium 135 L (139-145) mmol/L Potassium 3.9 (3.5-5.0) mmol/L Chloride 97 L (101-111) mmol/L Carbon Dioxide 25 (22-32) mmol/L Anion Gap 13 H (2-11) mmol/L BUN 9 (6-24) mg/dL Creatinine 0.84 (0.67-1.17) mg/dL Est GFR ( Amer) 125.4 (>60) Est GFR (Non-Af Amer) 97.5 (>60) BUN/Creatinine Ratio 10.7 (8-20) Glucose 200 H (70-100) mg/dL Lactic Acid 1.4 (0.5-2.0) mmol/L Calcium 10.2 (8.6-10.3) mg/dL Magnesium 2.0 (1.9-2.7) mg/dL Total Bilirubin 1.50 H (0.2-1.0) mg/dL AST 32 (13-39) U/L ALT 33 (7-52) U/L Alkaline Phosphatase 64 (34-104) U/L C-Reactive Protein 5.59 H (< 5.00) mg/L Total Protein 8.3 (6.4-8.9) g/dL Albumin 4.9 (3.2-5.2) g/dL Globulin 3.4 (2-4) g/dL Albumin/Globulin Ratio 1.4 (1-3) Amylase 130 H (29-103) U/L Lipase 869 H (11.0-82.0) U/L Result Diagrams: 08/30/17 06:36 08/30/17 06:36 Lab Statement: Any lab studies that have been ordered have been reviewed, and results considered in the medical decision making process. Abdominal Pain Fem Course/Dx - Course Course Of Treatment: During the course of treatment, the patient is evaluated for possible acute pancreatitis flare. He was hospitalized one year ago for same. He endorses pain to his mid abdomen with nausea, vomiting, diarrhea. He states this feels similar to when he had pancreatitis one year ago. He continues to drink alcohol. Last alcohol use was 2 days ago per patient. at bedside states he drinks daily. Labs obtained which show an elevated lipase at 869. Amylase 130. Labs are otherwise unremarkable. He is rehydrated at 10ml/kg fluid resuscitation with normal saline. He is given Zofran and morphine. Called hospitalist, Dr. Davis, at 8:30 AM who agrees to come see patient and admit for acute pancreatitis. EKG normal sinus rhythm. - Diagnoses Provider Diagnoses: Pancreatitis, alcoholic, acute - Provider Notifications Discussed Care Of Patient With: Rosario Davis Instructed by Provider To: Admit As Inpatient Discharge - Sign-Out/Discharge Documenting (check all that apply): Discharge/Admit/Transfer - Discharge Plan Condition: Fair Disposition: ADMITTED TO [facility] Referrals: Gloria Catalan MD [Primary Care Provider] - - Billing Disposition and Condition Condition: FAIR Disposition: [facility]
[2017-08-30] MEDS ORDERED: Morphine VIAL* 4 MG/ML VIAL (1 ml vial) IV PRN ×2 (08:29→10:12)
[2017-08-30] MEDS ORDERED: PROCHLORPERAZINE INJ 5 MG/ML 2 ML VIAL IV PRN (08:29)
[2017-08-30] MEDS ORDERED: HYDROmorphone INJ* 2 MG/ML CARPUJECT SYRINGE IV SLOW PU PRN ×2 (09:43→13:04)
[2017-08-30] MEDS ORDERED: Metoprolol Tartrate TAB* 50 mg PO ONE (09:46)
[2017-08-30] MEDS ORDERED: Dextrose 50% Syringe 50 ML* 25 GM/50 ML SYRINGE IV PUSH PRN (09:46)
[2017-08-30] MEDS ORDERED: Ondansetron INJ* 2 MG/ML VIAL IV PRN (09:53)
[2017-08-30] MEDS ORDERED: Thiamine IV* 100 MG/ML 2 ML VIAL IM ONE (09:55)
[2017-08-30] MEDS ORDERED: LORazepam INJ* 2 MG/ML 1 ML VIAL IV PUSH SCH (10:00)
[2017-08-30] MEDS ORDERED: NS 0.9% 1000 ML* 1,000 ML IV SCH (10:00)
[2017-08-30] MEDS ORDERED: Iodixanol* (CONTRAST) 320 MG/ML 100 ML SDV IV SCH (10:09)
[2017-08-30] MEDS: Metoprolol Tartrate TAB* 50 mg PO SCH ×2 (10:22→20:06)
[2017-08-30] MEDS: Insulin LISPRO* 1 UNITS UNIT SUBCUT SCH ×4 (10:23→22:48)
[2017-08-30] MEDS: NS 0.9% 1000 ML* 1,000 ML IV SCH ×2 (10:33→17:42)
--- NOTE | 2017-08-30 12:37 | HP ---
HISTORY AND PHYSICAL: DATE OF ADMISSION: 08/30/17 PROVIDER: Mariah Marie NP ATTENDING PHYSICIAN: Dr. Arredondo * (report dictated by Mariah Marie NP). PRIMARY CARE PROVIDER: Tiffanie Ruiz. CHIEF COMPLAINT: Abdominal pain. HISTORY OF PRESENT ILLNESS: Mr. Fierro is a 46-year-old male with a past medical history of pancreatitis with hospitalization in April 2016, history of EtOH abuse, insulin-dependent type 2 diabetes, hypertension, hyperlipidemia, and recent diagnosis of atrial fibrillation approximately a month ago with hospitalization, who presents today to the emergency department with the complaint of abdominal pain starting last night around 3 a.m. The patient reports that starting 3 days ago on Wednesday, he developed diarrhea and nausea in which he thought he had GI illness. He reports approximately 10 loose stools that day. He was able to go about his activities. Then he reports yesterday, he only had diarrhea 3 times in the morning and started to feel better throughout the day but felt that he had a stomach ache, however, he reports he continued to feel better, went to bed last night, feeling okay, then woke up at 3 a.m. with severe upper abdominal diffuse pain and nausea, which brought him to the emergency department this morning. He reports no further diarrhea since yesterday morning. Currently denies nausea. He reports he never vomited. No fevers or chills. Only complaints today is upper diffuse, sharp and cramping abdominal pain, currently reporting his pain to be an 8/10, it comes in waves. He reports since his hospitalization in April 2016, in which he was hospitalized for acute pancreatitis, he has had no further episodes of pancreatitis and has no history of chronic pancreatitis. He reports that he drinks approximately 12 beers a day. Denies history of withdrawal seizures. He is currently pending a right knee surgery, which will be his fifth surgery on that knee in which he was just cleared by Cardiology last week with a stress test echo and he reports he did undergo an abdominal/kidney ultrasound last week which he doesn't know the results of. He was hospitalized last month with tachycardia in which he was diagnosed with new atrial fibrillation and started on metoprolol and Xarelto, then followed up with [facility] as an outpatient. Currently, his knee surgery is pending and he does not have a date. The patient reports that he only takes acetaminophen to control his knee pain. PAST MEDICAL HISTORY: 1. Atrial fibrillation, new diagnosis in July 2017, currently on Xarelto. 2. History of pancreatitis, April 2016. 3. Alcohol abuse, current. 4. Hyperlipidemia. 5. Hypertension. 6. Type 2 diabetes, insulin dependent. 7. GERD. MEDICATIONS: Current Home Medications: 1. Thiamine 100 mg p.o. daily. 2. Crestor 20 mg p.o. daily. 3. Xarelto 20 mg p.o. daily. 4. Protonix 40 mg p.o. daily. 5. Metoprolol tartrate 50 mg p.o. b.i.d. 6. Metformin 500 mg p.o. b.i.d. 7. Insulin Tresiba FlexTouch 19 units subcu q.a.m. 8. Glimepiride 4 mg p.o. b.i.d. ALLERGIES: No known allergies. FAMILY HISTORY: His father and mother have a history of hypertension. Father has a history of type 2 diabetes. SOCIAL HISTORY: Patient reports he drinks a 12-pack of beer a day. 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 He is and has no children. His , Kalie Powers, is the healthcare proxy. Her cellphone is [phone]. REVIEW OF SYSTEMS: A 14-point review of systems was performed. All the pertinent positives and negatives are mentioned in the history of present illness, otherwise negative. PHYSICAL EXAMINATION GENERAL APPEARANCE: A 46-year-old, obese male, sitting up on the emergency department stretcher. Alert and oriented x3, appears to be in [id number] pain distress. VITAL SIGNS: Temperature 98.7, heart rate 93, respirations 18, O2 sat 98% on room air, blood pressure 161/104. HEENT: Head is normocephalic and atraumatic. Pupils equal and reactive to light. Oropharynx is dry. Moist mucous membranes. NECK: Supple. LUNGS: Clear to auscultation bilaterally. Good aeration throughout. CARDIAC: S1 and S2. Regular rate and rhythm. No murmur, rub, or gallop appreciated. ABDOMEN: Obese, distended, soft, tender in the left upper quad. No rebound tenderness. No guarding. EXTREMITIES: No clubbing, cyanosis or edema. NEURO: Cranial nerves II through XII are grossly intact. No focal deficits noted. MUSCULOSKELETAL: Strength is 5/5 throughout. Full range of motion in all extremities. LABORATORY DATA AND DIAGNOSTIC STUDIES: Sodium 135, potassium 3.9, chloride 97 , carbon dioxide 25, anion gap 13, BUN 9, creatinine 0.84, glucose 200, lactic acid 1.4, calcium 10.2, magnesium 2.0. Total bilirubin 1.50, AST 32, ALT 33, total protein 8.3, albumin 4.9, amylase 130, lipase 869. WBC is 9.4, Hgb 16.3, HCT 47, MCV 93, MCH 33, MCHC 35, RDW 13, platelet count 228. EKG: Sinus rhythm with rate of 82. No acute ST changes. ASSESSMENT AND PLAN: Mr. Fierro is a 46-year-old male with a past medical history of acute pancreatitis in 2017 secondary to EtOH abuse; history of current alcohol abuse; atrial fibrillation, on Xarelto; hypertension; hyperlipidemia; insulin- dependent type 2 diabetes, who presents to the emergency department today with abdominal pain, found to have acute pancreatitis. 1. Acute pancreatitis. At this point, the pancreatitis appears to be mild. No signs of sepsis at this point. He received 3 L normal saline in the emergency department and will continue him on normal saline 175 mL an hour. Due to that he is very tender in his left upper quad. I will obtain CT abdomen and pelvis with contrast. N.p.o. Zofran p.r.n. Dilaudid p.r.n. Recheck CMP, lipase, and amylase in the morning. 2. EtOH abuse. Patient reports drinking 12 beers a day. He denies history of seizures. We will place the patient on [facility] protocol with Ativan p.r.n. Strongly recommended to the patient alcohol cessation. We will order social work consult. Continue thiamine and start on multivitamin and folic acid. 3. Hypertension. Patient is hypertensive in the emergency department. He did not take his morning metoprolol, which I will plan to give now at this time. We will continue to follow blood pressures closely. 4. Insulin-dependent type 2 diabetes. Hold metformin and glimepiride. Fingerstick blood glucose monitoring q. 4 hours with lispro sliding scale. At this point, I am going to hold his long-acting insulin due to his n.p.o. and will continue to monitor closely and titrate as needed. 5. Atrial fibrillation. New diagnosis approximately 1 month ago. He is currently in normal sinus rhythm on his EKG in the emergency department and on exam. We will give his metoprolol 50 mg p.o. morning dose now as he did not take his morning meds and continue metoprolol tartrate 50 mg p.o. b.i.d. Continue Xarelto at this time. If he starts to clinically decline, we will hold his Xarelto and start him on Lovenox b.i.d. but at this time, the pancreatitis appears to be mild and will continue Xarelto. 6. Gastroesophageal reflux disease. Continue PPI. 7. DVT prophylaxis, on Xarelto. 8. Code status. Full code. HOSPITAL STATUS: Inpatient. HEALTHCARE PROXY: Kalie Powers, . TIME SPENT: Approximately 60 minutes was spent on this history and physical. MARIAH MARIE, LABOR DELIVERY RN [id number]/CPS #: [id number] ILA
[2017-08-30] MEDS ORDERED: diPHENhydraMINE IV* 50 MG/ML 1 ml VIAL (BENADRYL) SLOW PUSH ONE (14:12)
[2017-08-30] MEDS ORDERED: methylPREDNISolone SOD 40 MG* 1 ML VIAL IV ONE (14:12)
--- NOTE | 2017-08-30 14:21 | RAD ---
CLINICAL HISTORY: Pancreatitis COMPARISON: April 19, 2016 TECHNIQUE: Multiple contiguous axial CT scans were obtained of the abdomen and pelvis after the administration of intravenous contrast. Coronal and sagittal multiplanar reformations are submitted for review. Oral contrast was administered. Delayed images were obtained through the abdomen and pelvis. FINDINGS: LUNG BASES: The lung bases are clear. LIVER: The liver is diffusely low in attenuation compared to the spleen. There are no focal hepatic parenchymal masses. The liver measures 19 cm in long axis. BILE DUCTS: There is no intrahepatic or extrahepatic biliary dilatation. GALLBLADDER: The gallbladder is normal, without pericholecystic inflammatory change. PANCREAS: There is persistent but somewhat improved peripancreatic inflammatory change, now most pronounced along the head of the pancreas. There is a loculated fluid collection measuring 3.7 x 1.4 x 1.4 cm in size best seen on axial image 41 suggestive of a pseudocyst. The tail of the pancreas is atrophic SPLEEN: Normal in size and appearance. UPPER GI TRACT: Evaluation of the gastrointestinal tract is limited by incomplete gastric distention. The upper GI tract is unremarkable. SMALL BOWEL AND MESENTERY: The small bowel is normal in contour, course, and caliber. There is no obstruction or dilatation. COLON: The colon is normal in contour, course, caliber. There is no pericolonic inflammatory change. ADRENALS: Normal bilaterally. KIDNEYS: The kidneys are normal in shape, size, contour, and axis. There is no hydronephrosis or nephrolithiasis. BLADDER: The bladder is smooth in contour. PELVIC ORGANS: The prostate gland is normal. The seminal vesicles are symmetric. AORTA: The aorta is normal. IVC: Unremarkable LYMPH NODES: There is no lymphadenopathy by size criteria. ABDOMINAL WALL: There is no evidence for abdominal wall hernia. BONES AND SOFT TISSUES: There are mild diffuse degenerative changes. OTHER: None IMPRESSION: 1. PERSISTENT, BUT IMPROVING, PERIPANCREATIC INFLAMMATORY CHANGE CONSISTENT WITH THE HISTORY OF PANCREATITIS. 2. THERE IS A LOCULATED FLUID COLLECTION SUGGESTIVE OF A PSEUDOCYST AT THE LEVEL OF THE PANCREATIC HEAD MEASURING UP TO 3.7 CM. 3. HEPATOMEGALY WITH FATTY INFILTRATION OF THE LIVER.
[2017-08-30] MEDS: hydrALAZINE IV* 20 MG/ML VIAL IV SLOW PU PRN (14:43)
[2017-08-30] MEDS: Pantoprazole IV* 40 MG IV SCH (14:43)
[2017-08-30] MEDS: Morphine VIAL* 4 MG/ML VIAL (1 ml vial) IV PRN ×2 (15:12→22:10)
[2017-08-30 16:36] LABS: Urine Appearance Clear; Urine Blood 1+ (Negative); Urine Color Yellow; Urine Ketones 1+ (Negative); Urine Protein 1+(30 mg/dL) (Negative); Urine Specific Gravity 1.044 (1.010-1.030); Urine Urobilinogen Negative (Negative)
[2017-08-30] MEDS: Rivaroxaban TAB(*) 20 MG TAB PO SCH (17:48)
[2017-08-31] MEDS: NS 0.9% 1000 ML* 1,000 ML IV SCH ×4 (00:43→20:59)
[2017-08-31] MEDS: Insulin LISPRO* 1 UNITS UNIT SUBCUT SCH ×6 (02:11→21:41)
[2017-08-31 06:05] LABS: ABS Basophils 0 10^3/ul (0-0.2); ABS Eosinophils 0 10^3/ul (0-0.6); ABS Lymphocytes 1.3 10^3/ul (1.0-4.8); ABS Monocytes 0.7 10^3/ul (0-0.8); ABS Neutrophils 4.5 10^3/ul (1.5-7.7); ABS Nucleated RBC 0 10^3/ul; Eosinophil % 0.7 % (0-6); Hematocrit 37 % (42-52); Hemoglobin 12.9 g/dl (14.0-18.0); Lymphocyte % 20.2 % (25-47); Mean Corpuscular HGB Conc 34 g/dl (31-36); Mean Corpuscular Hemoglobin 32 pg (27-31); Mean Corpuscular Volume 94 fL (80-94); Mean Platelet Volume 7.6 um3 (7.4-10.4); Nucleated Red Blood Cells % 0.1; Platelet Count 179 10^3/ul (150-450); Red Blood Count 4.01 10^6/ul (4.0-5.4); Red Cell Distribution Width 13 % (10.5-15); White Blood Count 6.6 10^3/ul (3.5-10.8)
[2017-08-31 06:21] LABS: EGFR Non-African American 104.7 (>60)
[2017-08-31] MEDS: Morphine VIAL* 4 MG/ML VIAL (1 ml vial) IV PRN ×3 (06:29→14:36)
[2017-08-31] MEDS: Multivitamins/Minerals TAB PO SCH (08:40)
[2017-08-31] MEDS: Folic Acid TAB* 1 MG PO SCH (08:41)
[2017-08-31] MEDS: Metoprolol Tartrate TAB* 50 mg PO SCH ×2 (08:41→20:21)
[2017-08-31] MEDS: Thiamine TAB* 100 MG TAB PO SCH (08:42)
--- NOTE | 2017-08-31 11:56 | PN ---
Subjective Date of Service: 08/31/17 Interval History: Mr. Fierro continues to complain of pain across is mid to upper abdomen. He denies nausea. He denies diarrhea. He further denies chest pain or SOB. Objective Active Medications: Dextrose (D50w Syringe 50 Ml*) 12.5 gm IV PUSH .FOR FS < 60 - SS PRN Folic Acid (Folvite Tab*) 1 mg PO DAILY [facility] Hydralazine HCl (Apresoline Iv*) 5 mg IV SLOW PU Q6H PRN Hydromorphone HCl (Dilaudid Inj*) 1 mg IV SLOW PU Q4HR PRN Sodium Chloride (Ns 0.9% 1000 Ml*) 1,000 mls @ 150 mls/hr IV PER RATE [facility] Insulin Human Lispro (Humalog*) 0 units SUBCUT Q4HR [facility] Iodixanol (Visipaque* 320 (Contrast)) 129 ml IV ONCE [facility] Lorazepam (Ativan Inj*) 0 - 3 mg IV PUSH .PER [facility] PROTOCOL [facility] Metoprolol Tartrate (Lopressor Tab*) 50 mg PO Q12HR [facility] Morphine Sulfate (Morphine Vial*) 2 mg IV Q4H PRN Multivitamins/Minerals (Theragran/Minerals Tab*) 1 tab PO DAILY [facility] Ondansetron HCl (Zofran Inj*) 4 mg IV Q6H PRN Pantoprazole Sodium (Protonix Iv*) 40 mg IV Q24H [facility] Prochlorperazine Edisylate (Compazine Inj*) 5 mg IV Q6H PRN Rivaroxaban (Xarelto(*)) 20 mg PO DAILY@1700 [facility] Thiamine HCl (Vitamin B-1 Tab*) 100 mg PO DAILY [facility] Vital Signs: Temp Pulse Resp BP Pulse Ox 98.2 F 57 16 154/93 98 08/31/17 10:05 08/31/17 10:05 08/31/17 10:39 08/31/17 10:05 08/31/17 10:05 Oxygen Devices in Use Now: None Appearance: Lying in bed in NAD Eyes: No Scleral Icterus Ears/Nose/Mouth/Throat: Mucous Membranes Moist Neck: Trachea Midline Respiratory: Symmetrical Chest Expansion and Respiratory Effort, Clear to Auscultation Cardiovascular: NL Sounds; No Murmurs; No JVD, No Edema Abdominal: - - Tenderness to mid-upper abdomen, no rebound or guarding, BS + Lymphatic: No Cervical Adenopathy, No Axillary Adenopathy Skin: No Rash or Ulcers Neurological: Alert and Oriented x 3, NL Muscle Strength and Tone Nutrition: Taking PO's Result Diagrams: 08/31/17 05:46 08/31/17 05:46 Additional Lab and Data: . Assess/Plan/Problems-Billing Assessment: Mr. Fierro is a 46 yo M with a PMH of pancreatitis, ETOH abuse, DM, and afib who was admitted on 08/30/17 with pancreatitis. - Patient Problems (1) Pancreatitis Comment: - Persistent pain, lipase improving. - Hx of pancreatic necrosis in 04/2017. CT abd shows persistent but improved inflammatory change in comparison with 04/2017 scan. - Continue IVF and pain meds prn. - Secondary to chronic alcoholism. (2) Alcohol abuse Current Visit: No Comment: - No sign of withdrawal, patient continues to drink approx 12 beers per day. - Continue WAM protocol. Continue folic acid and thiamine. - Alcohol cessation counseling offered, patient not interested in rehab or discussing AA. (3) Atrial fibrillation Comment: - Sinus rhythm on arrival. - Continue metoprolol. - Continue rivaroxaban. (4) Diabetes Comment: - BG well controlled. - Continue lispro SSI coverage. - Hold lantus glimperide, metformin, and lantus while NPO. (5) HTN (hypertension) Comment: - SBP 150s. - Continue metoprolol. (6) DVT prophylaxis Comment: - HSQ (7) Full code status Comment: Status and Disposition: Switch from OBV to inpatient with pancreatitis and persistent abdominal pain.
[2017-08-31] MEDS: Pantoprazole IV* 40 MG IV SCH (13:54)
[2017-08-31] MEDS: Rivaroxaban TAB(*) 20 MG TAB PO SCH (17:42)
[2017-08-31] MEDS: hydrALAZINE IV* 20 MG/ML VIAL IV SLOW PU PRN (22:29)
--- NOTE | 2017-09-01 01:14 | CONS ---
GASTROENTEROLOGY CONSULTATION: DATE : 08/31/17 CONSULTING PHYSICIANS: Yaritza Stein DO and Gloria Catalan REASON FOR CONSULTATION: Pancreatic pseudocyst in an alcoholic with abdominal pain, lipase 869, and albumin 3.8. 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 It became more severe and he came to the emergency room. His vital signs were stable. Labs showed a mild normochromic anemia with a white count of 9.4. Normal LFTs and lipase 869. He was in a fair amount of pain. CT scan showed a cystic area in the head of the pancreas images 40 to 44 of 112 coronal and 40 to 42 of 107 axial. There was no obvious ascites. Biliary system and liver just appeared fatty infiltrated. PAST MEDICAL HISTORY: 1. Alcoholism - he denies any other complication other than pancreatitis. 2. Chronic right knee pain - status post 5 surgeries. 3. Atrial fibrillation - evident 07/30/17 when he was admitted. 4. Chronic anticoagulation - no trouble with Xarelto. 5. Alcoholism. 6. Chronic pancreatitis. 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 REVIEW OF SYSTEMS: He has had the thyroid evaluation by Dr. Lozada in 2004. Most recent TSH in the system is 2.31 on 07/30/17 and at that time, thyroxine was 6.51, cortisol 21. No history of [place], syncope, TB, hemoptysis, hepatitis, jaundice, rectal bleeding. PHYSICAL EXAM: He is a teagan-complected, middle-aged man, working on his laptop. He says his abdomen feels just a little bit bruised, but is much better. HEENT exam is otherwise unremarkable. His vitals are normal. He is afebrile. He has no adenopathy. His lungs are clear and heart sounds are regular. The abdomen is protuberant, obese, symmetric with normal bowel sounds , fairly active though nonmechanical. There is some minimal deep tenderness in the upper abdomen, but really nothing impressive. Extremities show no edema. He has multiple scars on the right knee. Neurologic: Normal with good coordination in all 4 extremities. There is no asterixis. LABORATORY DATA AND DIAGNOSTIC STUDIES: CBC shows hemoglobin 12.9 down from 16.3 yesterday, MCV 94, platelets 179. IMPRESSION AND PLAN: This alcoholic, who has not been abstinent, presents with a continuation of pancreatic disease. He has chronic pancreatitis and now a small pseudocyst. Generally, the complications of biliary compression, bleeding or infection or pancreatic ascites will only occur when a cyst is greater than 6 cm and then the need to intervene depends on the duration of the cyst without shrinkage He spontaneously voiced the desire to quit drinking (without equivocation) and said he understood the implications of continued destruction of the pancreas. An ultrasound will be done for baseline and hopefully documentation of size of the pancreatic duct. [id number]/[facility] #: [id number] ILA
[2017-09-01] MEDS: Insulin LISPRO* 1 UNITS UNIT SUBCUT SCH ×5 (02:10→17:38)
[2017-09-01] MEDS: NS 0.9% 1000 ML* 1,000 ML IV SCH (03:17)
--- NOTE | 2017-09-01 09:22 | RAD ---
HISTORY: Clinical symptoms consistent with pancreatitis COMPARISONS: CT abdomen pelvis August 30, 2017 demonstrating peripancreatic fluid and peripancreatic cyst formation TECHNIQUE: Multiple transverse and longitudinal ultrasound images were obtained of the right upper quadrant. FINDINGS: LIVER: The liver exhibits homogenous increased echogenicity. Normal hepatic and portal venous blood flow is duplicated with color flow imaging. There is no gross intrahepatic biliary duct dilatation. GALLBLADDER AND EXTRAHEPATIC BILIARY DUCT: The gallbladder is normal in appearance without intraluminal stones or other soft tissue masses. There is no pericholecystic fluid or gallbladder wall thickening. The common bile duct measures a maximum diameter of 4 mm. PANCREAS: There is trace peripancreatic fluid seen at the visualized portions of the pancreatic head. There is mildly increased echogenicity of the visualized portions of the pancreas. Much of the pancreas is obscured by overlying bowel gas. RIGHT KIDNEY: The right kidney is normal in size, morphology and echogenicity. IMPRESSION: 1. TRACE PERIPANCREATIC FLUID SIMILAR TO THE AUGUST 30, 2017 CT EXAMINATION COULD BE SEEN IN THE SETTING OF PANCREATITIS. 2. HOMOGENOUSLY INCREASED ECHOGENICITY THE LIVER IS MOST COMMONLY SEEN DUE TO HEPATIC STEATOSIS.
[2017-09-01] MEDS: Folic Acid TAB* 1 MG PO SCH (10:27)
[2017-09-01] MEDS: Metoprolol Tartrate TAB* 50 mg PO SCH (10:28)
[2017-09-01] MEDS: Multivitamins/Minerals TAB PO SCH (10:28)
[2017-09-01] MEDS: Thiamine TAB* 100 MG TAB PO SCH (10:28)
--- NOTE | 2017-09-01 10:59 | RAD ---
HISTORY: Abdominal pain COMPARISONS: CT dated August 30, 2017 VIEWS: Frontal supine and upright views of the abdomen. FINDINGS: BOWEL: There is a nonspecific bowel gas pattern, with nondilated small bowel gas noted. There is gaseous distention of the transverse colon. Oral contrast extends distally into the rectum. CALCULI: There are no abnormal calculi. BONES AND SOFT TISSUES: Degenerative changes are noted. OTHER FINDINGS: The lung bases are clear. There is no subphrenic gas. IMPRESSION: NONSPECIFIC BOWEL GAS PATTERN. GASEOUS DISTENTION OF THE TRANSVERSE COLON. ORAL CONTRAST EXTENDS DISTALLY TO THE RECTUM.
--- NOTE | 2017-09-01 12:44 | PN ---
Subjective Date of Service: 09/01/17 Interval History: Mr. Fierro reports feeling much better today. He denies abdominal pain and is hopeful to advance his diet. Objective Active Medications: Dextrose (D50w Syringe 50 Ml*) 12.5 gm IV PUSH .FOR FS < 60 - SS PRN Folic Acid (Folvite Tab*) 1 mg PO DAILY [facility] Hydralazine HCl (Apresoline Iv*) 5 mg IV SLOW PU Q6H PRN Hydromorphone HCl (Dilaudid Inj*) 1 mg IV SLOW PU Q4HR PRN Sodium Chloride (Ns 0.9% 1000 Ml*) 1,000 mls @ 150 mls/hr IV PER RATE [facility] Insulin Human Lispro (Humalog*) 0 units SUBCUT Q4HR [facility] Lorazepam (Ativan Inj*) 0 - 3 mg IV PUSH .PER [facility] PROTOCOL [facility] Metoprolol Tartrate (Lopressor Tab*) 50 mg PO Q12HR [facility] Morphine Sulfate (Morphine Vial*) 2 mg IV Q4H PRN Multivitamins/Minerals (Theragran/Minerals Tab*) 1 tab PO DAILY [facility] Ondansetron HCl (Zofran Inj*) 4 mg IV Q6H PRN Pantoprazole Sodium (Protonix Iv*) 40 mg IV Q24H [facility] Prochlorperazine Edisylate (Compazine Inj*) 5 mg IV Q6H PRN Rivaroxaban (Xarelto(*)) 20 mg PO DAILY@1700 [facility] Thiamine HCl (Vitamin B-1 Tab*) 100 mg PO DAILY [facility] Vital Signs: Temp Pulse Resp BP Pulse Ox 99.1 F 75 18 157/75 99 09/01/17 09:54 09/01/17 09:54 09/01/17 09:54 09/01/17 10:00 09/01/17 09:54 Oxygen Devices in Use Now: None Appearance: Male sitting up in bed in NAD Eyes: No Scleral Icterus Ears/Nose/Mouth/Throat: Mucous Membranes Moist Neck: Trachea Midline Respiratory: Symmetrical Chest Expansion and Respiratory Effort, Clear to Auscultation Cardiovascular: NL Sounds; No Murmurs; No JVD, No Edema Abdominal: NL Sounds; No Tenderness; No Distention Lymphatic: No Cervical Adenopathy Extremities: No Edema Skin: No Rash or Ulcers Neurological: Alert and Oriented x 3, NL Muscle Strength and Tone Nutrition: Taking PO's Result Diagrams: 08/31/17 05:46 08/31/17 05:46 Additional Lab and Data: . Assess/Plan/Problems-Billing Assessment: Mr. Fierro is a 46 yo M with a PMH of pancreatitis, ETOH abuse, DM, and afib who was admitted on 08/30/17 with pancreatitis. - Patient Problems (1) Pancreatitis Comment: - Pain improved, start full liquid diet and advance as tolerated. - Appreciate GI consult. Hx of pancreatic necrosis in 04/2017. CT abd shows persistent but improved inflammatory change in comparison with 04/2017 scan. - Continue IVF and pain meds prn. - Secondary to chronic alcoholism. (2) Alcohol abuse Current Visit: No Comment: - No sign of withdrawal, patient continues to drink approx 12 beers per day. - Continue WAM protocol. Continue folic acid and thiamine. - Alcohol cessation counseling offered, patient not interested in rehab or discussing AA. (3) Atrial fibrillation Comment: - Sinus rhythm on arrival. - Continue metoprolol. - Continue rivaroxaban. (4) Diabetes Comment: - BG well controlled. - Continue lispro SSI coverage. - Hold lantus glimperide, metformin, and lantus while NPO. (5) HTN (hypertension) Comment: - SBP 150s. - Continue metoprolol. (6) DVT prophylaxis Comment: - HSQ (7) Full code status Comment: Status and Disposition: Inpatient. Anticipate discharge to home when medically stable.
[2017-09-01] MEDS: Rivaroxaban TAB(*) 20 MG TAB PO SCH (15:26)
[2017-09-01] MEDS: Pantoprazole IV* 40 MG IV SCH (15:26)
[2017-09-01 17:50] VITALS: BP 157/98
--- NOTE | 2017-09-02 18:06 | DS ---
CC: Dr. Catalan * [facility] MEDICINE DISCHARGE SUMMARY: DATE OF ADMISSION: 08/30/17 DATE OF DISCHARGE: 09/01/17 PRIMARY CARE PHYSICIAN: Gloria Catalan MD ATTENDING PHYSICIAN: Dr. Rosario Sullivan * (dictation provided by Aileen Martinez NP ) PRIMARY DIAGNOSIS: Pancreatitis secondary to alcohol abuse. SECONDARY DIAGNOSES: 1. History of atrial fibrillation, on Xarelto therapy. 2. Type 2 diabetes, insulin dependent. 3. Hyperlipidemia. 4. Hypertension. 5. Gastroesophageal reflux disease. MEDICATIONS AT THE TIME OF DISCHARGE: They are unchanged, they are: 1. Thiamine 100 mg p.o. daily. 2. Rosuvastatin 20 mg p.o. daily. 3. Rivaroxaban 20 mg p.o. daily. 4. Pantoprazole 40 mg p.o. daily. 5. Metoprolol tartrate 50 mg p.o. q.12 hours. 6. Metformin ER 500 mg p.o. b.i.d. 7. Tresiba 19 units subcutaneous q.a.m. 8. Glimepiride 4 mg p.o. b.i.d. HOSPITAL COURSE: Mr. Gio Fierro is a 46-year-old male with a past medical history of alcoholic pancreatitis who presented to the hospital on 08/30/17 with concern for abdominal pain. Please see dictated H and P from Callie Hinton NP for complete details. In brief, the patient stated that he had pain starting in the abdomen about 3 a.m. prior to admission. He also reported diarrhea and nausea He also reports that he had been continuing to drink about 12 beers per day. In the emergency room, he had a lipase of 869, and a CT abdomen and pelvis which showed "persistent but improving peripancreatic inflammatory change consistent with a history of pancreatitis". There is a loculated fluid collection suggestive of a pseudocyst at the level of the pancreatic head, measuring up to 3.7 cm, hepatomegaly with fatty infiltration of the liver. Mr. Fierro was admitted to the hospital for acute pancreatitis secondary to alcoholism. Mr. Fierro was treated with IV fluids and pain medications and remained n.p.o. With this, he has had good resolution of his pain. Today, he was absolutely pain- free. His vitals were stable. His lipase was repeated and was going down ,and is now 436. His diet has been advanced slowly during the day. He was started on full liquids and now is having a soft diet for dinner. Plan are that if he is able to tolerate oral soft diet without any pain that he can be discharged to home tonight to follow up with Dr. Catalan outpatient. If the patient does have pain, we will continue to monitor and return to n.p.o. status. DISPOSITION: Home. DIET: Low fat, consistent carbohydrate. ACTIVITY: As tolerated. FOLLOWUP PLANS: 1. Please follow up with Dr. Catalan within the next week regarding this acute hospitalization. 2. Please consider following up with Alcoholics Anonymous or rehab regarding persistent alcoholism. TIME SPENT: Approximately 60 minutes was spent on the discharge of this patient , more than half that time spent with the patient at the bedside reviewing the events leading up to and during this hospitalization thus far, performing the physical examination, and reviewing the plan of care. AILEEN MARTINEZ NP [id number]/CPS #: [id number] ILA
== END 2017-09-01 18:35 | disposition home or self-care (01) | DRG 440 ==
LOC: ED 06:14 → MED 08:28 → OBSVTOIN 08-31 12:00
PROVIDERS: ADMIT Internal Medicine; ATTEND Internal Medicine
DX: K85.20 Alcohol induced acute pancreatitis without necrosis or infection (principal); I48.91 Unspecified atrial fibrillation; E11.9 Type 2 diabetes mellitus without complications; E78.5 Hyperlipidemia, unspecified; I10 Essential (primary) hypertension; K21.9 Gastro-esophageal reflux disease without esophagitis; F10.20 Alcohol dependence, uncomplicated; Y90.0 Blood alcohol level of less than 20 mg/100 ml; M25.561 Pain in right knee; Z79.01 Long term (current) use of anticoagulants; Z79.84 Long term (current) use of oral hypoglycemic drugs; Z79.4 Long term (current) use of insulin; Z79.899 Other long term (current) drug therapy; Z82.49 Family history of ischemic heart disease and other diseases of the circulatory system; Z83.3 Family history of diabetes mellitus
CPT/HCPCS: 36415; 74019; 74177; 76705; 80053; 80320; 81003; 81015; 82150; 83605; 83690; 83735; 85025; 86140; 87086; 93005; 99284; A9270-GY; G0378; G0480; J0360; J1200; J2270; J2765; J2920; J3411; Q9967

== ENCOUNTER 2018-01-30 15:05 | Emergency (ER) | payer OTHER ==
[2018-01-30 16:17] LABS: ABS Basophils 0 10^3/ul (0-0.2); ABS Eosinophils 0 10^3/ul (0-0.6); ABS Monocytes 0.7 10^3/ul (0-0.8); ABS Nucleated RBC 0 10^3/ul; Eosinophil % 0.1 % (0-6); Hematocrit 44 % (42-52); Hemoglobin 15.3 g/dl (14.0-18.0); Lymphocyte % 10.4 % (25-47); Mean Corpuscular HGB Conc 35 g/dl (31-36); Mean Corpuscular Hemoglobin 32 pg (27-31); Mean Corpuscular Volume 92 fL (80-94); Mean Platelet Volume 7.5 um3 (7.4-10.4); Nucleated Red Blood Cells % 0; Platelet Count 249 10^3/ul (150-450); Red Blood Count 4.73 10^6/ul (4.00-5.40); Red Cell Distribution Width 13 % (10.5-15); White Blood Count 9.8 10^3/ul (3.5-10.8)
--- NOTE | 2018-01-30 16:36 | ED ---
Abdominal Pain/Male - HPI Summary HPI Summary: This patient is a 47 year old M presenting to [facility] accompanied by his with a chief complaint of diffuse abd pain since midnight. The patient rates the pain 7/10 in severity. Symptoms aggravated by nothing. Symptoms alleviated by nothing. Patient reports vomiting, feeling bloated, nausea, and diarrhea. Patient denies fever, chills, double vision, SOB, blurry vision, ear ache, chest pain, back pain, neck pain, hematuria, bloody stool, pedal edema, bruising. Patient notes that he drinks 10 beers per day. Pt notes decrease oral intake since last night. Pt has hx of pancreatitis and notes that he thinks it has come back. - History of Current Complaint Chief Complaint: EDAbdPain Stated Complaint: ABD PAIN/BLOATING Hx Obtained From: Patient Onset/Duration: Gradual Onset, Lasting Hours, Still Present Timing: Constant, Lasting Hours Severity Initially: Moderate Severity Currently: Moderate Pain Intensity: 7 Pain Scale Used: 0-10 Numeric Location: Diffuse Aggravating Factor(s): Nothing Alleviating Factor(s): Nothing Associated Signs And Symptoms: Positive: Decreased Appetite, Nausea, Vomiting, Diarrhea. Negative: Fever - Allergies/Home Medications Allergies/Adverse Reactions: Allergies Allergy/AdvReac Type Severity Reaction Status Date / Time iodixanol Allergy Hives/Diff. Verified 01/30/18 15:20 Breathing/I tching Home Medications: Home Medications Ibuprofen TAB* [Motrin TAB* 400 MG] 400 mg PO Q6H PRN 01/30/18 [History Confirmed 01/30/18] PMH/Surg Hx/FS Hx/Imm Hx Endocrine/Hematology History: Reports: Hx Diabetes Cardiovascular History: Reports: Hx Hypercholesterolemia, Hx Hypertension, Other Cardiovascular Problems/Disorders - RAPID AFIB LAST ADMISSION Denies: Hx Pacemaker/ICD Respiratory History: Reports: Hx Sleep Apnea GI History: Reports: Other GI Disorders - pancreatitis secondary to alcoholism History: Denies: Hx Renal Disease Musculoskeletal History: Reports: Other Musculoskeletal History - right knee ACL , infection, spine sx, shoulder sx Sensory History: Reports: Hx Contacts or Glasses Denies: Hx Hearing Aid Opthamlomology History: Reports: Hx Contacts or Glasses Psychiatric History: Reports: Hx Substance Abuse - alcohol, tobacco Denies: Hx Panic Disorder - Surgical History Surgery Procedure, Year, and Place: RIGHT KNEE ORTHO X 4 ; BACK 2000 ; LEFT SHOULDER 2011 ; RIGHT SHOULDER 11/22/2015 Hx Anesthesia Reactions: No - Immunization History Date of Tetanus Vaccine: up to date Date of Influenza Vaccine: not yet Infectious Disease History: No Infectious Disease History: Denies: Traveled Outside the [place] in Last 30 Days - Family History Known Family History: Positive: Hypertension, Diabetes Negative: Cardiac Disease - Social History Alcohol Use: Daily Alcohol Amount: 10 BEERS DAILY Hx Substance Use: No Substance Use Type: Reports: None Substance Use Comment - Amount & Last Used: 04/13/16 Hx Tobacco Use: No Smoking Status (MU): Never Smoked Tobacco Type: Smokeless Tobacco Amount Used/How Often: up to 2 cans a day Length of Time of Smoking/Using Tobacco: 30 years Have You Smoked in the Last Year: No Review of Systems Negative: Fever, Chills Negative: Photophobia, Blurred Vision Negative: Sore Throat, Ear Ache Negative: Chest Pain Positive: Abdominal Pain, Vomiting, Diarrhea, Nausea, Other - negative bloody stool Negative: hematuria Negative: Edema Negative: Bruising Negative: Headache Negative: Anxious All Other Systems Reviewed And Are Negative: No Physical Exam - Summary Physical Exam Summary: Appearance: Alert, conversive, nontoxic appearing Skin: Warm, dry, no mottling, no rashes, no contusions HEENT: EOMI, PERRL, slightly dry mucous membranes Neck: No masses on the neck, supple Respiratory: Clear to auscultation, breath sounds present, no rales, no rhonchi , no wheezes Cardiovascular: Mild tachycardia, pulses are symmetrical in both lower and upper extremities Abdomen: Soft, non-tender Bowel Sounds: Present Musculoskeletal: No CVA tenderness, no obvious deformity, moving all extremities in a grossly normal manner Neurological: A&Ox3, CN II-XII Intact, moving all extremities symmetrically Psychiatric: Normal affect and mood Triage Information Reviewed: Yes Vital Signs On Initial Exam: Initial Vitals Temp Pulse Resp BP Pulse Ox 98.4 F 85 18 196/106 96 01/30/18 15:17 01/30/18 15:17 01/30/18 15:17 01/30/18 15:17 01/30/18 15:17 Vital Signs Reviewed: Yes Diagnostics - Vital Signs Vital Signs Temp Pulse Resp BP Pulse Ox 01/30/18 15:17 98.4 F 85 18 196/106 96 - Laboratory Lab Results: Lab Results 01/30/18 01/30/18 01/30/18 Range/Units 15:57 15:57 15:57 WBC 9.8 (3.5-10.8) 10^3/ul RBC 4.73 (4.00-5.40) 10^6/ul Hgb 15.3 (14.0-18.0) g/dl Hct 44 (42-52) % MCV 92 (80-94) fL MCH 32 H (27-31) pg MCHC 35 (31-36) g/dl RDW 13 (10.5-15) % Plt Count 249 (150-450) 10^3/ul MPV 7.5 (7.4-10.4) um3 Neut % (Auto) 81.7 (38-83) % Lymph % (Auto) 10.4 L (25-47) % Hardin % (Auto) 7.6 H (0-7) % Eos % (Auto) 0.1 (0-6) % Baso % (Auto) 0.2 (0-2) % Absolute Neuts (auto) 8.0 H (1.5-7.7) 10^3/ul Absolute Lymphs (auto) 1.0 (1.0-4.8) 10^3/ul Absolute Monos (auto) 0.7 (0-0.8) 10^3/ul Absolute Eos (auto) 0 (0-0.6) 10^3/ul Absolute Basos (auto) 0 (0-0.2) 10^3/ul Absolute Nucleated RBC 0 10^3/ul Nucleated RBC % 0 Sodium 131 L (135-145) mmol/L Potassium 4.0 (3.5-5.0) mmol/L Chloride 96 L (101-111) mmol/L Carbon Dioxide 22 (22-32) mmol/L Anion Gap 13 H (2-11) mmol/L BUN 8 (6-24) mg/dL Creatinine 0.88 (0.67-1.17) mg/dL Est GFR ( Amer) 111.4 (>60) Est GFR (Non-Af Amer) 92.0 (>60) BUN/Creatinine Ratio 9.1 (8-20) Glucose 202 H (70-100) mg/dL Lactic Acid 1.5 (0.5-2.0) mmol/L Calcium 9.8 (8.6-10.3) mg/dL Total Bilirubin 1.20 H (0.2-1.0) mg/dL AST 41 H (13-39) U/L ALT 38 (7-52) U/L Alkaline Phosphatase 64 (34-104) U/L Total Protein 8.0 (6.4-8.9) g/dL Albumin 4.8 (3.2-5.2) g/dL Globulin 3.2 (2-4) g/dL Albumin/Globulin Ratio 1.5 (1-3) Lipase 168 H (11.0-82.0) U/L Result Diagrams: 01/30/18 15:57 01/30/18 15:57 Lab Statement: Any lab studies that have been ordered have been reviewed, and results considered in the medical decision making process. - CT Abdomen CT CT Interpretation: Positive (See Comments) - IMPRESSION: 1. THERE IS PERIPANCREATIC INFLAMMATORY CHANGE WITH ASSOCIATED CYSTS OF THE PANCREATIC HEAD. THIS IS SIMILAR TO AUGUST 30, 2017 EXAMINATION. GIVEN THE PERSISTENCE, THIS MAY REFLECT RECURRENT PANCREATITIS, OR PERSISTENT INFLAMMATION IN THE SETTING OF CHRONIC PANCREATITIS.[facility] RECOMMEND CORRELATION WITH SERUM MARKERS FOR PANCREATITIS. 2. HEPAT[address] Dr. Graham has reviewed this report. CT Interpretation Completed By: Radiologist Re-Evaluation - Re-Evaluation 1st re-eval Re-Evaluation Time: 17:46 Change: Unchanged Comment: Patient states that he would like to be admitted overnight. He still has his gallbladder and feels nauseous whenever he tries to eat or drink. 2nd re-eval Re-Evaluation Time: 18:11 Change: Improved Comment: Recommended and offered admission to patient and he refused. Offered US to patient and he refused. Patient says he wants to go home. Abdominal Pain Fem Course/Dx - Course Course Of Treatment: This patient is a 47 year old M with hx of pancreatitis reporting diffuse abd pain and N/V/D since midnight. Abdomen CT reveals, per radiologist, peripancreatic inflammatory change and hepatomegaly. ED physician has reviewed this radiology report. Test results with no significant abnormalities. In the ED course the patient was given IV fluids, morphine, and Zofran. We recommended admission, offered admission to patient and offered an US to patient but he refused. Patient will be discharged home with follow up with PCP. The patient is agreeable with this plan. - Diagnoses Provider Diagnoses: Pancreatitis Discharge - Sign-Out/Discharge Documenting (check all that apply): Patient Departure - discharge home - Discharge Plan Condition: Stable Disposition: HOME Patient Education Materials: Pancreatitis (ED) Referrals: Gloria Catalan MD [Primary Care Provider] - Additional Instructions: Please follow up with your primary care physician tomorrow. if you feel worse or you do not feel better, please come back so we can re-evaluate you and determine if you need admission. Take all medications as previously instructed. please try to cut back on your daily alcohol intake. avoid salty, greasy/fatty foods. - Billing Disposition and Condition Condition: STABLE Disposition: Home - Attestation Statements Document Initiated by Johnny: Yes Documenting Scribe: Perlita Sauceda Provider For Whom Johnny is Documenting (Include Credential): Josiane Graham MD Scribe Attestation: Perlita Looney, scribed for Josiane Graham MD on 01/31/18 at 1106. Scribe Documentation Reviewed: Yes Provider Attestation: The documentation as recorded by the Perlita fierro accurately reflects the service I personally performed and the decisions made by , Josiane Graham MD
[2018-01-30 16:42] LABS: Urine Appearance Clear; Urine Blood 1+ (Negative); Urine Color Yellow; Urine Ketones Trace (Negative); Urine Protein 1+(30 mg/dL) (Negative); Urine Red Blood Cell Absent (Absent); Urine Specific Gravity 1.012 (1.010-1.030); Urine Urobilinogen Negative (Negative); Urine White Blood Cell Trace(0-5/hpf) (Absent)
[2018-01-30] MEDS ORDERED: NS 0.9% 1000 ML* 1,000 ML IV ONE (16:43)
[2018-01-30] MEDS ORDERED: Morphine INJ* 4 MG/ML 1 ML SYRINGE (NEW SYRINGE VERSION) IV ONE (16:44)
[2018-01-30] MEDS ORDERED: Ondansetron INJ* 2 MG/ML VIAL IV ONE (16:50)
[2018-01-30] MEDS ORDERED: Ondansetron INJ* 2 MG/ML VIAL ONE (16:51)
--- NOTE | 2018-01-30 17:27 | RAD ---
CLINICAL HISTORY: abdominal pain COMPARISON: August 30, 2017 TECHNIQUE: Multiple contiguous axial CT scans were obtained of the abdomen and pelvis, without intravenous contrast enhancement. Coronal and sagittal multiplanar reformations are submitted for review. Oral contrast was not administered. FINDINGS: Evaluation is limited due to the lack of intravenous contrast. This limits evaluation of the solid organs and vasculature. LUNG BASES: The lung bases are clear. LIVER: The liver is diffusely low in attenuation compared to the spleen. There are no focal hepatic parenchymal masses. BILE DUCTS: There is no intrahepatic or extrahepatic biliary dilatation. GALLBLADDER: The gallbladder is normal, without pericholecystic inflammatory change. PANCREAS: There is stranding of the peripancreatic fat along the head. There is a stable partially calcified low-attenuation fluid collection of the pancreatic head the tail of pancreas is atrophic. SPLEEN: Normal in size and appearance. UPPER GI TRACT: Evaluation of the gastrointestinal tract is limited by incomplete gastric distention. The upper GI tract is unremarkable. SMALL BOWEL AND MESENTERY: The small bowel is normal in contour, course, and caliber. There is no obstruction or dilatation. COLON: The colon is normal in contour, course, caliber. There is no pericolonic inflammatory change. ADRENALS: Normal bilaterally. KIDNEYS: The kidneys are normal in shape, size, contour, and axis. There is no hydronephrosis or nephrolithiasis. BLADDER: There is mild circumferential bladder wall thickening. PELVIC ORGANS: The prostate gland is normal. The seminal vesicles are symmetric. AORTA: The aorta is normal. IVC: Unremarkable LYMPH NODES: There is no lymphadenopathy by size criteria. ABDOMINAL WALL: There is no evidence for abdominal wall hernia. BONES AND SOFT TISSUES: There are mild diffuse degenerative changes. OTHER: None IMPRESSION: 1. THERE IS PERIPANCREATIC INFLAMMATORY CHANGE WITH ASSOCIATED CYSTS OF THE PANCREATIC HEAD. THIS IS SIMILAR TO AUGUST 30, 2017 EXAMINATION. GIVEN THE PERSISTENCE, THIS MAY REFLECT RECURRENT PANCREATITIS, OR PERSISTENT INFLAMMATION IN THE SETTING OF CHRONIC PANCREATITIS. RECOMMEND CORRELATION WITH SERUM MARKERS FOR PANCREATITIS. 2. HEPATOMEGALY.
[2018-01-30 18:26] VITALS: BP 167/91
== END 2018-01-30 18:25 | disposition home or self-care (01) ==
LOC: ED 15:05
DX: K85.20 Alcohol induced acute pancreatitis without necrosis or infection (principal); R11.2 Nausea with vomiting, unspecified; R19.7 Diarrhea, unspecified; Z91.041 Radiographic dye allergy status; F17.220 Nicotine dependence, chewing tobacco, uncomplicated
CPT/HCPCS: 36415; 74176; 80053; 81003; 81015; 83605; 83690; 85025; 87086; 96374; 96375; 99282; J2270; J2405

== ENCOUNTER 2019-11-02 10:54 | Observation (INO) ==
[~2019-11-02 10:54] MED LIST: Buffered Lidocaine 1% SYRIN 1 ml INTRADERM ONE; Famotidine IV 10 MG/ML 2 ml VIAL (20 mg) IV ONE; Lactated Ringers 1000 ml BAG 1,000 ML IV SCH
[2019-11-02] MEDS ORDERED: Lidocaine 2% PF 5 ML VIAL ONE (11:06)
[2019-11-02] MEDS ORDERED: Propofol 10 MG/ML 20 ML BTL ONE (11:06)
[2019-11-02] MEDS ORDERED: Midazolam 5 mg/5 ml VIAL 1 mg/ml 5 ml VIAL (5 mg) ONE ×2 (11:06→14:47)
[2019-11-02] MEDS ORDERED: ceFAZolin 2 GM PREMIX 2 GM/50 ML BAG ONE (11:13)
[2019-11-02] MEDS ORDERED: Buffered Lidocaine 1% SYRIN 1 ml INTRADERM ONE (11:14)
[2019-11-02] MEDS ORDERED: Famotidine IV 10 MG/ML 2 ml VIAL (20 mg) ONE (11:14)
[2019-11-02 12:11] LABS: BUN/Creatinine Ratio 13.6 (8-20); Calcium 10.4 mg/dL (8.6-10.3); EGFR African American 110.9 (>60); EGFR Non-African American 91.7 (>60); Potassium 4.4 mmol/L (3.5-5.0)
[2019-11-02] MEDS ORDERED: Bupivacaine 0.5% SDV PF 30ML VIAL ONE (14:26)
[2019-11-02] MEDS ORDERED: Dexmedetomidine 200 mcg/2 ml 2 ml VIAL (200 mcg) ONE (15:00)
[2019-11-02] MEDS ORDERED: Phenylephrine 40 mcg/mL 10mL (400mcg) SYRINGE ONE ×2 (15:29→15:45)
[2019-11-02] MEDS ORDERED: Midazolam 2 mg/2 ml VIAL 1 mg/ml 2 ml VIAL (2 mg) ONE ×2 (15:43→16:11)
[2019-11-02] MEDS ORDERED: Ketamine HCL 50 mg/ml 10 ml VIAL (500 MG) ONE (15:47)
[2019-11-02] MEDS ORDERED: Ondansetron ODT 4 mg TAB 4 MG TAB PO PRN (15:47)
[2019-11-02] MEDS ORDERED: diPHENhydraMINE 25 mg TAB PO PRN (15:47)
[2019-11-02] MEDS ORDERED: Lactulose 30 ml UDC PO PRN (15:47)
[2019-11-02] MEDS ORDERED: diPHENhydraMINE IV 50 MG/ML 1 ml VIAL (BENADRYL) IV PRN (15:47)
[2019-11-02] MEDS ORDERED: Ondansetron 4 mg VIAL 2 MG/ML 2 ml VIAL IV PRN (15:47)
[2019-11-02] MEDS ORDERED: Morphine 2 MG/ML SYRINGE IV PRN (15:47)
[2019-11-02] MEDS ORDERED: ROPIVACAINE 5 MG/ML 30 ML BTL (0.5%) ONE (16:28)
[2019-11-02] MEDS: Lactated Ringers 1000 ml BAG 1,000 ML IV SCH (18:42)
[2019-11-02] MEDS: CMCS: Glimepiride 2 mg TAB (NF) PO SCH (20:59)
[2019-11-02] MEDS: oxyCODONE/Acetamin 5/325 mg TAB PO PRN (21:34)
[2019-11-02] MEDS: ceFAZolin 1 GM ADVAN 1 GM in NS 0.9% 50 ML 50 ML IVPB SCH (22:42)
[2019-11-03] MEDS: oxyCODONE/Acetamin 5/325 mg TAB PO PRN ×4 (02:16→20:53)
[2019-11-03] MEDS: Lactated Ringers 1000 ml BAG 1,000 ML IV SCH ×3 (04:57→17:02)
[2019-11-03 05:51] LABS: Hematocrit 36 % (42-52); Hemoglobin 12.5 g/dL (14.0-18.0); Mean Platelet Volume 7.7 fL (7.4-10.4); Platelet Count 181 10^3/uL (150-450)
[2019-11-03 06:08] LABS: BUN/Creatinine Ratio 10.5 (8-20); Calcium 8.8 mg/dL (8.6-10.3); EGFR African American 45.4 (>60); EGFR Non-African American 37.5 (>60); Potassium 4.3 mmol/L (3.5-5.0)
[2019-11-03] MEDS: ceFAZolin 1 GM ADVAN 1 GM in NS 0.9% 50 ML 50 ML IVPB SCH ×2 (06:25→14:13)
[2019-11-03 06:49] LABS: TSH (Thyroid Stimulating Horm) 3.14 mcIU/mL (0.34-5.60)
[2019-11-03] MEDS ORDERED: Lactated Ringers 1000 ml BAG 1,000 ML IV SCH (07:45)
[2019-11-03] MEDS: CMCS: Glimepiride 2 mg TAB (NF) PO SCH (07:58)
[2019-11-03] MEDS: Vitamin THERAPEUTIC TAB PO SCH (07:59)
[2019-11-03] MEDS ORDERED: Insulin GLARGINE 100 un/ml 10 ml VIAL SUBCUT SCH (08:00)
[2019-11-03] MEDS ORDERED: INSULIN DEGLUDEC 70 UNIT SUBCUT SCH (09:00)
[2019-11-03] MEDS ORDERED: Empaglifozin 10 mg TAB (NF) PO SCH (09:00)
[2019-11-03 13:00] LABS: Calcium 8.7 mg/dL (8.6-10.3); Potassium 4.6 mmol/L (3.5-5.0)
[2019-11-03 13:06] LABS: EGFR African American 38.7 (>60)
[2019-11-03] MEDS ORDERED: Insulin GLARGINE 100 un/ml 10 ml VIAL SUBCUT ONE (13:42)
[2019-11-03 14:52] LABS: Urine Appearance Cloudy; Urine Bilirubin Negative (Negative); Urine Blood Negative (Negative); Urine Color Amber; Urine Glucose 3+(>=500 mg/dL) (Negative); Urine Ketones Negative (Negative); Urine Nitrite Negative (Negative); Urine Protein Negative (Negative); Urine Specific Gravity 1.021 (1.010-1.030); Urine Urobilinogen Negative (Negative)
[2019-11-03 17:03] LABS: BUN/Creatinine Ratio 11.8 (8-20); Calcium 8.7 mg/dL (8.6-10.3); EGFR African American 42.3 (>60); EGFR Non-African American 34.9 (>60); Potassium 4.1 mmol/L (3.5-5.0)
[2019-11-03 22:32] LABS: BUN/Creatinine Ratio 11.9 (8-20); Calcium 8.8 mg/dL (8.6-10.3); EGFR African American 55.6 (>60); Potassium 4.4 mmol/L (3.5-5.0)
[2019-11-04] MEDS ORDERED: Furosemide 40 mg/4 ml IV VIAL IV ONE (00:16)
[2019-11-04] MEDS: oxyCODONE/Acetamin 5/325 mg TAB PO PRN ×2 (03:28→08:39)
[2019-11-04 06:25] LABS: Hematocrit 36 % (42-52); Mean Platelet Volume 8.2 fL (7.4-10.4); Platelet Count 183 10^3/uL (150-450)
[2019-11-04 06:48] LABS: BUN/Creatinine Ratio 13.2 (8-20); Calcium 9.8 mg/dL (8.6-10.3); EGFR African American 67.1 (>60); EGFR Non-African American 55.5 (>60); Potassium 4.6 mmol/L (3.5-5.0)
[2019-11-04] MEDS ORDERED: Insulin GLARGINE 100 un/ml 10 ml VIAL SUBCUT SCH (08:00)
[2019-11-04] MEDS: Vitamin THERAPEUTIC TAB PO SCH (08:39)
[2019-11-04 11:59] VITALS: BP 123/73
== END 2019-11-04 13:30 | disposition home or self-care (01) ==
LOC: SSU 10:54 → OR 10:54
PROVIDERS: ADMIT Orthopaedic Surgery Adult Reconstructive Orthopaedic Surgery; ATTEND Orthopaedic Surgery Adult Reconstructive Orthopaedic Surgery

== ENCOUNTER 2022-02-03 16:01 | Inpatient (IN) ==
[2022-02-03] MEDS ORDERED: Lactated Ringers 1000 ml BAG 1,000 ML IV ONE ×4 (16:28→20:04)
[2022-02-03 17:02] LABS: ABS Lymphocytes 1.1 10^3/ul (1.0-4.8); ABS Monocytes 1.3 10^3/ul (0-0.8); ABS Neutrophils 9.6 10^3/ul (1.5-7.7); Hematocrit 54 % (42-52); Hemoglobin 18.2 g/dL (14.0-18.0); Lymphocyte % 9.4 %; Mean Corpuscular HGB Conc 34 g/dL (31-36); Mean Corpuscular Hemoglobin 32 pg (27-31); Mean Corpuscular Volume 95 fL (80-94); Mean Platelet Volume 8.1 fL (7.4-10.4); Nucleated Red Blood Cells % 0.1; Platelet Count 270 10^3/uL (150-450); Red Blood Count 5.65 10^6 /uL (4.18-5.48); Red Cell Distribution Width 13 % (10-15)
[2022-02-03 17:14] LABS: INR 1.16 (0.89-1.11)
[2022-02-03 17:18] LABS: High Sens Troponin Baseline 14 pg/mL (<20)
[2022-02-03] MEDS ORDERED: Lorazepam PYXIS KEY PRN ×2 (17:39→18:31)
[2022-02-03 17:40] LABS: ALT 33 U/L (7-52); AST 39 U/L (13-39); Albumin 4.7 g/dL (3.2-5.2); Albumin/Globulin Ratio 1.3 (1-3); Alkaline Phosphatase 62 U/L (35-149); Anion Gap 19 mmol/L (2-11); Blood Urea Nitrogen 36 mg/dL (6-24); CO2 Carbon Dioxide 20 mmol/L (22-32); Calcium 9.7 mg/dL (8.6-10.3); Chloride 87 mmol/L (101-111); Globulin 3.5 g/dL (2-4); Glucose 280 mg/dL (70-100); Magnesium 2.4 mg/dL (1.9-2.7); Potassium 4.5 mmol/L (3.5-5.0); Sodium 126 mmol/L (135-145); Total Protein 8.2 g/dL (6.4-8.9); eGFR CKD-EPI 65.1 (>60)
[2022-02-03] MEDS ORDERED: LORazepam 2 mg VIAL 1 ml IV PUSH SCH (18:00)
[2022-02-03 18:06] LABS: Alcohol, S < 13 mg/dL (<13)
[2022-02-03 18:09] LABS: High Sensitivity Troponin 1 Hr 12 pg/mL (<20)
[2022-02-03] MEDS ORDERED: LORazepam 2 mg VIAL 1 ml IV PUSH ONE (18:31)
[2022-02-03] MEDS ORDERED: Acetaminophen IV 1 GM/100ML 1,000 MG/100 ML BAG IV ONE (19:43)
[2022-02-03] MEDS ORDERED: Al Hydrox/Mg Hydrox/Simet LIQ 30 ML UDC PO PRN (21:45)
[2022-02-03] MEDS ORDERED: Ondansetron 4 mg VIAL 2 MG/ML 2 ml VIAL IV PRN (21:45)
[2022-02-03] MEDS ORDERED: Dextrose 50% Syringe 50 ml 25 GM/50 ML SYRINGE IV PUSH PRN (21:49)
[2022-02-03] MEDS ORDERED: Lactated Ringers 1000 ml BAG 1,000 ML IV SCH (22:00)
[2022-02-04] MEDS: Insulin GLARGINE 100 un/ml 10 ml VIAL SUBCUT SCH ×2 (00:45→22:06)
[2022-02-04 01:05] LABS: Urine Appearance Clear; Urine Bilirubin Negative (Negative); Urine Blood Negative (Negative); Urine Color Yellow; Urine Glucose 3+(>=500 mg/dL) (Negative); Urine Ketones 1+ (Negative); Urine Nitrite Negative (Negative); Urine Protein Negative (Negative); Urine Specific Gravity 1.026 (1.002-1.030); Urine Urobilinogen Negative (Negative)
[2022-02-04 06:30] LABS: ABS Lymphocytes 1.3 10^3/ul (1.0-4.8); ABS Neutrophils 6.2 10^3/ul (1.5-7.7); Eosinophil % 0.1 %; Hematocrit 45 % (42-52); Hemoglobin 15.5 g/dL (14.0-18.0); Lymphocyte % 15.7 %; Mean Corpuscular HGB Conc 34 g/dL (31-36); Mean Corpuscular Hemoglobin 33 pg (27-31); Mean Corpuscular Volume 95 fL (80-94); Mean Platelet Volume 7.7 fL (7.4-10.4); Nucleated Red Blood Cells % 0.1; Platelet Count 207 10^3/uL (150-450); Red Blood Count 4.78 10^6 /uL (4.18-5.48); Red Cell Distribution Width 13 % (10-15); White Blood Count 8.6 10^3/uL (3.5-10.8)
[2022-02-04 06:52] LABS: Albumin/Globulin Ratio 1.5 (1-3); Globulin 2.6 g/dL (2-4); Potassium 4.2 mmol/L (3.5-5.0); Total Bilirubin 1.5 mg/dL (0.2-1.0); Total Protein 6.6 g/dL (6.4-8.9); eGFR CKD-EPI 92.2 (>60)
[2022-02-04] MEDS: Multivitamins/Minerals TAB PO SCH (08:05)
[2022-02-04] MEDS ORDERED: Lidocaine PATCH 5% PATCH TRANSDERM ONE (09:12)
[2022-02-04] MEDS ORDERED: fentaNYL 100 mcg/2 ml 50 MCG/ML VIAL IV SLOW PU ONE (09:59)
[2022-02-04] MEDS ORDERED: Sulfur Hexaflouride MICROSPHR 25 MG VIAL ONE (12:04)
[2022-02-04] MEDS ORDERED: Morphine 2 MG/ML SYRINGE IV PRN (14:35)
[2022-02-04 18:34] LABS: Amylase 15 U/L (29-103); Lipase 87 U/L (11.0-82.0)
[2022-02-05 06:53] LABS: Calcium 8.8 mg/dL (8.6-10.3); Magnesium 2.3 mg/dL (1.9-2.7); Potassium 3.8 mmol/L (3.5-5.0); eGFR CKD-EPI 92.2 (>60)
[2022-02-05] MEDS: Multivitamins/Minerals TAB PO SCH (07:29)
[2022-02-05] MEDS: Insulin GLARGINE 100 un/ml 10 ml VIAL SUBCUT SCH (21:28)
[2022-02-06] MEDS: Multivitamins/Minerals TAB PO SCH (09:11)
[2022-02-06 17:17] VITALS: BP 128/75
[2022-02-07] MEDS ORDERED: cloNIDine 0.3 MG PATCH 0.3 MG/24 HR 7 DAY PATCH TRANSDERM SCH (09:00)
== END 2022-02-06 17:52 | disposition home or self-care (01) | DRG 309 ==
LOC: ED 16:01 → EDHOLD 20:20 → SUATTDRO 20:20 → EDHOLD 02-04 08:03 → MEDTELE 02-04 19:01
PROVIDERS: ADMIT Internal Medicine; ATTEND Internal Medicine